=== PATIENT | female | born 1980 | race Caucasian/White ===

== ENCOUNTER 2017-06-16 10:44 | Emergency (ER) | payer OTHER ==
[2017-06-16] MEDS ORDERED: SODIUM CHLORIDE 0.9% 1,000 ML IV ONE ×2 (11:34→12:16)
[2017-06-16 11:37] LABS: BASOPHILS # (AUTO) 0.1 10^3/uL (0.0-0.1); BASOPHILS % (AUTO) 0.7 %; EOSINOPHILS # (AUTO) 0.1 10^3/uL (0.0-0.7); EOSINOPHILS % (AUTO) 0.7 %; HCT - HEMATOCRIT 45.8 % (37.0-47.0); HGB - HEMOGLOBIN 15.4 g/dL (12.0-16.0); LYMPHOCYTES # (AUTO) 0.5 10^3/uL (1.5-3.5); LYMPHOCYTES % (AUTO) 3.4 %; MEAN CORPUSCULAR HEMOGLOBIN 28.7 pg (27.0-31.0); MEAN CORPUSCULAR HGB CONC 33.6 g/dL (32.0-36.0); MEAN CORPUSCULAR VOLUME 85.3 fL (81.0-99.0); MONOCYTES # (AUTO) 0.3 10^3/uL (0.0-1.0); MONOCYTES % (AUTO) 1.9 %; NEUTROPHILS # (AUTO) 13.5 10^3/uL (1.5-6.6); NEUTROPHILS % (AUTO) 93.3 %; RED BLOOD COUNT 5.37 10^6/uL (4.20-5.40); RED CELL DISTRIBUTION WIDTH 13.4 % (12.0-15.0); UNCORRECTED WHITE BLOOD COUNT 14.5 x10^3/uL; WHITE BLOOD COUNT 14.5 x10^3/uL (4.8-10.8)
[2017-06-16 11:37] LABS: BILIRUBIN,URINE NEGATIVE (NEGATIVE)
[2017-06-16 11:38] LABS: UA w/ MICROSCOPIC CHARGE YES
[2017-06-16 11:39] LABS: HCG UR QUAL NEGATIVE
[2017-06-16 11:40] LABS: ALBUMIN/GLOBULIN RATIO 1.4 (1.0-2.2); BILIRUBIN,TOTAL 0.5 mg/dL (0.2-1.0); CALCIUM 9.6 mg/dL (8.5-10.3); CREATININE 0.8 mg/dL (0.4-1.0); POTASSIUM 4.2 mmol/L (3.5-5.0); TOTAL PROTEIN 8.2 g/dL (6.7-8.2)
[2017-06-16 11:54] LABS: WBC,URINE 0-3 /HPF (0-5)
[2017-06-16 11:55] LABS: UR CULTURE IF IND NOT INDICATED
--- NOTE | 2017-06-16 12:03 | ED Physician Documentation ---
PD HPI NVD - Stated complaint Stated Complaint: VOMITING,DIARRHEA - Chief complaint Chief Complaint: Abd Pain - History obtained from History obtained from: Patient - History of Present Illness Timing - onset: Today (about 6 am this morning.) Timing - duration: Hours Timing - details: Abrupt onset, Still present Associated symptoms: Abdominal pain, Loss of appetite. No: Fever Contributing factors: Sick contact (other family members with similar a few days ago) Improved by: No: Vomiting Worsened by: Eating, Position Similar symptoms before: Has not had sx before Recently seen: Not recently seen Review of Systems Constitutional: reports: Chills, Myalgias, Fatigue. denies: Fever Nose: denies: Rhinorrhea / runny nose, Congestion Throat: denies: Sore throat Cardiac: denies: Chest pain / pressure Respiratory: denies: Cough GI: reports: Abdominal Pain, Nausea, Vomiting, Diarrhea. 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: Breast reduction - Present Medications Home Medications: Ambulatory Orders Medication Instructions Recorded Confirmed HYDROcod/ACETAM 5/325 [[place] 5/325] 1 - 2 ea PO Q6H PRN #15 tablet 09/11/1507/21 Propranolol [Inderal] 10 mg PO BID 09/11/15 06/16/17 Ibuprofen [Motrin] 1 tab PO Q8HR PRN 06/03/16 06/16/17 Diphenoxylate HCl/Atropine 1 each PO Q6H PRN #12 tablet 06/16/17 [Diphenoxylate-Atrop 2.5-0.025] Ondansetron Odt [Zofran] 4 mg TL Q6H PRN #15 tablet 06/16/17 - Allergies Allergies/Adverse Reactions: Allergies Allergy/AdvReac Type Severity Reaction Status Date / Time amoxicillin Allergy Unknown Verified 06/16/17 10:50 - Social History Does the pt smoke?: No Smoking Status: Never smoker Does the pt drink ETOH?: No Does the pt have substance abuse?: No - Immunizations Immunizations are current?: Yes - POLST Patient has POLST: No PD ED PE NORMAL - Vitals Vital signs reviewed: Yes - General General: Alert and oriented X 3, Well developed/nourished, Other (appears ill and has emesis bag in hand. ) - HEENT HEENT: PERRL (nonicteric), Pharynx benign - Neck Neck: Supple, no meningeal sign, No adenopathy - Cardiac Cardiac: RRR, No murmur - Respiratory Respiratory: Clear bilaterally - Abdomen Abdomen: Normal bowel sounds, Soft, Non distended, No organomegaly, Other ( diffusely mild tender without guarding. ) - Female Female : Deferred - Rectal Rectal: Deferred - Back Back: No CVA TTP - Derm Derm: Normal color, Warm and dry - Neuro Neuro: Alert and oriented X 3, No motor deficit, Normal speech Results - Vitals Vitals: Vital Signs - 24 hr 06/16/17 06/16/17 12:33 13:16 Heart Rate 109 H 105 H Respiratory 16 16 Rate Blood Pressure 147/97 H 148/82 H O2 Saturation 100 98 Oxygen O2 Source Room air - Labs Labs: Laboratory Tests 06/16/17 06/16/17 06/16/17 11:00 11:00 11:30 WBC 14.5 H RBC 5.37 Hgb 15.4 Hct 45.8 MCV 85.3 MCH 28.7 MCHC 33.6 RDW 13.4 Plt Count 278 MPV 9.0 Neut # 13.5 H Lymph # 0.5 L [place] # 0.3 Eos # 0.1 Baso # 0.1 Absolute Nucleated RBC 0.00 Nucleated RBC % 0.0 Sodium 138 Potassium 4.2 Chloride 106 Carbon Dioxide 19 L Anion Gap 13.0 BUN 17 Creatinine 0.8 Estimated GFR (MDRD) 80 L Glucose 135 H Calcium 9.6 Total Bilirubin 0.5 AST 36 ALT 65 H Alkaline Phosphatase 79 Total Protein 8.2 Albumin 4.8 Globulin 3.4 Albumin/Globulin Ratio 1.4 Lipase 26 Urine Color YELLOW Urine Clarity CLEAR Urine pH 6.0 Ur Specific [place] 1.025 Urine Protein NEGATIVE Urine Glucose (UA) NEGATIVE Urine Ketones NEGATIVE Urine Occult Blood TRACE-INTA Urine Nitrite NEGATIVE Urine Bilirubin NEGATIVE Urine Urobilinogen 0.2 (NORMAL) Ur Leukocyte Esterase TRACE H Urine RBC 0-5 Urine WBC 0-3 Ur Squamous Epith Cells MOD Squamous H Urine Bacteria None Seen Ur Microscopic Review INDICATED Urine Culture Comments NOT INDICATED Urine HCG, Qual NEGATIVE PD MEDICAL DECISION MAKING - ED course Complexity details: reviewed results, re-evaluated patient (feeling much better with fluids and meds. and other family members had similar last week, now she does. Sounds viral. ), considered differential, d/w patient Departure - Departure Disposition: 01 Home, Self Care Clinical Impression: Nausea vomiting and diarrhea, Dehydration Condition: Stable Record reviewed to determine appropriate education?: Yes Instructions: ED Gastroenteritis Viral Prescriptions: Diphenoxylate HCl/Atropine [Diphenoxylate-Atrop 2.5-0.025] 1 each PO Q6H PRN # 12 tablet PRN Reason: Diarrhea Ondansetron Odt [Zofran] 4 mg TL Q6H PRN #15 tablet PRN Reason: Nausea / Vomiting Comments: Frequent fluids through the day today. [place] food initially and progress as able. Ondansetron if needed for nausea. Diphenoxylate if needed for diarrhea. Recheck if not better over the next 1-2 days. Tylenol if needed for fevers or aches. Presume this is a viral illness that will last 1-2 days and then improve. Discharge Date/Time: 06/16/17 13:21
[2017-06-16] MEDS ORDERED: ONDANSETRON 4 MG/2 ML VIAL IVP STA (12:16)
[2017-06-16] MEDS ORDERED: DIPHENOX/ATROPINE 2.5/0.025 MG TABLET PO STA (12:17)
[2017-06-16] MEDS ORDERED: KETOROLAC 60 MG/2 ML VIAL IVP STA (12:18)
[2017-06-16] MEDS ORDERED: DIPHENOX/ATROPINE 2.5/0.025 MG TABLET PO ONE (12:30)
[2017-06-16] MEDS ORDERED: KETOROLAC 30 MG/ML VIAL ONE (12:30)
[2017-06-16] MEDS ORDERED: ONDANSETRON 4 MG/2 ML VIAL ONE (12:30)
[2017-06-16 13:17] VITALS: BP 148/82
== END 2017-06-16 13:21 | disposition home or self-care (01) ==
LOC: ED 10:44
DX: R11.2 Nausea with vomiting, unspecified (principal); R19.7 Diarrhea, unspecified; E86.0 Dehydration; I10 Essential (primary) hypertension
CPT/HCPCS: 36415; 80053; 81001; 81025; 83690; 85025; 96361; 96374; 96375; 99283; 99284; A9270; 81003; 87086

== ENCOUNTER 2017-06-17 21:07 | Emergency (ER) | payer OTHER ==
--- NOTE | 2017-06-17 21:33 | ED Physician Documentation ---
PD HPI ABD PAIN - Stated complaint Stated Complaint: ABD PX - Chief complaint Chief Complaint: Abd Pain - History obtained from History obtained from: Patient - History of Present Illness Timing - onset: How many days ago (2) Timing - details: Gradual onset, Waxing and waning Pain level max: 10 Pain level now: 9 Quality: Pain Location: Other (across lower abdomen, worst in RLQ) Radiation: Other (no radiation) Improved by: Laying still Worsened by: Moving, Palpation Associated symptoms: Fever (104.4), Nausea ("mostly gone", per patient), Diarrhea (worsening). No: Vomiting Similar symptoms before: No diagnosis Recently seen: Emergency Dept - Additional information Additional information: T+R from this ED yesterday for nausea, vomiting, and diarrhea, along with abdominal cramping pain. She was prescribed lomotil and zofran, and says the nausea is "mostly gone", but that the diarrhea worsened during the day. She also notes sweats and chills, took tylenol at 2 PM. came home from work this evening and measured her temperature (she had not measured her temperature during the day), and found result to be 104.4 and thus brought her to ED. Review of Systems Constitutional: reports: Fever, Chills, Sweats Throat: denies: Sore throat Cardiac: reports: Reviewed and negative Respiratory: reports: Reviewed and negative GI: reports: Abdominal Pain, Nausea ("mostly gone" , per patient), Diarrhea. denies: Vomiting : denies: Dysuria, Frequency Skin: reports: Reviewed and negative Musculoskeletal: reports: Reviewed and negative Neurologic: denies: Generalized weakness, Headache PD PAST MEDICAL HISTORY - Past Medical History Cardiovascular: Hypertension, Arrhythmia Neuro: Headache/migraine - Past Surgical History Past Surgical History: Yes /[employer] ADJUST[employer]: Breast reduction - Present Medications Home Medications: Ambulatory Orders Medication Instructions Recorded Confirmed Propranolol [Inderal] 10 mg PO BID 09/11/15 06/17/17 Ibuprofen [Motrin] 1 tab PO Q8HR PRN 06/03/16 06/17/17 Diphenoxylate HCl/Atropine 1 each PO Q6H PRN #12 tablet 06/16/17 06/17/17 [Diphenoxylate-Atrop 2.5-0.025] Ondansetron Odt [Zofran] 4 mg TL Q6H PRN #15 tablet 06/16/17 06/17/17 HYDROcod/ACETAM 5/325 [[place] 5/325] 1 - 2 ea PO Q6H PRN #12 tablet 06/18/17 - Allergies Allergies/Adverse Reactions: Allergies Allergy/AdvReac Type Severity Reaction Status Date / Time amoxicillin Allergy Unknown Verified 06/17/17 21:16 - Social History Does the pt smoke?: No Smoking Status: Never smoker Does the pt drink ETOH?: No Does the pt have substance abuse?: No - Immunizations Immunizations are current?: Yes - POLST Patient has POLST: No PD ED PE NORMAL - Vitals Vital signs reviewed: Yes - General General: Alert and oriented X 3, No acute distress, Well developed/nourished - HEENT HEENT: Moist mucous membranes - Neck Neck: Supple, no meningeal sign - Cardiac Cardiac: RRR, No murmur - Respiratory Respiratory: No respiratory distress, Clear bilaterally - Abdomen Abdomen: Soft, Non distended, Other (RLQ tenderness without guarding or rebound) - Back Back: No CVA TTP - Derm Derm: Normal color, Warm and dry, No rash - Extremities Extremities: No edema Results - Vitals Vitals: Vital Signs - 24 hr 06/17/17 06/18/17 21:11 00:37 Temperature 38.5 C H 36.9 C Heart Rate 101 H 89 Respiratory 19 16 Rate Blood Pressure 143/90 H 100/51 L O2 Saturation 97 97 Oxygen O2 Source Room air - Labs Labs: Laboratory Tests 06/17/17 06/17/17 06/17/17 22:10 22:10 22:35 WBC 7.7 RBC 4.60 Hgb 13.1 Hct 39.5 MCV 85.9 MCH 28.6 MCHC 33.3 RDW 13.3 Plt Count 200 MPV 8.1 Neut # 5.8 Lymph # 1.2 L [place] # 0.5 Eos # 0.1 Baso # 0.0 Absolute Nucleated RBC 0.00 Nucleated RBC % 0.0 Sodium 137 Potassium 2.9 L Chloride 104 Carbon Dioxide 22 Anion Gap 11.0 BUN 5 L Creatinine 0.7 Estimated GFR (MDRD) 93 Glucose 112 H Calcium 8.1 L Total Bilirubin 0.5 AST 52 H ALT 77 H Alkaline Phosphatase 51 Total Protein 6.7 Albumin 3.5 Globulin 3.2 Albumin/Globulin Ratio 1.1 Lipase 15 L Urine Color YELLOW Urine Clarity CLEAR Urine pH 6.0 Ur Specific [place] <=1.005 Urine Protein NEGATIVE Urine Glucose (UA) NEGATIVE Urine Ketones NEGATIVE Urine Occult Blood TRACE-LYSE Urine Nitrite NEGATIVE Urine Bilirubin NEGATIVE Urine Urobilinogen 0.2 (NORMAL) Ur Leukocyte Esterase SMALL H Urine RBC 0-5 Urine WBC 11-25 H Ur Squamous Epith Cells MOD Squamous H Urine Bacteria Few Ur Microscopic Review INDICATED Urine Culture Comments NOT INDICATED - Rads (name of study) CT A/P Radiology: Prelim report reviewed, See rad report PD MEDICAL DECISION MAKING - ED course Complexity details: reviewed old records, reviewed results, re-evaluated patient , considered differential, d/w patient ED course: After tests resulted, including CT A/P (which is unremarkable and does not demonstrate etiology of pain, fever, or N/V/D), reevaluated and patient appears comfortable, reports significant improvement in her pain. She did not have any BM, diarrheal or otherwise, while in ED and thus sample not collected. She denies recent antibiotic use and denies h/o similar symptoms (diarrhea, abdominal pain, fevers); IBD and c. diff colitis considered, but these factors, as well as a lack of inflammatory changes on CT and normal WBC make these unlikely. Appendicitis also considered, although this would be a particularly high fever for this diagnosis, and there is no evidence on CT to support the diagnosis. Patient and spouse report that several family members have had GI symptoms recently (N/V/D), raising suspicion for infectious gastroenteritis. She was able to tolerate PO in ED (potassium and vicodin). Instructed to return if worse, and to f/u with PMD next available appointment Departure - Departure Disposition: 01 Home, Self Care Clinical Impression: Hypokalemia Abdominal pain Qualifiers: Abdominal location: generalized Qualified Code(s): R10.84 - Generalized abdominal pain Fever Qualifiers: Fever type: unspecified Qualified Code(s): R50.9 - Fever, unspecified Condition: Good Instructions: ED Abdominal Pain Unkn Cause Prescriptions: HYDROcod/ACETAM 5/325 [[place] 5/325] 1 - 2 ea PO Q6H PRN #12 tablet PRN Reason: Pain Comments: Follow up with your primary care physician/provider in 3-5 days Forms: Activity restrictions Discharge Date/Time: 06/18/17 00:58
[2017-06-17] MEDS ORDERED: SODIUM CHLORIDE 0.9% 1,000 ML IV STA (22:06)
[2017-06-17] MEDS ORDERED: MORPHINE 2 MG/ML SYRINGE IVP STA (22:06)
[2017-06-17] MEDS ORDERED: ACETAMINOPHEN 1,000 MG/100 ML 100 ML IV STA (22:06)
[2017-06-17] MEDS ORDERED: MORPHINE 2 MG/ML SYRINGE ONE (22:17)
[2017-06-17] MEDS ORDERED: ACETAMINOPHEN 1,000 MG/100 ML 100 ML IV ONE (22:18)
[2017-06-17 22:19] LABS: BASOPHILS % (AUTO) 0.3 %; EOSINOPHILS # (AUTO) 0.1 10^3/uL (0.0-0.7); EOSINOPHILS % (AUTO) 1.7 %; HCT - HEMATOCRIT 39.5 % (37.0-47.0); HGB - HEMOGLOBIN 13.1 g/dL (12.0-16.0); LYMPHOCYTES # (AUTO) 1.2 10^3/uL (1.5-3.5); LYMPHOCYTES % (AUTO) 15.8 %; MEAN CORPUSCULAR HEMOGLOBIN 28.6 pg (27.0-31.0); MEAN CORPUSCULAR HGB CONC 33.3 g/dL (32.0-36.0); MEAN CORPUSCULAR VOLUME 85.9 fL (81.0-99.0); MEAN PLATELET VOLUME 8.1 fL (7.9-10.8); MONOCYTES # (AUTO) 0.5 10^3/uL (0.0-1.0); MONOCYTES % (AUTO) 6.2 %; NEUTROPHILS # (AUTO) 5.8 10^3/uL (1.5-6.6); RED CELL DISTRIBUTION WIDTH 13.3 % (12.0-15.0); UNCORRECTED WHITE BLOOD COUNT 7.7 x10^3/uL; WHITE BLOOD COUNT 7.7 x10^3/uL (4.8-10.8)
[2017-06-17 22:32] LABS: ALBUMIN/GLOBULIN RATIO 1.1 (1.0-2.2); BILIRUBIN,TOTAL 0.5 mg/dL (0.2-1.0); CALCIUM 8.1 mg/dL (8.5-10.3); CREATININE 0.7 mg/dL (0.4-1.0); POTASSIUM 2.9 mmol/L (3.5-5.0); TOTAL PROTEIN 6.7 g/dL (6.7-8.2)
[2017-06-17] MEDS ORDERED: ONDANSETRON 4 MG/2 ML VIAL IVP STA (22:40)
[2017-06-17 22:41] LABS: BILIRUBIN,URINE NEGATIVE (NEGATIVE)
[2017-06-17 22:45] LABS: UA w/ MICROSCOPIC CHARGE YES
[2017-06-17] MEDS ORDERED: ONDANSETRON 4 MG/2 ML VIAL ONE (22:48)
[2017-06-17 22:51] LABS: UR CULTURE IF IND NOT INDICATED
[2017-06-17] MEDS ORDERED: IOPAMIDOL-300 100 ML VIAL ONE (22:52)
[2017-06-17] MEDS ORDERED: IOPAMIDOL-300 100 ML VIAL IVP ONE (23:14)
--- NOTE | 2017-06-17 23:30 | CT Preliminary Report ---
Exam: CT ABDOMEN/PELVIS W/ IMPRESSION: 1. No acute inflammatory or obstructive process seen in the abdomen or pelvis. 2. Fatty liver. [facility] SITE ID: [id number]
--- NOTE | 2017-06-17 23:38 | CT Report ---
EXAM: CT ABDOMEN AND PELVIS EXAM DATE: 06/17/2017 11:16 PM. CLINICAL HISTORY: Right lower quadrant pain, fever. COMPARISONS: None. TECHNIQUE: Routine helical CT imaging was performed through the abdomen and pelvis. IV contrast: 100 mL Isovue 300. Enteric contrast: No . Reconstructions: Coronal and sagittal. In accordance with CT protocol optimization, one or more of the following dose reduction techniques w ere utilized for this exam: automated exposure control, adjustment of mA and/or KV based on patient s ize, or use of iterative reconstructive technique. FINDINGS: Lung Bases: Unremarkable. Liver: Fatty. No suspicious masses. Gallbladder/Bile Ducts: Unremarkable. Spleen: Unremarkable. Pancreas: Unremarkable. Adrenal Glands: Unremarkable. Kidneys: Unremarkable. No suspicious masses or hydronephrosis. Peritoneal Cavity/Bowel: No bowel obstruction or inflammatory process seen. No free air or significan t free fluid. No masses or adenopathy. The appendix is normal. No excessive stool burden. Pelvic Organs: Bladder, uterus, and adnexa appear unremarkable. Vasculature: No aneurysms or other significant abnormality. Bones: No significant abnormality. Other: None. IMPRESSION: 1. No acute inflammatory or obstructive process seen in the abdomen or pelvis. 2. Fatty liver. [facility] Referring Provider Line: [phone] SITE ID: [id number]
[2017-06-18 00:38] VITALS: BP 100/51
[2017-06-18] MEDS ORDERED: POTASSIUM BICARB 25 MEQ TABLET PO STA (00:46)
[2017-06-18] MEDS ORDERED: HYDROcod/ACETAM 5/325 MG TABLET PO STA (00:46)
[2017-06-18] MEDS ORDERED: HYDROcod/ACETAM 5/325 MG TABLET ONE (00:58)
[2017-06-18] MEDS ORDERED: POTASSIUM BICARB 25 MEQ TABLET PO ONE (00:58)
== END 2017-06-18 00:58 | disposition home or self-care (01) ==
LOC: ED 21:07
DX: E87.6 Hypokalemia (principal); R10.84 Generalized abdominal pain; R50.9 Fever, unspecified; I10 Essential (primary) hypertension
CPT/HCPCS: 36415; 74177; 80053; 81001; 83690; 85025; 96361; 96365; 96375; 99283; A9270; J0131; J2270; Q9967; 81003; 87086

== ENCOUNTER 2018-03-20 07:57 | Outpatient (CLI) | payer OTHER ==
[2018-03-20 08:24] VITALS: BP 132/84
== END 2018-03-20 09:35 | disposition home or self-care (01) ==
LOC: WFO 07:57 → FBP 08:00 → WFO 09:35
PROVIDERS: ATTEND Obstetrics & Gynecology
DX: O09.523 Supervision of elderly multigravida, third trimester (principal); Z3A.36 36 weeks gestation of pregnancy
CPT/HCPCS: 99212

== ENCOUNTER 2018-03-31 21:01 | Inpatient (IN) | payer OTHER ==
[2018-03-31] MEDS ORDERED: PROCHLORPERAZINE 10 MG/2 ML VIAL IVP STA (21:26)
[2018-03-31] MEDS ORDERED: diphenhydrAMINE INJ 50 MG/ML VIAL IVP STA (21:26)
[2018-03-31] MEDS ORDERED: KETOROLAC 60 MG/2 ML VIAL IVP STA (21:26)
[2018-03-31] MEDS ORDERED: SODIUM CHLORIDE 0.9% 1,000 ML IV ONE (21:26)
--- NOTE | 2018-03-31 21:28 | ED Physician Documentation ---
PD HPI HEADACHE - Stated complaint Stated Complaint: HARDEN - Chief complaint Chief Complaint: Heent - History obtained from History obtained from: Patient, Family - History of Present Illness Timing - onset: Today Timing - onset during: Rest Timing - duration: Days (1) Timing - details: Gradual onset Pain level max: 9 Pain level now: 9 Location: Right Quality: Throbbing, Aching Associated symptoms: Nausea, Other (photophobia). No: Fever, Stiff neck, Vomiting, Weakness, Numbness, Syncope, Seizure Improved by: Rest, Dark room Worsened by: Light, Noise, Moving Contributing factors: No: Anticoagulated, Possible carbon monoxide, Hypertension , Recent illness Similar symptoms before: Diagnosis (migraines) - Additional information Additional information: 1 week with an epidural and vaginal delivery. not . States this is similar to her prior headaches. She states that normally her blood pressure is between 125 and 135 systolic. Review of Systems Ten Systems: 10 systems reviewed and negative Constitutional: denies: Fever, Chills Eyes: reports: Photophobia. denies: Decreased vision Ears: denies: Ear pain Nose: denies: Rhinorrhea / runny nose, Congestion Throat: denies: Sore throat Cardiac: denies: Chest pain / pressure Respiratory: denies: Dyspnea, Cough GI: denies: Abdominal Pain, Vomiting, Diarrhea : denies: Dysuria, Frequency, Hesitancy Skin: denies: Rash Musculoskeletal: denies: Neck pain, Back pain Neurologic: denies: Focal weakness, Numbness, Confused, Altered mental status, Headache PD PAST MEDICAL HISTORY - Past Medical History Cardiovascular: Hypertension, Arrhythmia - Past Surgical History Past Surgical History: Yes /[place] [employer] [place]: Breast reduction - Present Medications Home Medications: Ambulatory Orders Medication Instructions Recorded Confirmed Propranolol [Inderal] 10 mg PO BID 09/11/15 06/17/17 Ibuprofen [Motrin] 1 tab PO Q8HR PRN 06/03/16 06/17/17 Diphenoxylate HCl/Atropine 1 each PO Q6H PRN #12 tablet 06/16/17 06/17/17 [Diphenoxylate-Atrop 2.5-0.025] Ondansetron Odt [Zofran] 4 mg TL Q6H PRN #15 tablet 06/16/17 06/17/17 HYDROcod/ACETAM 5/325 [[place] 5/325] 1 - 2 ea PO Q6H PRN #12 tablet 06/18/17 - Allergies Allergies/Adverse Reactions: Allergies Allergy/AdvReac Type Severity Reaction Status Date / Time amoxicillin Allergy Unknown Verified 03/31/18 21:10 - Social History Does the pt smoke?: No Smoking Status: Never smoker Does the pt drink ETOH?: No Does the pt have substance abuse?: No - Immunizations Immunizations are current?: Yes - POLST Patient has POLST: No PD ED PE NORMAL - Vitals Vital signs reviewed: Yes - General General: Alert and oriented X 3 - HEENT HEENT: Atraumatic, PERRL, EOMI, Ears normal, Moist mucous membranes, Pharynx benign - Neck Neck: Supple, no meningeal sign, No JVD, No bruit - Cardiac Cardiac: RRR, Strong equal pulses - Respiratory Respiratory: No respiratory distress - Abdomen Abdomen: Soft, Non tender, Non distended - Back Back: No spinal TTP - Derm Derm: Warm and dry - Extremities Extremities: No calf tenderness / cord, Other (trace LE edema.) - Neuro Neuro: Alert and oriented X 3, wage hand 2-12 intact, No motor deficit, No sensory deficit, Normal speech Eye Opening: Spontaneous Motor: Obeys Commands Verbal: Oriented GCS Score: 15 - Psych Psych: Normal mood, Normal affect Results - Vitals Vitals: Vital Signs - 24 hr 03/31/18 03/31/18 21:06 23:09 Temperature 36.9 C 36.8 C Heart Rate 80 57 L Respiratory 17 15 Rate Blood Pressure 183/108 H 154/109 H O2 Saturation 98 94 Oxygen O2 Source Room air - Labs Labs: Laboratory Tests 03/31/18 03/31/18 03/31/18 21:47 21:47 21:55 WBC 10.9 H RBC 4.34 Hgb 12.7 Hct 38.1 MCV 87.7 MCH 29.3 MCHC 33.4 RDW 14.4 Plt Count 277 MPV 8.1 Neut # (Auto) 7.9 H Lymph # (Auto) 2.2 [place] # (Auto) 0.5 Eos # (Auto) 0.2 Baso # (Auto) 0.0 Absolute Nucleated RBC 0.01 Nucleated RBC % 0.0 Sodium 140 Potassium 3.7 Chloride 106 Carbon Dioxide 25 Anion Gap 9.0 BUN 12 Creatinine 0.7 Estimated GFR (MDRD) 93 Glucose 92 Calcium 8.6 Total Bilirubin 0.4 AST 17 ALT 27 Alkaline Phosphatase 89 Total Protein 6.6 L Albumin 3.4 Globulin 3.2 Albumin/Globulin Ratio 1.1 Lipase 39 Urine Color YELLOW Urine Clarity HAZY Urine pH 6.5 Ur Specific [place] <=1.005 Urine Protein NEGATIVE Urine Glucose (UA) NEGATIVE Urine Ketones NEGATIVE Urine Occult Blood LARGE H Urine Nitrite NEGATIVE Urine Bilirubin NEGATIVE Urine Urobilinogen 0.2 (NORMAL) Ur Leukocyte Esterase TRACE H Urine RBC 0-5 Urine WBC 4-5 Ur Squamous Epith Cells FEW Squamous Urine Bacteria None Seen Ur Microscopic Review INDICATED Urine Culture Comments INDICATED - [facility] (name of study) ct angio head Radiology: Prelim report reviewed, EMP read contemporaneously, See rad report ( No acute abnormality) ct angio neck Radiology: Prelim report reviewed, EMP read contemporaneously, See rad report ( CT Head: No acute intracranial abnormality. Specifically, no evidence of acute infarct, hemorrhage, or mass lesion. No abnormal enhancement. Near complete opacification of the left maxillary antrum. Partial opacification of the left sphenoid sinus. CTA Head: Normal CTA of the head. No significant vascular stenosis, dissection, or aneurysm. ) PD MEDICAL DECISION MAKING - ED course Complexity details: reviewed old records, reviewed results, re-evaluated patient , considered differential (No evidence of subarachnoid hemorrhage, aneurysm, Sinus venous thrombosis, tumor or mass), d/w patient, d/w family, d/w practice management consultant ED course: Patient is a 37-year-old female who is in 1 week normal spontaneous vaginal delivery and epidural placement at [facility]. Has developed a headache over the past day and a half. Similar to her prior migraines. She tried butalbital at home without relief. Also tried Motrin. States her normal blood pressure is 125-135 systolic. She did take her usual propanolol today as well. No proteinuria. Normal LFTs. CT angiogram head and neck were ordered. I discussed the case with Dr. Jacinto, OB on-call and will start on mag IV and admit for preeclampsia. This document was made in part using voice recognition software. While efforts are made to proofread this document, sound alike and grammatical errors may occur. - Sepsis Event Vital Signs: Vital Signs - 24 hr 03/31/18 03/31/18 21:06 23:09 Temperature 36.9 C 36.8 C Heart Rate 80 57 L Respiratory 17 15 Rate Blood Pressure 183/108 H 154/109 H O2 Saturation 98 94 Oxygen O2 Source Room air Departure - Departure Disposition: 66 [facility] DC/Xfer Clinical Impression: Headache Qualifiers: Headache type: unspecified Headache chronicity pattern: acute headache Intractability: not intractable Qualified Code(s): R51 - Headache Hypertension Qualifiers: Hypertension type: unspecified Qualified Code(s): I10 - Essential (primary) hypertension Pre-eclampsia Qualifiers: Trimester: unspecified trimester Qualified Code(s): O14.90 - Unspecified pre- eclampsia, unspecified trimester Condition: Stable
[2018-03-31 21:51] LABS: BASOPHILS % (AUTO) 0.3 %; EOSINOPHILS # (AUTO) 0.2 10^3/uL (0.0-0.7); EOSINOPHILS % (AUTO) 1.9 %; HGB - HEMOGLOBIN 12.7 g/dL (12.0-16.0); LYMPHOCYTES # (AUTO) 2.2 10^3/uL (1.5-3.5); LYMPHOCYTES % (AUTO) 20.5 %; MEAN CORPUSCULAR HEMOGLOBIN 29.3 pg (27.0-31.0); MEAN CORPUSCULAR HGB CONC 33.4 g/dL (32.0-36.0); MEAN CORPUSCULAR VOLUME 87.7 fL (81.0-99.0); MEAN PLATELET VOLUME 8.1 fL (7.9-10.8); MONOCYTES # (AUTO) 0.5 10^3/uL (0.0-1.0); NEUTROPHILS # (AUTO) 7.9 10^3/uL (1.5-6.6); NEUTROPHILS % (AUTO) 72.3 %; PLT - PLATELET COUNT 277 10^3/uL (130-450); RED BLOOD COUNT 4.34 10^6/uL (4.20-5.40); RED CELL DISTRIBUTION WIDTH 14.4 % (12.0-15.0); WHITE BLOOD COUNT 10.9 x10^3/uL (4.8-10.8)
[2018-03-31 22:04] LABS: ALBUMIN 3.4 g/dL (3.2-5.5); ALBUMIN/GLOBULIN RATIO 1.1 (1.0-2.2); BILIRUBIN,TOTAL 0.4 mg/dL (0.2-1.0); CALCIUM 8.6 mg/dL (8.5-10.3); CREATININE 0.7 mg/dL (0.4-1.0); TOTAL PROTEIN 6.6 g/dL (6.7-8.2)
[2018-03-31 22:45] LABS: BILIRUBIN,URINE NEGATIVE (NEGATIVE); GLUCOSE, URINE (UA) NEGATIVE (NEGATIVE); KETONES,URINE (UA) NEGATIVE (NEGATIVE); LEUKOCYTE ESTERASE, URINE TRACE (NEGATIVE); NITRITE,URINE NEGATIVE (NEGATIVE); OCCULT BLOOD,URINE LARGE (NEGATIVE); PH,URINE 6.5 PH (5.0-7.5); PROTEIN,URINE NEGATIVE (NEGATIVE); UROBILINOGEN,URINE 0.2 (NORMAL) E.U./dL (NORMAL)
[2018-03-31 22:47] LABS: CLARITY,URINE HAZY (CLEAR)
[2018-03-31 22:54] LABS: BACTERIA,URINE None Seen /HPF (None Seen); RBC,URINE 0-5 /HPF (0-5); SQUAMOUS EPITHELIAL CELL,UR FEW Squamous (<= Few)
[2018-03-31] MEDS ORDERED: IOPAMIDOL-300 100 ML VIAL ONE (23:30)
[2018-04-01] MEDS ORDERED: MAGNESIUM SULFATE 2 GRAM 2 GM/50 ML BAG IV ONE ×2 (00:03)
[2018-04-01] MEDS ORDERED: IOPAMIDOL-300 100 ML VIAL IVP ONE ×2 (00:04→08:09)
[2018-04-01] MEDS ORDERED: SODIUM CHLORIDE FLUSH 0.9% 10 ML SYRINGE IVP PRN (00:47)
[2018-04-01] MEDS ORDERED: ONDANSETRON 4 MG/2 ML VIAL IVP PRN (00:47)
[2018-04-01] MEDS ORDERED: LABETALOL 100 MG TABLET PO SCH ×4 (00:54→14:00)
--- NOTE | 2018-04-01 00:55 | CT Report ---
Reason: 1 week post , headache Procedure Date: 04/01/2018 Accession Number: [id number] / [id number] Procedure: CT - Head Angio CPT Code: FULL RESULT: EXAM: CT ANGIOGRAM HEAD. CT SCAN OF THE HEAD WITHOUT AND WITH CONTRAST. EXAM DATE: 04/01/2018 12:06 AM CLINICAL HISTORY: 1 week . Headache. COMPARISON: None. TECHNIQUE: - CT Scan Head: Using a multidetector scanner, axial images were acquired from the foramen magnum to the skull vertex prior to and following contrast administration. - CT Angiogram: Using a multidetector scanner, high-resolution axial images were acquired from the skull base through vertex following rapid infusion of intravenous contrast. Reformats: Multiplanar MIP reformats were reconstructed. Nascet criteria used for stenosis measurement. IV Contrast: ISOVUE 300 80mL. In accordance with CT protocol optimization, one or more of the following dose reduction techniques were utilized for this exam: automated exposure control, adjustment of mA and/or KV based on patient size, or use of iterative reconstructive technique. FINDINGS: NON-CONTRAST HEAD: Parenchyma: No intraparenchymal hemorrhage. No evidence of mass, midline shift, or CT findings of infarction. Benedict-white differentiation is distinct. No abnormal enhancement. Extraaxial Spaces: Normal for age. No subdural or epidural collections identified. Ventricles: Normal in size and position. Sinuses and orbits: Near complete opacification of the left maxillary antrum. Partial opacification of the left sphenoid. Other paranasal sinuses and mastoids are unremarkable. Bones: No evidence of fracture or calvarial defect. Other: None. POST-CONTRAST HEAD: No abnormal enhancement. CT ANGIOGRAM HEAD: Vertebral arteries are codominant. Basilar artery and both posterior cerebral arteries are patent and unremarkable. Both internal carotid arteries, anterior and middle cerebral arteries are patent and unremarkable. DURAL VENOUS SINUSES AND MAJOR CENTRAL VEINS: Patent. IMPRESSION: CT Head: No acute intracranial abnormality. Specifically, no evidence of acute infarct, hemorrhage, or mass lesion. No abnormal enhancement. Near complete opacification of the left maxillary antrum. Partial opacification of the left sphenoid sinus. CTA Head: Normal CTA of the head. No significant vascular stenosis, dissection, or aneurysm. [facility]
[2018-04-01] MEDS ORDERED: MAGNESIUM SULFATE IN WATER 20 GM/500 ML IV.SOLN IV SCH ×2 (01:00→07:48)
--- NOTE | 2018-04-01 01:02 | CT Report ---
Reason: 1 week post , headache Procedure Date: 04/01/2018 Accession Number: [id number] / [id number] Procedure: CT - Neck Angio CPT Code: FULL RESULT: EXAM: CT ANGIOGRAM NECK EXAM DATE: 04/01/2018 12:09 AM. CLINICAL HISTORY: headache. COMPARISON: None. TECHNIQUE: Routine axial helical imaging was performed from the skull base through the aortic arch. Reconstructions: Routine multiplanar 3D MIP reconstructions. IV Contrast: ISOVUE 300 80mL. Evaluation of arterial stenosis is based on a NASCET method of measurement. In accordance with CT protocol optimization, one or more of the following dose reduction techniques were utilized for this exam: automated exposure control, adjustment of mA and/or KV based on patient size, or use of iterative reconstructive technique. FINDINGS: Aortic arch, origins of the great vessels, brachiocephalic and both subclavian arteries are patent and unremarkable. Right Carotid: The common carotid, internal carotid, and external carotid arteries are widely patent. No dissection, significant atherosclerotic plaque, or calcification identified. Left Carotid: The common carotid, internal carotid, and external carotid arteries are widely patent. No dissection, significant atherosclerotic plaque, or calcification identified. Vertebrals: The vertebrobasilar system shows no stenoses. Intracranial Circulation: Normal. No stenoses or aneurysms of the visualized vessels. Other: Patchy air space disease is seen at both lung apices, right greater than left. Small bilateral pleural effusions. IMPRESSION: No carotid or vertebral artery narrowing in the neck. Patchy airspace disease at both lung apices, right greater than left. Small bilateral pleural effusions. [facility]
[2018-04-01 02:22] LABS: BILIRUBIN,URINE NEGATIVE (NEGATIVE); GLUCOSE, URINE (UA) NEGATIVE (NEGATIVE); KETONES,URINE (UA) NEGATIVE (NEGATIVE); LEUKOCYTE ESTERASE, URINE NEGATIVE (NEGATIVE); NITRITE,URINE NEGATIVE (NEGATIVE); OCCULT BLOOD,URINE TRACE-LYSE (NEGATIVE); PROTEIN,URINE NEGATIVE (NEGATIVE); UROBILINOGEN,URINE 0.2 (NORMAL) E.U./dL (NORMAL)
[2018-04-01] MEDS: ACETAMINOPHEN 325 MG TABLET PO PRN ×3 (02:36→18:56)
[2018-04-01 03:26] LABS: TOTAL PROTEIN,URINE TIMED < 6 mg/dL
[2018-04-01 03:52] LABS: BACTERIA,URINE None Seen /HPF (None Seen); CLARITY,URINE CLEAR (CLEAR); RBC,URINE 0-5 /HPF (0-5); SQUAMOUS EPITHELIAL CELL,UR RARE Squamous (<= Few)
--- NOTE | 2018-04-01 07:41 | HISTORY & PHYSICAL EXAMINATION ---
DATE OF SERVICE: 04/01/2018 Physician: Brenda Jacinto DO FACOG IDENTIFICATION: This is a 37-year-old G4, P2-0-2-2, status post spontaneous vaginal delivery on 03/24/2018. HISTORY OF PRESENT ILLNESS: This is a patient of [facility]. She had been seeing Dr. Elena Smith for her obstetrical care. From what the patient has told me, this has been remarkable for chronic hypertension, preeclampsia, as well as gestational diabetes mellitus type 1. So far her records are consistent with her report. We do not currently have the patient's delivery note. We do have records from a triage visit on 2017. The patient has a history of chronic hypertension, was on propranolol prior to this . However, she does have elevated blood pressures as noted. On 08/22/2017 at 6 weeks, 4 days, blood pressure 131/89. On 10/17/2017, at 14 weeks 4 days, 151/98. On 11/15/2017, at 18 weeks 5 days, 142/94, and on 2017 at 34 weeks 1 day, 140/77. The patient tells me that she has been on propranolol 10 mg 1 tab p.o. b.i.d. throughout this . She also had gestational diabetes, and I do see some test results for this. Her 1-hour GTT was 187. Three-hour testing showed a fasting of 89, 1 hour of 213, 2 hours of 68 and 3 hours of 89. The patient states that she was induced at 37 weeks with her son, Padmini, secondary to preeclampsia. She denies being given magnesium sulfate. She was actually taken off the propranolol during her intrapartum course. The patient delivered her son, Padmini, on 03/24/2018, and he weighed 5+ pounds. She was kept in house until 03/27/2018 secondary to the baby mainly. After her discharge, she was restarted on propranolol. The patient states that she started having a mild headache, which progressed to a more significant headache. [place] that she had a blood pressure of a systolic in the 180s. She was then told to see her primary care next week. The patient went to [facility] Emergency Department instead. Here in the ED, her blood pressures have significantly been elevated at 183/108 and 154/109. Most recent blood pressure is 159/90. The patient, besides a headache, denies any symptoms of preeclampsia. She has been worked up for other etiologies of her headache and so far, the imaging is still pending. PAST MEDICAL HISTORY 1. Migraine headache. 2. Chronic hypertension. 3. GDMA1 with this most recent . 4. Asthma. PAST SURGICAL HISTORY 1. 2002, wisdom teeth extraction. 2. 2003, breast reduction. 3. 12/2003 D and C secondary to missed AB. ALLERGIES: AMOXICILLIN, WITH WHICH HER THROAT FEELS ITCHY, AND SHE CANNOT TALK. MEDICATIONS 1. Propranolol 10 mg 1 tab p.o. b.i.d. 2. Tylenol p.r.n. 3. Ibuprofen p.r.n. 4. Butalbital p.r.n. SOCIAL HISTORY: Denies any tobacco, alcohol, or illicit drug use. She does use [facility] in [place] versus the [facility] pharmacy. She is dependent of her , Devon, who is retired . The patient's primary woodworking craftsman is Dr. Smith, and her primary care provider is Dr. Cervantes. The patient and her have two children, daughter Isabel age 2-1/2, and son Padmini is 1 week. PAST SURGICAL HISTORY 1. Term spontaneous vaginal delivery at 38 weeks' gestation, Isabel weighed 7 pounds 5 ounces. 2. Son Padmini was delivered at 37 weeks, and induced secondary to chronic hypertension with superimposed preeclampsia. Also she had gestational diabetes mellitus type A1. She denied having a magnesium sulfate during her labor or course. 3. Two spontaneous abortions. PAST GYNECOLOGIC HISTORY: She denies any abnormal Pap smears or sexually transmitted diseases, with the exception of Valtrex. She does have Valtrex as needed. FAMILY HISTORY: She denies any female carcinoma. REVIEW OF SYSTEMS: Negative unless otherwise stated. PHYSICAL EXAMINATION VITAL SIGNS: Temperature is 36.8, heart rate 57, respiratory rate 15. Most recent blood pressure is 159/90. GENERAL: Patient is a well-developed, well-nourished, female in no apparent distress. She has very colorful pink and orange dyed hair. HEENT: Within normal limits. HEART: Rate is regular. No murmurs or rubs. LUNGS: Lungs are clear to auscultation bilaterally. ABDOMEN: Soft, nontender. STUDIES Labs reveal that she has a white count of 10.9, H and H of 12.7 and 38.1, platelets of 277. Sodium 140, potassium 3.7, creatinine 0.7, glucose 92, AST 17 , ALT 27, lipase is 39. Urinalysis significant for large occult blood, trace leukocytes, and few squamous epithelial cells. There is no proteinuria. laboratories reveal that she is A positive, VZV greater than 4000. Rubella immune. HIV nonreactive, as well as hepatitis B, A and C. Syphilis is nonreactive., GC/CT are both negative. On 11/15/2017, hemoglobin A1c is 5.1. A 24-hour urine collection on 03/10/2018 shows she is 458 mg per day. The 03/12/2018 labs showed AST of 21, platelets at 263, creatinine 0.6. ASSESSMENT 1. A 37-year-old G4, P2-0-2-2, status post spontaneous vaginal delivery on . 2. Uncontrolled chronic hypertension with superimposed severe preeclampsia. 3. Gestational diabetes mellitus A1. PLAN 1. We will admit to the hospital. 2. Magnesium sulfate for seizure prophylaxis. 3. Labetalol 100 mg 1 tab p.o. b.i.d. 4. We will check preeclampsia labs as well as a glucose and hemoglobin A1c in the morning. 5. Strict inputs and outputs, with a maximum total input of 150 mL per hour, in order to minimize the chance of pulmonary edema. cc for Dr. Smith; Dr. Cervantes - [facility] cc: [facility] TD: 04/01/2018 01:35 MTDD
[2018-04-01 08:09] LABS: BASOPHILS # (AUTO) 0.1 10^3/uL (0.0-0.1); BASOPHILS % (AUTO) 0.4 %; EOSINOPHILS # (AUTO) 0.2 10^3/uL (0.0-0.7); EOSINOPHILS % (AUTO) 1.3 %; HGB - HEMOGLOBIN 12.7 g/dL (12.0-16.0); LYMPHOCYTES # (AUTO) 1.4 10^3/uL (1.5-3.5); LYMPHOCYTES % (AUTO) 11.2 %; MEAN CORPUSCULAR HEMOGLOBIN 29.3 pg (27.0-31.0); MEAN CORPUSCULAR HGB CONC 33.8 g/dL (32.0-36.0); MEAN CORPUSCULAR VOLUME 86.7 fL (81.0-99.0); MEAN PLATELET VOLUME 8.2 fL (7.9-10.8); MONOCYTES # (AUTO) 0.5 10^3/uL (0.0-1.0); MONOCYTES % (AUTO) 4.3 %; NEUTROPHILS # (AUTO) 10.1 10^3/uL (1.5-6.6); NEUTROPHILS % (AUTO) 82.8 %; PLT - PLATELET COUNT 243 10^3/uL (130-450); RED BLOOD COUNT 4.35 10^6/uL (4.20-5.40); RED CELL DISTRIBUTION WIDTH 14.4 % (12.0-15.0); WHITE BLOOD COUNT 12.2 x10^3/uL (4.8-10.8)
[2018-04-01 08:19] LABS: CREATININE 0.6 mg/dL (0.4-1.0)
[2018-04-01] MEDS ORDERED: ALBUTEROL NEB 2.5 MG/3 ML INH PRN (08:24)
[2018-04-01 08:46] LABS: HB2 TOTAL 13.5 g/dL; HEMOGLOBIN A1C 0.48 g/dL; HEMOGLOBIN A1C % 5.4 % (4.6-6.2)
--- NOTE | 2018-04-01 08:49 | PROVIDER PROGRESS NOTE ---
Subjective - Prog Note Date Prog Note Date: 04/01/18 Prog Note Time: 08:45 - Subjective Pt reports feeling: No change (Pt droped Saturation last night while Sleeping. Started on O2 2 leters nasal canula.) Objective - Vital Signs/Intake & Output Reviewed Vital Signs: Yes Vital Signs: Vital Signs x48h Temp Pulse Pulse Resp BP BP Pulse Ox 04/01/18 06:58 83 16 132/82 H 97 04/01/18 06:00 36.9 C 87 16 134/69 H 97 04/01/18 05:00 81 16 120/74 92 04/01/18 04:29 80 16 117/77 93 04/01/18 03:59 88 20 142/75 H 92 04/01/18 03:29 36.9 C 86 20 140/83 H 94 04/01/18 03:00 78 20 139/77 H 93 04/01/18 02:50 78 20 140/75 H 92 04/01/18 02:46 79 24 136/70 H 91 L 04/01/18 02:31 81 16 146/79 H 92 04/01/18 02:16 83 16 157/86 H 93 04/01/18 01:48 36.9 C 85 22 188/101 H 95 04/01/18 01:31 16 04/01/18 01:16 76 14 159/90 H 95 04/01/18 00:48 75 16 163/94 H 94 Intake & Output: Intake & Output 03/29/18 03/30/18 03/31/18 04/01/18 23:59 23:59 23:59 23:59 Intake Total 315 Output Total 1070 Balance -755 - Objective General Appearance: positive: No acute distress, Alert Neck: positive: Nml inspection, No JVD Respiratory: positive: Chest non-tender, No respiratory distress, Rales (at bases) Cardiovascular: positive: Regular rate & rhythm, No murmur, No gallop Abdomen: positive: Non-tender, No organomegaly, Nml bowel sounds, Tenderness Back: negative: CVA tenderness (R), CVA tenderness (L) Extremities: positive: Non-tender. negative: Calf tenderness, Wayne's sign/ cords Reflexes: Knee (R): 3+ (1-2 beats of clonus), Knee (L): 3+ (1-2 beats of clonus) - Lab Results Fish Bones: 04/01/18 08:01 04/01/18 08:01 Other Labs: Lab Results x24hrs 04/01/18 04/01/18 04/01/18 Range/Units 08:01 08:01 08:01 WBC (4.8-10.8) x10^3/uL RBC (4.20-5.40) 10^6/uL Hgb (12.0-16.0) g/dL Hct (37.0-47.0) % MCV (81.0-99.0) fL MCH (27.0-31.0) pg MCHC (32.0-36.0) g/dL RDW (12.0-15.0) % Plt Count (130-450) 10^3/uL MPV (7.9-10.8) fL Neut # (Auto) (1.5-6.6) 10^3/uL Lymph # (Auto) (1.5-3.5) 10^3/uL [place] # (Auto) (0.0-1.0) 10^3/uL Eos # (Auto) (0.0-0.7) 10^3/uL Baso # (Auto) (0.0-0.1) 10^3/uL Absolute Nucleated RBC x10^3/uL Nucleated RBC % /100WBC Creatinine 0.6 (0.4-1.0) mg/dL Estimated GFR (MDRD) 111 (>89) Glucose 108 H (70-100) mg/dL Magnesium 5.0 H* (1.7-2.8) mg/dL AST 17 (10-42) IU/L Lactate Dehydrogenase 180 (91-225) IU/L Urine Color Urine Clarity (CLEAR) Urine pH (5.0-7.5) PH Ur Specific [place] (1.002-1.030) Urine Protein (NEGATIVE) mg/dL Urine Glucose (UA) (NEGATIVE) mg/dL Urine Ketones (NEGATIVE) mg/dL Urine Occult Blood (NEGATIVE) Urine Nitrite (NEGATIVE) Urine Bilirubin (NEGATIVE) Urine Urobilinogen (NORMAL) E.U./dL Ur Leukocyte Esterase (NEGATIVE) Urine RBC (0-5) /HPF Urine WBC (0-5) /HPF Ur Squamous Epith Cells (<= Few) Urine Bacteria (None Seen) /HPF Urine Culture Comments Urine Creatinine mg/dL Ur Total Protein Timed mg/dL Protein/Creatinin Ratio 04/01/18 04/01/18 04/01/18 Range/Units 08:01 02:10 02:10 WBC 12.2 H (4.8-10.8) x10^3/uL RBC 4.35 (4.20-5.40) 10^6/uL Hgb 12.7 (12.0-16.0) g/dL Hct 37.7 (37.0-47.0) % MCV 86.7 (81.0-99.0) fL MCH 29.3 (27.0-31.0) pg MCHC 33.8 (32.0-36.0) g/dL RDW 14.4 (12.0-15.0) % Plt Count 243 (130-450) 10^3/uL MPV 8.2 (7.9-10.8) fL Neut # (Auto) 10.1 H (1.5-6.6) 10^3/uL Lymph # (Auto) 1.4 L (1.5-3.5) 10^3/uL [place] # (Auto) 0.5 (0.0-1.0) 10^3/uL Eos # (Auto) 0.2 (0.0-0.7) 10^3/uL Baso # (Auto) 0.1 (0.0-0.1) 10^3/uL Absolute Nucleated RBC 0.00 x10^3/uL Nucleated RBC % 0.0 /100WBC Creatinine (0.4-1.0) mg/dL Estimated GFR (MDRD) (>89) Glucose (70-100) mg/dL Magnesium (1.7-2.8) mg/dL AST (10-42) IU/L Lactate Dehydrogenase (91-225) IU/L Urine Color LT. YELLOW Urine Clarity CLEAR (CLEAR) Urine pH 7.0 (5.0-7.5) PH Ur Specific [place] 1.010 (1.002-1.030) Urine Protein NEGATIVE (NEGATIVE) mg/dL Urine Glucose (UA) NEGATIVE (NEGATIVE) mg/dL Urine Ketones NEGATIVE (NEGATIVE) mg/dL Urine Occult Blood TRACE-LYSE (NEGATIVE) Urine Nitrite NEGATIVE (NEGATIVE) Urine Bilirubin NEGATIVE (NEGATIVE) Urine Urobilinogen 0.2 (NORMAL) (NORMAL) E.U./dL Ur Leukocyte Esterase NEGATIVE (NEGATIVE) Urine RBC 0-5 (0-5) /HPF Urine WBC 0-3 (0-5) /HPF Ur Squamous Epith Cells RARE Squamous (<= Few) Urine Bacteria None Seen (None Seen) /HPF Urine Culture Comments NOT INDICATED Urine Creatinine 21.0 mg/dL Ur Total Protein Timed < 6 mg/dL Protein/Creatinin Ratio Not Reportable - Diagnostic Imaging Diagnostic Imaging Results: positive: Prelim report reviewed (pulmonary edema) Assessment/Plan - Problem List (1) Pre-eclampsia Impression: pt showes signs of hypertension. DTR are increased as well as clonus. this is secondary to falling magnesium levels from her increased urine out put. will increase magnesium to 2 gms per hour Qualifiers: Trimester: unspecified trimester Qualified Code(s): O14.90 - Unspecified pre-eclampsia, unspecified trimester (2) Hypertension Impression: Pt has chronic HTN will rx with lebatol 200 mg bid Qualifiers: Hypertension type: unspecified Qualified Code(s): I10 - Essential (primary ) hypertension (3) Pulmonary edema Impression: JPt has recieved 5 mg of lasix adn had an immediate production of 800+ urine. this has caused a fall in her Magnesium level.
[2018-04-01] MEDS: CELECOXIB 100 MG CAPSULE PO SCH ×2 (09:52→21:14)
--- NOTE | 2018-04-01 10:25 | XRAY Report ---
Reason: Rule out pulmonary edema Procedure Date: 04/01/2018 Accession Number: [id number] / [id number] Procedure: XR - Chest 2 View X-Ray CPT Code: 56133 FULL RESULT: EXAM: CHEST RADIOGRAPHY EXAM DATE: 04/01/2018 09:10 AM. CLINICAL HISTORY: Shortness of breath. One week . Rule out pulmonary edema. COMPARISON: None. TECHNIQUE: 2 views. FINDINGS: Lungs/Pleura: Bilateral coarse interstitial prominence and irregular peribronchial opacities, right greater than left. Mild interlobular septal thickening. Small pleural effusions. No pneumothorax. Mediastinum: Heart and mediastinal contours are unremarkable. No cardiomegaly. Other: Bones are unremarkable. IMPRESSION: 1. Consistent with interstitial pulmonary edema in the appropriate clinical setting. Follow-up recommended. 2. Normal heart size. RADIA
[2018-04-01] MEDS ORDERED: FUROSEMIDE 20 MG/2 ML VIAL IVP ONE (11:15)
[2018-04-01] MEDS: MAGNESIUM SULFATE IN WATER 20 GM/500 ML IV.SOLN IV SCH ×3 (12:52→17:55)
[2018-04-01] MEDS: HYDROcod/ACETAM 5/325 MG TABLET PO PRN ×2 (13:53→21:13)
[2018-04-01] MEDS: LABETALOL 100 MG TABLET PO SCH ×2 (15:01→22:39)
[2018-04-01 15:34] LABS: URIC ACID 7.5 mg/dL (2.6-7.2)
[2018-04-01 15:39] LABS: CALCIUM 6.8 mg/dL (8.5-10.3); CREATININE 0.7 mg/dL (0.4-1.0)
[2018-04-01 15:40] LABS: MAGNESIUM 5.5 mg/dL (1.7-2.8)
[2018-04-01 15:46] LABS: BASOPHILS % (AUTO) 0.3 %; EOSINOPHILS # (AUTO) 0.1 10^3/uL (0.0-0.7); EOSINOPHILS % (AUTO) 1.3 %; HGB - HEMOGLOBIN 12.6 g/dL (12.0-16.0); LYMPHOCYTES # (AUTO) 1.1 10^3/uL (1.5-3.5); LYMPHOCYTES % (AUTO) 9.7 %; MEAN CORPUSCULAR HEMOGLOBIN 29.3 pg (27.0-31.0); MEAN CORPUSCULAR HGB CONC 33.5 g/dL (32.0-36.0); MEAN CORPUSCULAR VOLUME 87.5 fL (81.0-99.0); MEAN PLATELET VOLUME 8.5 fL (7.9-10.8); MONOCYTES # (AUTO) 0.6 10^3/uL (0.0-1.0); MONOCYTES % (AUTO) 5.1 %; NEUTROPHILS # (AUTO) 9.7 10^3/uL (1.5-6.6); NEUTROPHILS % (AUTO) 83.6 %; PLT - PLATELET COUNT 255 10^3/uL (130-450); RED CELL DISTRIBUTION WIDTH 14.5 % (12.0-15.0); WHITE BLOOD COUNT 11.6 x10^3/uL (4.8-10.8)
[2018-04-01 16:03] LABS: CREATININE,URINE 37.8 mg/dL; TOTAL PROTEIN,URINE TIMED < 6 mg/dL
[2018-04-02] MEDS: ZOLPIDEM 5 MG TABLET PO PRN ×2 (00:43→22:23)
[2018-04-02] MEDS: ACETAMINOPHEN 325 MG TABLET PO PRN ×3 (04:40→16:32)
[2018-04-02 06:25] LABS: BASOPHILS % (AUTO) 0.3 %; EOSINOPHILS # (AUTO) 0.2 10^3/uL (0.0-0.7); EOSINOPHILS % (AUTO) 2.1 %; HGB - HEMOGLOBIN 12.6 g/dL (12.0-16.0); LYMPHOCYTES # (AUTO) 1.2 10^3/uL (1.5-3.5); LYMPHOCYTES % (AUTO) 11.6 %; MEAN CORPUSCULAR HEMOGLOBIN 29.2 pg (27.0-31.0); MEAN CORPUSCULAR HGB CONC 33.2 g/dL (32.0-36.0); MEAN CORPUSCULAR VOLUME 87.9 fL (81.0-99.0); MEAN PLATELET VOLUME 7.8 fL (7.9-10.8); MONOCYTES # (AUTO) 0.4 10^3/uL (0.0-1.0); MONOCYTES % (AUTO) 4.1 %; NEUTROPHILS # (AUTO) 8.5 10^3/uL (1.5-6.6); NEUTROPHILS % (AUTO) 81.9 %; PLT - PLATELET COUNT 241 10^3/uL (130-450); RED BLOOD COUNT 4.33 10^6/uL (4.20-5.40); RED CELL DISTRIBUTION WIDTH 14.7 % (12.0-15.0); WHITE BLOOD COUNT 10.4 x10^3/uL (4.8-10.8)
[2018-04-02 06:41] LABS: MAGNESIUM 5.6 mg/dL (1.7-2.8); URIC ACID 6.5 mg/dL (2.6-7.2)
[2018-04-02] MEDS: LABETALOL 100 MG TABLET PO SCH ×2 (06:42→13:48)
[2018-04-02] MEDS: MAGNESIUM SULFATE IN WATER 20 GM/500 ML IV.SOLN IV SCH (06:59)
[2018-04-02] MEDS: SODIUM CHLORIDE FLUSH 0.9% 10 ML SYRINGE IVP SCH ×2 (08:17→21:53)
[2018-04-02] MEDS: CELECOXIB 100 MG CAPSULE PO SCH ×2 (09:11→21:38)
--- NOTE | 2018-04-02 11:30 | PROVIDER PROGRESS NOTE ---
Subjective - Prog Note Date Prog Note Date: 04/02/18 Prog Note Time: 11:28 - Subjective Pt reports feeling: Improved Subjective: Rossana is sitting in bed, alone in the room. Feeling much better. Previous to presenting to the hospital, felt like she was, "drowning," and couldn't breathe , especially attempting to lay flat. Now Rossana can lay flat. Bleeding is mild and she denies significant cramping. Also Rossana denies symptoms of pre- eclampsia. Objective - Vital Signs/Intake & Output Reviewed Vital Signs: Yes Vital Signs: Vital Signs x48h Temp Pulse Resp BP Pulse Ox 04/02/18 08:01 99.0 F 81 16 135/74 H 95 04/02/18 06:35 98.6 F 85 16 143/74 H 95 04/02/18 05:32 82 18 140/78 H 04/02/18 04:30 91 16 138/90 H 95 04/02/18 03:29 20 Intake & Output: Intake & Output 03/30/18 03/31/18 04/01/18 04/02/18 23:59 23:59 23:59 23:59 Intake Total 2297.083 1011.250 Output Total 4360 1525 Balance -2432.917 -033.108 - Objective General Appearance: positive: No acute distress Eyes Bilateral: positive: Normal inspection Respiratory: positive: No respiratory distress, Breath sounds nml, Other (Very subtle left basilar inspiratory crackles) Cardiovascular: positive: Regular rate & rhythm Abdomen: positive: Non-tender (Firm fundus) Back: positive: Nml inspection Skin: positive: Other (Tatoos) Extremities: positive: Non-tender Neurologic/Psychiatric: positive: Oriented x3 - Lab Results Fish Bones: 04/02/18 06:14 04/01/18 15:10 Other Labs: Lab Results x24hrs 04/02/18 04/02/18 04/02/18 Range/Units 06:14 06:14 06:14 WBC (4.8-10.8) x10^3/uL RBC (4.20-5.40) 10^6/uL Hgb (12.0-16.0) g/dL Hct (37.0-47.0) % MCV (81.0-99.0) fL MCH (27.0-31.0) pg MCHC (32.0-36.0) g/dL RDW (12.0-15.0) % Plt Count (130-450) 10^3/uL MPV (7.9-10.8) fL Neut # (Auto) (1.5-6.6) 10^3/uL Lymph # (Auto) (1.5-3.5) 10^3/uL [place] # (Auto) (0.0-1.0) 10^3/uL Eos # (Auto) (0.0-0.7) 10^3/uL Baso # (Auto) (0.0-0.1) 10^3/uL Absolute Nucleated RBC x10^3/uL Nucleated RBC % /100WBC Fibrinogen 445 (220-496) mg/dL Sodium (135-145) mmol/L Potassium (3.5-5.0) mmol/L Chloride (101-111) mmol/L Carbon Dioxide (21-32) mmol/L Anion Gap (6-13) BUN (6-20) mg/dL Creatinine (0.4-1.0) mg/dL Estimated GFR (MDRD) (>89) Glucose (70-100) mg/dL Uric Acid 6.5 (2.6-7.2) mg/dL Calcium (8.5-10.3) mg/dL Magnesium 5.6 H* (1.7-2.8) mg/dL AST 17 (10-42) IU/L Lactate Dehydrogenase (91-225) IU/L B-Natriuretic Peptide 70 (5-100) pg/mL Urine Creatinine mg/dL Ur Total Protein Timed mg/dL Protein/Creatinin Ratio 04/02/18 04/02/18 04/01/18 Range/Units 06:14 06:14 21:06 WBC 10.4 (4.8-10.8) x10^3/uL RBC 4.33 (4.20-5.40) 10^6/uL Hgb 12.6 (12.0-16.0) g/dL Hct 38.0 (37.0-47.0) % MCV 87.9 (81.0-99.0) fL MCH 29.2 (27.0-31.0) pg MCHC 33.2 (32.0-36.0) g/dL RDW 14.7 (12.0-15.0) % Plt Count 241 (130-450) 10^3/uL MPV 7.8 L (7.9-10.8) fL Neut # (Auto) 8.5 H (1.5-6.6) 10^3/uL Lymph # (Auto) 1.2 L (1.5-3.5) 10^3/uL [place] # (Auto) 0.4 (0.0-1.0) 10^3/uL Eos # (Auto) 0.2 (0.0-0.7) 10^3/uL Baso # (Auto) 0.0 (0.0-0.1) 10^3/uL Absolute Nucleated RBC 0.00 x10^3/uL Nucleated RBC % 0.0 /100WBC Fibrinogen (220-496) mg/dL Sodium (135-145) mmol/L Potassium (3.5-5.0) mmol/L Chloride (101-111) mmol/L Carbon Dioxide (21-32) mmol/L Anion Gap (6-13) BUN (6-20) mg/dL Creatinine (0.4-1.0) mg/dL Estimated GFR (MDRD) (>89) Glucose (70-100) mg/dL Uric Acid (2.6-7.2) mg/dL Calcium (8.5-10.3) mg/dL Magnesium 5.9 H* (1.7-2.8) mg/dL AST (10-42) IU/L Lactate Dehydrogenase 193 (91-225) IU/L B-Natriuretic Peptide (5-100) pg/mL Urine Creatinine mg/dL Ur Total Protein Timed mg/dL Protein/Creatinin Ratio 04/01/18 04/01/18 04/01/18 Range/Units 15:15 15:10 15:10 WBC 11.6 H (4.8-10.8) x10^3/uL RBC 4.30 (4.20-5.40) 10^6/uL Hgb 12.6 (12.0-16.0) g/dL Hct 37.6 (37.0-47.0) % MCV 87.5 (81.0-99.0) fL MCH 29.3 (27.0-31.0) pg MCHC 33.5 (32.0-36.0) g/dL RDW 14.5 (12.0-15.0) % Plt Count 255 (130-450) 10^3/uL MPV 8.5 (7.9-10.8) fL Neut # (Auto) 9.7 H (1.5-6.6) 10^3/uL Lymph # (Auto) 1.1 L (1.5-3.5) 10^3/uL [place] # (Auto) 0.6 (0.0-1.0) 10^3/uL Eos # (Auto) 0.1 (0.0-0.7) 10^3/uL Baso # (Auto) 0.0 (0.0-0.1) 10^3/uL Absolute Nucleated RBC 0.00 x10^3/uL Nucleated RBC % 0.0 /100WBC Fibrinogen (220-496) mg/dL Sodium (135-145) mmol/L Potassium (3.5-5.0) mmol/L Chloride (101-111) mmol/L Carbon Dioxide (21-32) mmol/L Anion Gap (6-13) BUN (6-20) mg/dL Creatinine (0.4-1.0) mg/dL Estimated GFR (MDRD) (>89) Glucose (70-100) mg/dL Uric Acid 7.5 H (2.6-7.2) mg/dL Calcium (8.5-10.3) mg/dL Magnesium (1.7-2.8) mg/dL AST 19 (10-42) IU/L Lactate Dehydrogenase (91-225) IU/L B-Natriuretic Peptide (5-100) pg/mL Urine Creatinine 37.8 mg/dL Ur Total Protein Timed < 6 mg/dL Protein/Creatinin Ratio Not Reportable 04/01/18 04/01/18 04/01/18 Range/Units 15:10 15:10 15:10 WBC (4.8-10.8) x10^3/uL RBC (4.20-5.40) 10^6/uL Hgb (12.0-16.0) g/dL Hct (37.0-47.0) % MCV (81.0-99.0) fL MCH (27.0-31.0) pg MCHC (32.0-36.0) g/dL RDW (12.0-15.0) % Plt Count (130-450) 10^3/uL MPV (7.9-10.8) fL Neut # (Auto) (1.5-6.6) 10^3/uL Lymph # (Auto) (1.5-3.5) 10^3/uL [place] # (Auto) (0.0-1.0) 10^3/uL Eos # (Auto) (0.0-0.7) 10^3/uL Baso # (Auto) (0.0-0.1) 10^3/uL Absolute Nucleated RBC x10^3/uL Nucleated RBC % /100WBC Fibrinogen 419 (220-496) mg/dL Sodium 138 (135-145) mmol/L Potassium 3.7 (3.5-5.0) mmol/L Chloride 107 (101-111) mmol/L Carbon Dioxide 23 (21-32) mmol/L Anion Gap 8.0 (6-13) BUN 11 (6-20) mg/dL Creatinine 0.7 (0.4-1.0) mg/dL Estimated GFR (MDRD) 93 (>89) Glucose 116 H (70-100) mg/dL Uric Acid (2.6-7.2) mg/dL Calcium 6.8 L (8.5-10.3) mg/dL Magnesium 5.5 H* (1.7-2.8) mg/dL AST (10-42) IU/L Lactate Dehydrogenase 183 (91-225) IU/L B-Natriuretic Peptide (5-100) pg/mL Urine Creatinine mg/dL Ur Total Protein Timed mg/dL Protein/Creatinin Ratio Assessment/Plan - Problem List (1) Pre-eclampsia superimposed on chronic hypertension, Impression: 37 yo S/p 03/24/2018, PPD #9 Improving chronic HTN with superimposed preeclampsia Almost 24 hours on MgSO4 Clinically improving pulmonary edema BP's improved control Plan to stop MgSO4 at 12:00 as well as xie catheter Continue to closely monitor BP's Repeat chest X-ray Hopefully will plan to discharge to home on labetalol 100 mg 1 tab po TID tomorrow
--- NOTE | 2018-04-02 14:28 | XRAY Report ---
Reason: Pulmonary edema Procedure Date: 04/02/2018 Accession Number: [id number] / [id number] Procedure: XR - Chest 2 View X-Ray CPT Code: 11264 FULL RESULT: EXAM: CHEST RADIOGRAPHY EXAM DATE: 04/02/2018 02:10 PM. CLINICAL HISTORY: Pulmonary edema. COMPARISON: None. TECHNIQUE: 2 views. FINDINGS: Lungs/Pleura: No focal opacities evident. No pleural effusion. No pneumothorax. Normal volumes. Interval decrease in interstitial markings. Mediastinum: Heart and mediastinal contours are unremarkable. Other: None. IMPRESSION: No pulmonary edema. RADIA
[2018-04-02] MEDS ORDERED: LABETALOL 100 MG TABLET PO SCH (22:00)
[2018-04-03] MEDS: LABETALOL 100 MG TABLET PO SCH ×3 (07:56→12:29)
[2018-04-03] MEDS: CELECOXIB 100 MG CAPSULE PO SCH (08:45)
[2018-04-03 09:21] LABS: BASOPHILS % (AUTO) 0.4 %; EOSINOPHILS # (AUTO) 0.2 10^3/uL (0.0-0.7); EOSINOPHILS % (AUTO) 2.3 %; HGB - HEMOGLOBIN 12.7 g/dL (12.0-16.0); LYMPHOCYTES # (AUTO) 1.5 10^3/uL (1.5-3.5); MEAN CORPUSCULAR HEMOGLOBIN 29.4 pg (27.0-31.0); MEAN CORPUSCULAR HGB CONC 33.6 g/dL (32.0-36.0); MEAN CORPUSCULAR VOLUME 87.5 fL (81.0-99.0); MEAN PLATELET VOLUME 8.2 fL (7.9-10.8); MONOCYTES # (AUTO) 0.4 10^3/uL (0.0-1.0); MONOCYTES % (AUTO) 4.4 %; NEUTROPHILS # (AUTO) 6.7 10^3/uL (1.5-6.6); NEUTROPHILS % (AUTO) 75.9 %; PLT - PLATELET COUNT 256 10^3/uL (130-450); RED BLOOD COUNT 4.32 10^6/uL (4.20-5.40); RED CELL DISTRIBUTION WIDTH 14.6 % (12.0-15.0); WHITE BLOOD COUNT 8.8 x10^3/uL (4.8-10.8)
[2018-04-03 09:38] LABS: CALCIUM 8.5 mg/dL (8.5-10.3); CREATININE 0.7 mg/dL (0.4-1.0); URIC ACID 6.5 mg/dL (2.6-7.2)
--- NOTE | 2018-04-03 11:34 | PROVIDER PROGRESS NOTE ---
Subjective - Prog Note Date Prog Note Date: 04/03/18 Prog Note Time: 11:32 - Subjective Pt reports feeling: Improved (Pt stewart HARDEN. No breast pain. Eating well passing flatus.) Objective - Vital Signs/Intake & Output Reviewed Vital Signs: Yes Vital Signs: Vital Signs x48h Temp Pulse Pulse Resp BP Pulse Ox 04/03/18 08:45 137/78 H 04/03/18 08:27 143/70 H 04/03/18 07:40 36.9 C 75 16 169/88 H 04/03/18 06:17 36.8 C 67 16 144/88 H 98 04/03/18 04:50 36.9 C 85 16 155/84 H 96 Intake & Output: Intake & Output 03/31/18 04/01/18 04/02/18 04/03/18 23:59 23:59 23:59 23:59 Intake Total 2297.083 3611.250 Output Total 4360 3750 200 Balance -2062.917 -138.750 -200 - Objective General Appearance: positive: No acute distress, Alert Eyes Bilateral: positive: Normal inspection, PERRL Neck: positive: Nml inspection Respiratory: positive: Chest non-tender, No respiratory distress. negative: Wheezes, Rales Cardiovascular: positive: Regular rate & rhythm, No murmur Abdomen: positive: Non-tender, No organomegaly, Nml bowel sounds, No distention , Mass (U-4) Skin: positive: Color nml, No rash, Warm Extremities: negative: Calf tenderness, Wayne's sign/cords Reflexes: Ankle (R): 2+ (clonus negative), Ankle (L): 2+ (clonus negative) - Lab Results Fish Bones: 04/03/18 09:10 04/03/18 09:10 Other Labs: Lab Results x24hrs 04/03/18 04/03/18 04/03/18 Range/Units 09:10 09:10 09:10 WBC 8.8 (4.8-10.8) x10^3/uL RBC 4.32 (4.20-5.40) 10^6/uL Hgb 12.7 (12.0-16.0) g/dL Hct 37.8 (37.0-47.0) % MCV 87.5 (81.0-99.0) fL MCH 29.4 (27.0-31.0) pg MCHC 33.6 (32.0-36.0) g/dL RDW 14.6 (12.0-15.0) % Plt Count 256 (130-450) 10^3/uL MPV 8.2 (7.9-10.8) fL Neut # (Auto) 6.7 H (1.5-6.6) 10^3/uL Lymph # (Auto) 1.5 (1.5-3.5) 10^3/uL [place] # (Auto) 0.4 (0.0-1.0) 10^3/uL Eos # (Auto) 0.2 (0.0-0.7) 10^3/uL Baso # (Auto) 0.0 (0.0-0.1) 10^3/uL Absolute Nucleated RBC 0.00 x10^3/uL Nucleated RBC % 0.0 /100WBC Sodium 139 (135-145) mmol/L Potassium 4.0 (3.5-5.0) mmol/L Chloride 108 (101-111) mmol/L Carbon Dioxide 22 (21-32) mmol/L Anion Gap 9.0 (6-13) BUN 16 (6-20) mg/dL Creatinine 0.7 (0.4-1.0) mg/dL Estimated GFR (MDRD) 93 (>89) Glucose 100 (70-100) mg/dL Uric Acid 6.5 (2.6-7.2) mg/dL Calcium 8.5 (8.5-10.3) mg/dL AST 20 (10-42) IU/L Lactate Dehydrogenase 217 (91-225) IU/L Assessment/Plan - Problem List (1) Pre-eclampsia Impression: Normal H labs. Uric acid 6.5 Resolving will Discharge to home. Pt to follow up with Dr Smith on saturday. Return if symptoms return. Qualifiers: Trimester: unspecified trimester Qualified Code(s): O14.90 - Unspecified pre-eclampsia, unspecified trimester (2) Hypertension Impression: Pt has Chronic HTN. controled as long as pt takes her lebatol on time. 100 Mg QID. Qualifiers: Hypertension type: unspecified Qualified Code(s): I10 - Essential (primary ) hypertension (3) Pulmonary edema Impression: Resolved.
--- NOTE | 2018-04-03 12:03 | Discharge Plan ---
Discharge Plan Disposition: 01 Home, Self Care Condition: Good Diet: Regular Activity Restrictions: No Restrictions Shower Restrictions: No Driving Restrictions: No No Smoking: If you smoke, Please STOP! Call for help. Follow-up with: JOAN VIZCARRA [Primary Care Provider] -
[2018-04-03 12:55] VITALS: BP 148/85
--- NOTE | 2018-04-03 15:37 | DISCHARGE SUMMARY ---
Physician: Adam Marsh MD DATE OF ADMISSION: 04/01/2018 DATE OF DISCHARGE: 04/03/2018 PRESENTING HISTORY 1. One week status post vaginal delivery. 2. Severe preeclampsia. 3. Chronic hypertension. 4. Headache. DISCHARGE DIAGNOSES 1. One week status post vaginal delivery. 2. Severe preeclampsia. 3. Chronic hypertension. 4. Headache. 5. Pulmonary edema. PROCEDURES 1. CAT scan of the head. 2. Magnesium sulfate IV. PRESENTING HISTORY: The patient is a 37-year-old G2, P2 female who delivered on about 03/24/2018. She presented with headache. She was also noted to have blood pressures of 183/108 and 154/109 on admission. Because of her headache, CAT scan was performed in the ED was noted to be negative. She does have a history of having chronic hypertension as well as headache. She relates that her previous did not have preeclampsia. She states she was induced early because of her hypertension. LABORATORY CBC on admission showed a white count of 10.9, throughout her course, this fell to 8.8 on discharge. Her hemoglobin maintained at 12.7, hematocrit at 38.1. Her platelets ran from 241 to a maximum of 277. Her fibrinogen on 04/01/2018 was 419, on 04/02/2018 was 444. Chemistries: Her magnesium level ranged from 5.0 to a maximum of 5.9. Both of these were in the therapeutic range. Patient's electrolytes stayed normal. Her creatinine stayed constant at 0.7. Her uric acid initially was 7.2, climbed to a zenith of 7.5, and now has fallen to 6.5 on discharge. Her liver functions have all been within normal limits. She has had two protein creatinine ratios performed, both of which were not reportable, as her total protein was less than 6. HOSPITAL COURSE: The patient was admitted. CAT scan was performed to rule out any kind of intracranial processes. She was started on magnesium sulfate 4 gram load, and was initially run at 2 grams/hour. A Manriquez catheter was placed to monitor her urine output. She was noted on chest x-ray to have pulmonary edema. For this reason, she received 5 mg of Lasix, which responded with a very good diuresis. Her lung casillas cleared up, and she had no longer any wheezes. She was placed on labetalol on admission, 200 mg p.o. b.i.d. This was gradually raised to t.i.d. and finally q.6 hours. Her blood pressures responded well to the labetalol, and on discharge, her blood pressure is 137/ 87. She did reach a max of 169/88 while in the hospital. She was admitted with headaches. This resolved and responded to Tylenol. She is being discharged to home today on labetalol 100 mg p.o. q.6 hours. She is to resume her Motrin. She is not to take her Inderal, and she has been instructed so. She also can resume her Zofran. She has been instructed, should she develop headaches, that she should return for evaluation. She is scheduled to see Dr. Smith the following Saturday. She was encouraged strongly to keep that appointment. TD: 04/03/2018 12:14 MTDD
== END 2018-04-03 13:00 | disposition home or self-care (01) | DRG 776 ==
LOC: ED 21:01 → FBP 04-01 00:47
PROVIDERS: ADMIT Obstetrics & Gynecology; ATTEND Obstetrics & Gynecology
DX: O11.5 Pre-existing hypertension with pre-eclampsia, complicating the puerperium (principal); O10.03 Pre-existing essential hypertension complicating the puerperium; O99.53 Diseases of the respiratory system complicating the puerperium; J45.909 Unspecified asthma, uncomplicated
CPT/HCPCS: 36415; 70496; 70498; 71046; 80048; 80053; 81001; 81003; 82565; 82570; 82947; 83036; 83615; 83690; 83735; 83880; 84156; 84450; 84550; 85025; 85384; 87086; 94640; 96374; 96375; 99284

== ENCOUNTER 2019-02-03 13:57 | Emergency (ER) | payer OTHER ==
[2019-02-03 15:47] LABS: BASOPHILS # (AUTO) 0.1 10^3/uL (0.0-0.1); BASOPHILS % (AUTO) 0.5 %; EOSINOPHILS # (AUTO) 0.4 10^3/uL (0.0-0.7); EOSINOPHILS % (AUTO) 4.5 %; HGB - HEMOGLOBIN 14.5 g/dL (12.0-16.0); LYMPHOCYTES # (AUTO) 2.3 10^3/uL (1.5-3.5); LYMPHOCYTES % (AUTO) 23.6 %; MEAN CORPUSCULAR VOLUME 87.8 fL (81.0-99.0); MEAN PLATELET VOLUME 10.5 fL (7.9-10.8); MONOCYTES # (AUTO) 0.4 10^3/uL (0.0-1.0); MONOCYTES % (AUTO) 4.1 %; NEUTROPHILS # (AUTO) 6.5 10^3/uL (1.5-6.6); NEUTROPHILS % (AUTO) 66.8 %; PLT - PLATELET COUNT 316 10^3/uL (130-450); RED CELL DISTRIBUTION WIDTH 12.5 % (12.0-15.0); WHITE BLOOD COUNT 9.8 x10^3/uL (4.8-10.8)
[2019-02-03 15:53] LABS: BILIRUBIN,URINE NEGATIVE (NEGATIVE); GLUCOSE, URINE (UA) NEGATIVE (NEGATIVE); KETONES,URINE (UA) NEGATIVE (NEGATIVE); LEUKOCYTE ESTERASE, URINE NEGATIVE (NEGATIVE); NITRITE,URINE NEGATIVE (NEGATIVE); OCCULT BLOOD,URINE SMALL (NEGATIVE); PH,URINE 6.5 PH (5.0-7.5); PROTEIN,URINE NEGATIVE (NEGATIVE); UROBILINOGEN,URINE 0.2 (NORMAL) E.U./dL (NORMAL)
[2019-02-03 15:55] LABS: CLARITY,URINE HAZY (CLEAR)
[2019-02-03 15:58] LABS: HCG UR QUAL NEGATIVE
[2019-02-03 16:01] LABS: CREATININE 0.7 mg/dL (0.4-1.0); MAGNESIUM 2.1 mg/dL (1.7-2.8); PHOSPHORUS 3.8 mg/dL (2.5-4.6)
--- NOTE | 2019-02-03 16:03 | ED Physician Documentation ---
History of Present Illness - Stated complaint Stated Complaint: EAR PX/BODY NUMBNESS - Chief complaint Chief Complaint: General - History obtained from History obtained from: Patient - History of Present Illness Timing: Today - Additonal information Additional information: Previously well 38-year-old female was driving home from work today when she developed numbness and tingling to her fingertips and ringing in her ears. 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 She is now symptom-free. 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) : None HEENT: None Psych: None Musculoskeletal: None Derm: None - Past Surgical History Past Surgical History: Yes /VISUAL MERCHANDISING ASSISTANT: Dilation and currettage, Breast reduction - Present Medications Home Medications: Ambulatory Orders Medication Instructions Recorded Confirmed Propranolol [Inderal] 10 mg PO BID 09/11/15 06/17/17 Ibuprofen [Motrin] 1 tab PO Q8HR PRN 06/03/16 06/17/17 Diphenoxylate HCl/Atropine 1 each PO Q6H PRN #12 tablet 06/16/17 06/17/17 [Diphenoxylate-Atrop 2.5-0.025] Ondansetron Odt [Zofran] 4 mg TL Q6H PRN #15 tablet 06/16/17 06/17/17 HYDROcod/ACETAM 5/325 [[place] 5/325] 1 - 2 ea PO Q6H PRN #12 tablet 06/18/17 Lorazepam [Ativan] 1 mg PO Q6HR #12 tablet 02/03/19 - Allergies Allergies/Adverse Reactions: Allergies Allergy/AdvReac Type Severity Reaction Status Date / Time amoxicillin Allergy Unknown Verified 03/31/18 21:10 peanut Allergy Unknown Verified 02/03/19 14:30 - Social History Does the pt smoke?: No Smoking Status: Never smoker Does the pt drink ETOH?: Yes Does the pt have substance abuse?: No - Immunizations Immunizations are current?: Yes - POLST Patient has POLST: No PD ED PE NORMAL - Vitals Vital signs reviewed: Yes (hypertensive ) - General General: Alert and oriented X 3, No acute distress, Well developed/nourished, Other (colorfully dressed, made up and tatooed female who appears anxious ) - HEENT HEENT: Atraumatic, PERRL, EOMI - Neck Neck: Supple, no meningeal sign, No bony TTP - Cardiac Cardiac: RRR, No murmur - Respiratory Respiratory: No respiratory distress, Clear bilaterally - Abdomen Abdomen: Soft, Non tender - Back Back: No CVA TTP, No spinal TTP - Derm Derm: Normal color, Warm and dry, No rash - Extremities Extremities: No deformity, No edema - Neuro Neuro: Alert and oriented X 3, 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, No motor deficit, No sensory deficit, Normal speech Eye Opening: Spontaneous Motor: Obeys Commands Verbal: Oriented GCS Score: 15 - Psych Psych: Normal mood, Normal affect Results - Vitals Vitals: Vital Signs - 24 hr 02/03/19 14:26 Temperature 37.1 C Heart Rate 83 Respiratory 20 Rate Blood Pressure 170/83 H O2 Saturation 99 Oxygen O2 Source Room air - Labs Labs: Laboratory Tests 02/03/19 02/03/19 02/03/19 15:40 15:42 15:42 WBC 9.8 RBC 5.00 Hgb 14.5 Hct 43.9 MCV 87.8 MCH 29.0 MCHC 33.0 RDW 12.5 Plt Count 316 MPV 10.5 Neut # (Auto) 6.5 Lymph # (Auto) 2.3 [place] # (Auto) 0.4 Eos # (Auto) 0.4 Baso # (Auto) 0.1 Absolute Nucleated RBC 0.00 Nucleated RBC % 0.0 Sodium 140 Potassium 3.6 Chloride 103 Carbon Dioxide 24 Anion Gap 13.0 BUN 12 Creatinine 0.7 Estimated GFR (MDRD) 93 Glucose 99 Calcium 10.0 Phosphorus 3.8 Magnesium 2.1 Urine Color YELLOW Urine Clarity HAZY Urine pH 6.5 Ur Specific [place] 1.015 Urine Protein NEGATIVE Urine Glucose (UA) NEGATIVE Urine Ketones NEGATIVE Urine Occult Blood SMALL H Urine Nitrite NEGATIVE Urine Bilirubin NEGATIVE Urine Urobilinogen 0.2 (NORMAL) Ur Leukocyte Esterase NEGATIVE Urine RBC 6-10 H Urine WBC 0-3 Ur Squamous Epith Cells MANY Squamous H Urine Bacteria Rare Ur Microscopic Review INDICATED Urine Culture Comments NOT INDICATED Urine HCG, Qual NEGATIVE Procedures - IVC sono (time) 1600 Bedside IVC sono: IVC measures (cm) (1.75), Euvolemia PD MEDICAL DECISION MAKING - ED course Complexity details: considered differential, d/w patient, d/w family ED course: 38-year-old female with acute hyperventilation syndrome is otherwise well on examination and diagnostics. She is taught the technique of rebreathing and we will provide some anti-anxiety. Departure - Departure Disposition: 01 Home, Self Care Clinical Impression: Hyperventilation syndrome, Anxiety Condition: Stable Instructions: ED Stress React, ED Panic Attack, ED Hyperventilation Syndrome Follow-Up: JOAN VIZCARRA [Primary Care Provider] - Prescriptions: Lorazepam [Ativan] 1 mg PO Q6HR #12 tablet
[2019-02-03 16:05] LABS: BACTERIA,URINE Rare /HPF (None Seen); SQUAMOUS EPITHELIAL CELL,UR MANY Squamous (<= Few)
[2019-02-03 16:39] VITALS: BP 138/94
== END 2019-02-03 16:40 | disposition home or self-care (01) ==
LOC: ED 13:57
DX: F45.8 Other somatoform disorders (principal); F41.9 Anxiety disorder, unspecified; I10 Essential (primary) hypertension
CPT/HCPCS: 80048; 81001; 81003; 81025; 83735; 84100; 85025; 87086; 99281; 99283

== ENCOUNTER 2019-04-01 13:02 | Outpatient (CLI) | payer OTHER ==
[2019-04-01 13:48] LABS: BASOPHILS % (AUTO) 0.3 %; EOSINOPHILS # (AUTO) 0.2 10^3/uL (0.0-0.7); EOSINOPHILS % (AUTO) 1.7 %; HGB - HEMOGLOBIN 14.2 g/dL (12.0-16.0); LYMPHOCYTES # (AUTO) 2.5 10^3/uL (1.5-3.5); MEAN CORPUSCULAR HEMOGLOBIN 29.7 pg (27.0-31.0); MEAN CORPUSCULAR HGB CONC 33.9 g/dL (32.0-36.0); MEAN CORPUSCULAR VOLUME 87.7 fL (81.0-99.0); MEAN PLATELET VOLUME 10.8 fL (7.9-10.8); MONOCYTES # (AUTO) 0.5 10^3/uL (0.0-1.0); MONOCYTES % (AUTO) 5.1 %; NEUTROPHILS # (AUTO) 6.4 10^3/uL (1.5-6.6); NEUTROPHILS % (AUTO) 66.3 %; PLT - PLATELET COUNT 278 10^3/uL (130-450); RED BLOOD COUNT 4.78 10^6/uL (4.20-5.40); RED CELL DISTRIBUTION WIDTH 12.8 % (12.0-15.0); WHITE BLOOD COUNT 9.7 x10^3/uL (4.8-10.8)
== END 2019-04-01 13:03 | disposition home or self-care (01) ==
LOC: LAB 13:02
PROVIDERS: ATTEND Obstetrics & Gynecology
DX: Z01.818 Encounter for other preprocedural examination (principal); O02.1 Missed abortion
CPT/HCPCS: 36415; 85025; 86850; 86900; 86901

== ENCOUNTER 2019-04-03 09:29 | Day surgery (SDC) | payer OTHER ==
[2019-04-03] MEDS ORDERED: MIDAZOLAM 2 MG/2 ML VIAL IVP ONE (09:30)
[2019-04-03] MEDS ORDERED: PROPOFOL 200 MG/20 ML VIAL IVP ONE (09:30)
[2019-04-03] MEDS ORDERED: fentaNYL 100 MCG/2 ML VIAL IVP ONE (09:30)
[2019-04-03] MEDS ORDERED: DOXYCYCLINE INJ 100 MG in SODIUM CHLORIDE 0.9% MINIBAG 100 ML IV ONE (09:30)
[2019-04-03] MEDS ORDERED: KETOROLAC 30 MG/ML VIAL IVP ONE (09:30)
[2019-04-03] MEDS ORDERED: KETAMINE 500 MG/10 ML VIAL IVP ONE (09:30)
[2019-04-03] MEDS ORDERED: ONDANSETRON 4 MG/2 ML VIAL IVP ONE (09:30)
[2019-04-03] MEDS ORDERED: LIDOCAINE-MPF 2% 5 ML VIAL IM ONE (09:30)
[2019-04-03] MEDS ORDERED: ACETAMINOPHEN 1,000 MG/100 ML 100 ML IV ONE (09:30)
[2019-04-03] MEDS ORDERED: DEXAMETHASONE 4 MG/ML VIAL IVP ONE (09:30)
[2019-04-03] MEDS ORDERED: LACTATED RINGERS 1,000 ML IV ONE (10:16)
--- NOTE | 2019-04-03 10:39 | ANESTHESIA ---
Pre-Anesthesia VS, & Labs - Diagnosis missed AB - Procedure suction D and C Vital Signs: Temp Pulse Resp BP Pulse Ox 36.2 C L 72 16 125/89 H 97 04/03/19 10:00 04/03/19 10:00 04/03/19 10:00 04/03/19 10:00 04/03/19 10:00 Height 5 ft 2.99 in Weight (kg) 95.3 kg Body Mass Index 35.4 - NPO >8 hours - Is Patient ?: No Home Medications and Allergies Home Medications: Ambulatory Orders Albuterol Sulfate [Proair Respiclick] 90 mcg INH PRN PRN 04/03/19 Propranolol [Inderal] 10 mg PO BID 09/11/15 Ibuprofen [Motrin] 1 tab PO Q8HR PRN 06/03/16 Albuterol Sulfate [Proair Respiclick] 90 mcg INH PRN PRN 04/03/19 Allergies/Adverse Reactions: Allergies Allergy/AdvReac Type Severity Reaction Status Date / Time amoxicillin Allergy Edema Verified 04/01/19 11:06 peanut Allergy Unknown Verified 02/03/19 14:30 Anes History & Medical History - Anesthetic History Anesthesia Complications: reports: No previous complications - Medical History Cardiovascular: reports: Hypertension Pulmonary: reports: None Gastrointestinal: reports: None Urinary: reports: None Neuro: reports: Headaches, Migraines, Motion sickness Musculoskeletal: reports: None Endocrine/Autoimmune: reports: Other Blood Disorders: reports: None Skin: reports: None Smoking Status: Never smoker - Surgical History Gynecologic: Dilation and currettage, Breast reduction Exam General: Alert Mallampati classification: II Thyromental Distance: greater than 6 cm Respiratory: Lungs clear Cardiovascular: Regular rate Mental/Cognitive Status: Alert/Oriented X3 Plan Anesthesia Type: General Consent for Procedure(s) Verified and Reviewed: Yes Code Status: Attempt Resuscitation ASA classification: 2-Mild systemic disease Is this case an emergency?: No
[2019-04-03] MEDS ORDERED: SILVER NITRATE APPLICATOR TOP ONE (11:07)
[2019-04-03] MEDS ORDERED: LIDOCAINE MPF 1%-EPI 1:200000 30 ML VIAL ONE (11:08)
[2019-04-03] MEDS ORDERED: oxyCODONE 5 MG TABLET PO PRN (11:47)
[2019-04-03] MEDS ORDERED: ONDANSETRON 4 MG/2 ML VIAL IVP PRN (11:47)
[2019-04-03] MEDS ORDERED: HYDROmorphone 0.5 MG/0.5 ML SYRINGE IVP PRN (11:47)
--- NOTE | 2019-04-03 11:55 | IMMEDIATE POSTOPERATIVE NOTE ---
Immediate Postoperative Note - Procedure Note Procedure Date: 04/03/19 Pre-Op Diagnosis: missed measuring 7+4 wga Procedure: dilation and curettage Post-Op Diagnosis: completed Primary Surgeon: Dayanna Villeda Aeronautical Products Sales Engineer: none Anesthesia Type: General LMA Findings: Normal external female genitalia, small anteverted uterus, mobile. Mild uterovaginal prolapse ([place] Stage I). Moderate tissue returned. No complications. Complications: No complications Estimated Blood Loss (in cc): 50 Specimens and Cultures: 1. Products of conception collected in formalin for pathology 2. Small portion of POC collected fresh for chromosome analysis Plan of Care: Discharge home from PACU when stable
[2019-04-03] MEDS ORDERED: LACTATED RINGERS 1,000 ML IV SCH (12:00)
--- NOTE | 2019-04-03 12:01 | DISCHARGE SUMMARY ---
"Discharge Summary Admit Date: 04/03/19 Discharge Date: 04/03/19 Discharging Provider: Dr. Dayanna Villeda Code Status: Attempt Resuscitation Condition at Discharge: Good Discharge Disposition: 01 Home, Self Care - DIAGNOSES Admission Diagnoses: missed Discharge Diagnoses with Status of Each Condition: same as above - HPI History of Present Illness: Patient was admitted for planned dilation and curettage. Underwent uncomplicated procedure. At the time of discharge, her pain was well controlled and she was tolerating oral intake. She was discharged home with close interval followup. - CONSULTS | PROCEDURES Procedures: dilation and curettage - HOSPITAL COURSE Hospital Course: Uncomplicated - ALLERGIES Allergies/Adverse Reactions: Allergies Allergy/AdvReac Type Severity Reaction Status Date / Time amoxicillin Allergy Edema Verified 04/01/19 11:06 peanut Allergy Unknown Verified 02/03/19 14:30 - MEDICATIONS Home Medications: Ambulatory Orders Medication Instructions Recorded Confirmed Propranolol [Inderal] 10 mg PO BID 09/11/15 04/03/19 Ibuprofen [Motrin] 1 tab PO Q8HR PRN 06/03/16 04/03/19 Albuterol Sulfate [Proair 90 mcg INH PRN PRN 04/03/19 04/03/19 Respiclick] - PHYSICAL EXAM AT DISCHARGE General Appearance: positive: No acute distress - FOLLOW UP Follow Up: with Dr. Villeda as scheduled - TIME SPENT Time Spent in Discharge (Minutes): 30"
--- NOTE | 2019-04-03 12:18 | OPERATIVE REPORT ---
Operative Report - General Procedure Date: 04/03/19 Planned Procedure: dilation and curettage Pre-Op Diagnosis: missed at 7+4 wga Procedure Performed: dilation and curettage Post Op Diagnosis: same as above, completed - Procedure Note Primary Surgeon: Dayanna Villeda Anesthesia Provider: OSMAR Johnson Anesthesia Technique: General LMA Pathology: products of conception IV Fluids (mL): 350 Estimated Blood Loss (mL): 50 Urine Output (mL): 100 Indications: missed Findings: Normal external female genitalia. Small anteverted uterus. Mild uterovaginal prolapse. Moderate tissue returned with suction. No complications appreciated. Complications: None - Other Other Information/Narrative: Procedure: After informed consent was assured, the patient was taken to the operating room where anesthesia was induced. Pt was placed in high dorsal lithotomy with yellow fin stirrups. An exam under anesthesia was performed which revealed an 7 week size anteverted uterus. The patient was prepped and draped in the usual sterile fashion. Suction was set-up and tested. A surgical timeout was performed. A speculum was inserted into the vagina, and a tenaculum was placed on the anterior lip of the cervix. Hegar dilators were used to dilate the cervical os to size 18 [place]. A 7 mm rigid suction catheter was inserted through the cervix to the fundus, and suction was applied. Moderate POC tissue was returned. A sharp currette was then inserted to the fundus and gently withdrawn along all surfaces of the uterus, achieving good uterine cri and returning a small amount of tissue. This tissue was collected fresh to send for chromosome analysis. A final pass was then made with the suction to remove any loosened tissue. The tenaculum was removed from the cervix with good hemostasis observed. All instruments were removed from the vagina, and a repeat bimanual exam revealed a small firm uterus and no instruments in the vaginal vault. The pt was taken to PACU in stable condition.
[2019-04-03] MEDS ORDERED: oxyCODONE 5 MG TABLET ONE (12:37)
[2019-04-03 12:42] VITALS: BP 137/95
== END 2019-04-03 09:30 | disposition home or self-care (01) ==
LOC: SDS 09:29
PROVIDERS: ATTEND Obstetrics & Gynecology
PROC: 10D17ZZ Extraction of Products of Conception, Retained, Via Natural or Artificial Opening (ICD-10-PCS; principal; 2019-04-03 11:00)
DX: O02.1 Missed abortion (principal); I10 Essential (primary) hypertension
CPT/HCPCS: 59820; A9270; J0131; J7120

== ENCOUNTER 2019-05-29 03:28 | Emergency (ER) | payer OTHER ==
[2019-05-29 03:59] LABS: BILIRUBIN,URINE NEGATIVE (NEGATIVE); GLUCOSE, URINE (UA) NEGATIVE (NEGATIVE); KETONES,URINE (UA) NEGATIVE (NEGATIVE); LEUKOCYTE ESTERASE, URINE NEGATIVE (NEGATIVE); NITRITE,URINE NEGATIVE (NEGATIVE); OCCULT BLOOD,URINE SMALL (NEGATIVE); PROTEIN,URINE NEGATIVE (NEGATIVE); UROBILINOGEN,URINE 0.2 (NORMAL) E.U./dL (NORMAL)
[2019-05-29 04:02] LABS: CLARITY,URINE CLEAR (CLEAR); HCG UR QUAL NEGATIVE
[2019-05-29 04:05] LABS: BACTERIA,URINE Rare /HPF (None Seen); SQUAMOUS EPITHELIAL CELL,UR FEW Squamous (<= Few)
[2019-05-29] MEDS ORDERED: KETOROLAC 30 MG/ML VIAL IVP STA (04:09)
[2019-05-29] MEDS ORDERED: ONDANSETRON 4 MG/2 ML VIAL IVP STA (04:09)
[2019-05-29] MEDS ORDERED: SODIUM CHLORIDE 0.9% 1,000 ML IV ONE (04:09)
--- NOTE | 2019-05-29 04:10 | ED Physician Documentation ---
PD HPI ABD PAIN - Stated complaint Stated Complaint: ABD PX - Chief complaint Chief Complaint: Abd Pain - History obtained from History obtained from: Patient, Family - History of Present Illness Timing - onset: Enter time (2144), Last night Timing - duration: Hours Timing - details: Gradual onset, Still present Quality: Sharp, Pain Location: RUQ, Epigastric Radiation: Upper back Improved by: Laying still Worsened by: Breathing, Position, Palpation Associated symptoms: Nausea. No: Vomiting, Diarrhea, Constipation Similar symptoms before: No diagnosis Recently seen: Not recently seen - Additional information Additional information: Previously well 38-year-old female has had the [employer] for dinner tonight and at about 945 she began to develop some epigastric abdominal pain that is become severe and is persisted through the night. She is come to the emergency department this morning with persistence of severe pain unable to sleep. She has had similar episodes several times previously never lasting this long. She does have one prior episode related to taking ibuprofen and she does not take ibuprofen. Review of Systems Constitutional: denies: Fever Eyes: denies: Decreased vision Ears: denies: Ear pain Nose: denies: Congestion Throat: denies: Sore throat Cardiac: denies: Chest pain / pressure, Palpitations Respiratory: denies: Dyspnea, Cough GI: reports: Abdominal Pain, Nausea. 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: Dilation and currettage, Breast reduction - Present Medications Home Medications: Ambulatory Orders Medication Instructions Recorded Confirmed Propranolol [Inderal] 10 mg PO BID 09/11/15 04/03/19 Ibuprofen [Motrin] 1 tab PO Q8HR PRN 06/03/16 04/03/19 Albuterol Sulfate [Proair 90 mcg INH PRN PRN 04/03/19 04/03/19 Respiclick] - Allergies Allergies/Adverse Reactions: Allergies Allergy/AdvReac Type Severity Reaction Status Date / Time amoxicillin Allergy Edema Verified 04/01/19 11:06 - Social History Does the pt smoke?: No Smoking Status: Never smoker Does the pt drink ETOH?: Yes Does the pt have substance abuse?: No - Immunizations Immunizations are current?: Yes - POLST Patient has POLST: No PD ED PE NORMAL - Vitals Vital signs reviewed: Yes (hypertensive ) - General General: Alert and oriented X 3, Well developed/nourished, Other (Patient 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 and 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 affect) - HEENT HEENT: Atraumatic, PERRL, EOMI - Neck Neck: Supple, no meningeal sign - Cardiac Cardiac: RRR, No murmur - Respiratory Respiratory: No respiratory distress, Clear bilaterally - Abdomen Abdomen: Soft, Other (RUQ tenderness and epigastric tenderness ) - Back Back: No CVA TTP, No spinal TTP - Derm Derm: Normal color, Warm and dry, No rash - Extremities Extremities: No deformity, No edema - Neuro Neuro: Alert and oriented X 3, 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, No motor deficit, No sensory deficit, Normal speech Eye Opening: Spontaneous Motor: Obeys Commands Verbal: Oriented GCS Score: 15 - Psych Psych: Normal mood Results - Vitals Vitals: Vital Signs - 24 hr 05/29/19 05/29/19 05/29/19 03:36 04:25 04:40 Temperature 36.5 C Heart Rate 77 71 72 Respiratory 17 17 17 Rate Blood Pressure 163/106 H 163/99 H 149/86 H O2 Saturation 98 99 100 Oxygen O2 Source Room air - Labs Labs: Laboratory Tests 05/29/19 05/29/19 05/29/19 03:50 03:50 03:55 WBC 13.4 H RBC 5.00 Hgb 14.3 Hct 43.7 MCV 87.4 MCH 28.6 MCHC 32.7 RDW 12.7 Plt Count 337 MPV 10.8 Neut # (Auto) 9.7 H Lymph # (Auto) 2.6 [place] # (Auto) 0.7 Eos # (Auto) 0.2 Baso # (Auto) 0.1 Absolute Nucleated RBC 0.00 Nucleated RBC % 0.0 Sodium 138 Potassium 4.4 Chloride 104 Carbon Dioxide 23 Anion Gap 11.0 BUN 14 Creatinine 0.8 Estimated GFR (MDRD) 79 L Glucose 142 H Calcium 10.4 H Total Bilirubin 0.8 AST 24 ALT 37 Alkaline Phosphatase 60 Total Protein 8.1 Albumin 4.6 Globulin 3.5 Albumin/Globulin Ratio 1.3 Lipase 41 Urine Color YELLOW Urine Clarity CLEAR Urine pH 6.0 Ur Specific [place] 1.015 Urine Protein NEGATIVE Urine Glucose (UA) NEGATIVE Urine Ketones NEGATIVE Urine Occult Blood SMALL H Urine Nitrite NEGATIVE Urine Bilirubin NEGATIVE Urine Urobilinogen 0.2 (NORMAL) Ur Leukocyte Esterase NEGATIVE Urine RBC 6-10 H Urine WBC 0-3 Ur Squamous Epith Cells FEW Squamous Urine Bacteria Rare Ur Microscopic Review INDICATED Urine Culture Comments NOT INDICATED Urine HCG, Qual NEGATIVE - Rads (name of study) abd u/s Radiology: Prelim report reviewed (Impression: Cholelithiasis. No biliary obstruction. Fatty infiltration of liver.), EMP read indepedently, See rad report Procedures - Bedside sono Bedside sono by EMP: With use of bedside ultrasound the right upper quadrant is imaged gallbladder does have stones present. PD MEDICAL DECISION MAKING - ED course Complexity details: reviewed results, re-evaluated patient, considered differential, d/w patient, d/w family ED course: 38-year-old female with acute right upper quadrant abdominal pain has gallstones in her gallbladder and she has improvement in her pain with use of some Toradol intravenously. She will follow-up with the surgeon and she will be on a low-fat diet until she is able to get her gallbladder out. Departure - Departure Disposition: 01 Home, Self Care Clinical Impression: Cholelithiasis Qualifiers: Cholelithiasis location: gallbladder Cholecystitis presence: without cholecystitis Biliary obstruction: with biliary obstruction Qualified Code(s): K80.21 - Calculus of gallbladder without cholecystitis with obstruction Condition: Stable Instructions: ED Gallstone W Biliary Colic Follow-Up: Eva Hudson MD [Provider Admit Priv/Credential] - Forms: Activity restrictions
[2019-05-29 04:15] LABS: BASOPHILS # (AUTO) 0.1 10^3/uL (0.0-0.1); BASOPHILS % (AUTO) 0.4 %; EOSINOPHILS # (AUTO) 0.2 10^3/uL (0.0-0.7); EOSINOPHILS % (AUTO) 1.6 %; HGB - HEMOGLOBIN 14.3 g/dL (12.0-16.0); LYMPHOCYTES # (AUTO) 2.6 10^3/uL (1.5-3.5); LYMPHOCYTES % (AUTO) 19.6 %; MEAN CORPUSCULAR HEMOGLOBIN 28.6 pg (27.0-31.0); MEAN CORPUSCULAR HGB CONC 32.7 g/dL (32.0-36.0); MEAN CORPUSCULAR VOLUME 87.4 fL (81.0-99.0); MEAN PLATELET VOLUME 10.8 fL (7.9-10.8); MONOCYTES # (AUTO) 0.7 10^3/uL (0.0-1.0); MONOCYTES % (AUTO) 4.9 %; NEUTROPHILS # (AUTO) 9.7 10^3/uL (1.5-6.6); PLT - PLATELET COUNT 337 10^3/uL (130-450); RED CELL DISTRIBUTION WIDTH 12.7 % (12.0-15.0); WHITE BLOOD COUNT 13.4 x10^3/uL (4.8-10.8)
[2019-05-29 04:25] LABS: ALBUMIN 4.6 g/dL (3.2-5.5); ALBUMIN/GLOBULIN RATIO 1.3 (1.0-2.2); BILIRUBIN,TOTAL 0.8 mg/dL (0.2-1.0); CALCIUM 10.4 mg/dL (8.5-10.3); CREATININE 0.8 mg/dL (0.4-1.0); TOTAL PROTEIN 8.1 g/dL (6.7-8.2)
--- NOTE | 2019-05-29 05:30 | Ultrasound Report ---
Reason: RUQ pain Procedure Date: 05/29/2019 Accession Number: [id number] / [id number] Procedure: US - Abdomen Limited CPT Code: FULL RESULT: EXAM: ABDOMEN ULTRASOUND LIMITED, RUQ EXAM DATE: 05/29/2019 05:16 AM. CLINICAL HISTORY: RUQ pain. COMPARISON: None. TECHNIQUE: Real-time scanning was performed with static images obtained. FINDINGS: Liver: The liver is echogenic, compatible with fatty infiltration. A small focus of sparing is noted anterior to the lesly hepatis. The liver measures 12 cm. Main portal vein flow: Hepatopetal. Gallbladder: Cholelithiasis, with a calculus lodged in the gallbladder neck. No wall thickening or pericholecystic fluid. Biliary System: CBD measures 3 mm. No intrahepatic or extrahepatic ductal dilatation. Other: None. IMPRESSION: Cholelithiasis. No biliary obstruction. Fatty infiltration of the liver. RADIA
[2019-05-29] MEDS ORDERED: HYDROmorphone 1 MG/ML CARPUJECT IVP STA (05:48)
[2019-05-29 06:15] VITALS: BP 143/97
== END 2019-05-29 06:47 | disposition home or self-care (01) ==
LOC: ED 03:28
DX: K80.21 Calculus of gallbladder without cholecystitis with obstruction (principal); I10 Essential (primary) hypertension; Z79.899 Other long term (current) drug therapy
CPT/HCPCS: 36415; 76705; 80053; 81001; 81025; 83690; 85025; 96361; 96374; 96375; 99283; 99284; J1170; 81003; 87086

== ENCOUNTER 2019-09-12 19:42 | Emergency (ER) | payer OTHER ==
--- NOTE | 2019-09-12 20:08 | ED Physician Documentation ---
History of Present Illness - Stated complaint Stated Complaint: N/V/D - Chief complaint Chief Complaint: Abd Pain - Additonal information Additional information: This is a 39-year-old female with a history of an elective cholecystectomy with Dr. Moss on 09/01/2019, who presents with diffuse abdominal pain, vomiting and diarrhea. Pt states that her discomfort after surgery has been steadily improving until today. She developed abdominal pain that is somewhat diffuse but worse in the epigastrium and is moderate to severe and associated with several episodes of non-bloody diarrhea and non bloody, non-bilious emesis. No fever or dysuria. No obvious sick contacts. 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) : None HEENT: None, Chronic vision loss Psych: None Musculoskeletal: None Derm: None - Past Surgical History Past Surgical History: Yes /SENIOR SERVICE AIDE: Dilation and currettage, Breast reduction - Present Medications Home Medications: Ambulatory Orders Medication Instructions Recorded Confirmed Propranolol [Inderal] 10 mg PO BID 09/11/15 04/03/19 Ibuprofen [Motrin] 1 tab PO Q8HR PRN 06/03/16 04/03/19 Albuterol Sulfate [Proair 90 mcg INH PRN PRN 04/03/19 04/03/19 Respiclick] Nitrofurantoin [Macrobid] 100 mg PO BID #10 capsule 09/12/19 Ondansetron Odt [Zofran] 4 mg TL Q6H PRN #10 tablet 09/12/19 - Allergies Allergies/Adverse Reactions: Allergies Allergy/AdvReac Type Severity Reaction Status Date / Time amoxicillin Allergy Edema Verified 09/12/19 19:54 - Social History Does the pt smoke?: No Smoking Status: Never smoker Does the pt drink ETOH?: Yes Does the pt have substance abuse?: No - Immunizations Immunizations are current?: Yes - POLST Patient has POLST: No PD ED PE NORMAL - Vitals Vital signs reviewed: Yes - General General: Alert and oriented X 3 - HEENT HEENT: Atraumatic, PERRL - Neck Neck: Supple, no meningeal sign - Cardiac Cardiac: Other (Mild tachycardia, rate 100 on my exam, No mumurs) - Respiratory Respiratory: Clear bilaterally - Abdomen Abdomen: Other (Bowel sounds present., abdomen non-distended. Incision sites with steri-strips in place. No redness, no drainage, no tenderness over incisions. Tenderness in the epigastrium and left upper quadrant. To a lesser extent mild tenderness in the RLQ. ) - Derm Derm: Warm and dry - Extremities Extremities: No deformity - Neuro Neuro: Alert and oriented X 3 - Psych Psych: Normal mood, Normal affect Results - Vitals Vitals: Vital Signs - 24 hr 09/12/19 09/12/19 09/12/19 19:52 22:00 22:58 Temperature 37.4 C 37.1 C Heart Rate 107 H 91 88 Respiratory 18 16 16 Rate Blood Pressure 130/100 H 138/87 H 137/81 H O2 Saturation 98 97 99 Oxygen O2 Source Room air - Labs Labs: Microbiology 09/12/19 21:00 Urine Culture - Preliminary Urine,Clean Catch CULTURE IN PROGRESS. RESULTS TO FOLLOW. Laboratory Tests 09/12/19 09/12/19 09/12/19 20:11 20:11 21:00 WBC 19.6 H RBC 5.06 Hgb 14.8 Hct 44.3 MCV 87.5 MCH 29.2 MCHC 33.4 RDW 12.3 Plt Count 340 MPV 10.9 H Neut # (Auto) 15.4 H Lymph # (Auto) 2.8 Boyle # (Auto) 0.8 Eos # (Auto) 0.5 Baso # (Auto) 0.1 Absolute Nucleated RBC 0.00 Nucleated RBC % 0.0 Sodium 137 Potassium 4.0 Chloride 104 Carbon Dioxide 21 Anion Gap 12.0 BUN 12 Creatinine 0.7 Estimated GFR (MDRD) 92 Glucose 101 H Calcium 9.5 Total Bilirubin 0.5 AST 21 ALT 42 Alkaline Phosphatase 70 Total Protein 8.2 Albumin 4.5 Globulin 3.7 Albumin/Globulin Ratio 1.2 Lipase 35 Urine Color YELLOW Urine Clarity HAZY Urine pH 5.5 Ur Specific Sedley 1.015 Urine Protein NEGATIVE Urine Glucose (UA) NEGATIVE Urine Ketones NEGATIVE Urine Occult Blood SMALL H Urine Nitrite NEGATIVE Urine Bilirubin NEGATIVE Urine Urobilinogen 0.2 (NORMAL) Ur Leukocyte Esterase SMALL H Urine RBC 0-5 Urine WBC 6-10 H Ur Squamous Epith Cells FEW Squamous Urine Bacteria Few Ur Microscopic Review INDICATED Urine Culture Comments INDICATED - Rads (name of study) CT abd/pelvis W Radiology: Other (No acute intraabdominal or pelvic abnormality. Steatosis, and incidental sanju duct cyst..) PD MEDICAL DECISION MAKING - ED course Complexity details: considered differential (Intraabdominal abcess, choledocolithiasis, pancreatitis, bowel obstruction, PUD, gastroenteritis, internal hernia) ED course: Pt is non toxic on exam, tachycardic. IV inserted and pt given morphine, zofran, IV fluid. Labs are notable for a leukocytosis of 19, CMP unremarkable. UA suggests infection with 6-[address] abd/pelvis shows no acute findings to explain pt's pain. Incidental findings reviewed with patient. Given her vomiting and diarrhea, it is possible that this is gastroenteritis. I discussed with her however that given her high WBC count, if she is feeling worse or not having significant improving she needs to be re-examined within 24 hours. She is now feeling well and has a benign abdomen on repeat exam and VS are unremarkable, her tachycardia has resolved. Lower abdomen is non tender, pelvic pathology highly unlikely. She may have a UTI, though she does not have dysuria and I do not think this would explain her epigastric discomfort. No CVA tenderness to suggest pyelonephritis. We will treat with macrobid. Given she is feeling well she feels comfortable discharging home, strict return precautions and follow up instructions reviewed. Departure - Departure Disposition: 01 Home, Self Care Clinical Impression: Vomiting Qualifiers: Vomiting type: unspecified Vomiting Intractability: non-intractable Nausea presence: with nausea Qualified Code(s): R11.2 - Nausea with vomiting, unspecified Condition: Good Follow-Up: SOPHIA GUERRERO MD [Primary Care Provider] - Prescriptions: Nitrofurantoin [Macrobid] 100 mg PO BID #10 capsule Ondansetron Odt [Zofran] 4 mg TL Q6H PRN #10 tablet PRN Reason: Nausea / Vomiting Comments: Your labs show that your white blood cell count is high (19), however your other labs were reassuring and your CT scan of your abdomen and pelvis did not show an obvious cause of your symptoms. You may have a mild urinary tract infection, but I do not think this is the primary cause of your symptoms. Regardless, please take the antibiotic prescribed. If you Are having worsening or not improving symptoms, please return for recheck tomorrow. Even if you are feeling better please follow-up with your primary care provider and your surgeon as discussed. Please review the results of your CT scan with your providers as well, as there were several incidental findings. Discharge Date/Time: 09/12/19 23:00
[2019-09-12 20:21] LABS: BASOPHILS # (AUTO) 0.1 10^3/uL (0.0-0.1); BASOPHILS % (AUTO) 0.3 %; EOSINOPHILS # (AUTO) 0.5 10^3/uL (0.0-0.7); EOSINOPHILS % (AUTO) 2.4 %; HGB - HEMOGLOBIN 14.8 g/dL (12.0-16.0); LYMPHOCYTES # (AUTO) 2.8 10^3/uL (1.5-3.5); MEAN CORPUSCULAR HEMOGLOBIN 29.2 pg (27.0-31.0); MEAN CORPUSCULAR HGB CONC 33.4 g/dL (32.0-36.0); MEAN CORPUSCULAR VOLUME 87.5 fL (81.0-99.0); MEAN PLATELET VOLUME 10.9 fL (7.9-10.8); MONOCYTES # (AUTO) 0.8 10^3/uL (0.0-1.0); MONOCYTES % (AUTO) 3.9 %; NEUTROPHILS # (AUTO) 15.4 10^3/uL (1.5-6.6); NEUTROPHILS % (AUTO) 78.7 %; PLT - PLATELET COUNT 340 10^3/uL (130-450); RED BLOOD COUNT 5.06 10^6/uL (4.20-5.40); RED CELL DISTRIBUTION WIDTH 12.3 % (12.0-15.0); WHITE BLOOD COUNT 19.6 x10^3/uL (4.8-10.8)
[2019-09-12 20:34] LABS: ALBUMIN 4.5 g/dL (3.2-5.5); ALBUMIN/GLOBULIN RATIO 1.2 (1.0-2.2); BILIRUBIN,TOTAL 0.5 mg/dL (0.2-1.0); CALCIUM 9.5 mg/dL (8.5-10.3); CREATININE 0.7 mg/dL (0.4-1.0); TOTAL PROTEIN 8.2 g/dL (6.7-8.2)
[2019-09-12] MEDS ORDERED: IOVERSOL 320 100 ML VIAL IVP ONE ×2 (20:34→21:05)
[2019-09-12] MEDS ORDERED: ONDANSETRON 4 MG/2 ML VIAL IVP STA ×2 (20:46→22:44)
[2019-09-12] MEDS ORDERED: MORPHINE 10 MG/ML VIAL IVP STA (20:47)
[2019-09-12 21:16] LABS: BILIRUBIN,URINE NEGATIVE (NEGATIVE); GLUCOSE, URINE (UA) NEGATIVE (NEGATIVE); KETONES,URINE (UA) NEGATIVE (NEGATIVE); LEUKOCYTE ESTERASE, URINE SMALL (NEGATIVE); NITRITE,URINE NEGATIVE (NEGATIVE); OCCULT BLOOD,URINE SMALL (NEGATIVE); PH,URINE 5.5 PH (5.0-7.5); PROTEIN,URINE NEGATIVE (NEGATIVE); UROBILINOGEN,URINE 0.2 (NORMAL) E.U./dL (NORMAL)
[2019-09-12 21:17] LABS: CLARITY,URINE HAZY (CLEAR)
[2019-09-12 21:24] LABS: BACTERIA,URINE Few /HPF (None Seen); RBC,URINE 0-5 /HPF (0-5); SQUAMOUS EPITHELIAL CELL,UR FEW Squamous (<= Few)
--- NOTE | 2019-09-12 21:25 | CT Report ---
Reason: Abdominal pain, acute, nonlocalized, S/p chole1 Procedure Date: 09/12/2019 Accession Number: [id number] / [id number] Procedure: CT - Abdomen/Pelvis W CPT Code: Final Report FULL RESULT: EXAM: CT ABDOMEN AND PELVIS EXAM DATE: 09/12/2019 09:03 PM. CLINICAL HISTORY: Abdominal pain, acute, nonlocalized, S/p cholecystectomy 09/01. COMPARISONS: ABDOMEN/PELVIS W/ 06/17/2017 11:06 PM ABDOMEN LIMITED 05/29/2019 4:24 AM. TECHNIQUE: Routine helical CT imaging was performed through the abdomen and pelvis. IV contrast: 100 cc Optiray 320. Enteric contrast: No. Reconstructions: Coronal and sagittal. In accordance with CT protocol optimization, one or more of the following dose reduction techniques were utilized for this exam: automated exposure control, adjustment of mA and/or KV based on patient size, or use of iterative reconstructive technique. FINDINGS: Lung Bases: Unremarkable. Liver: There is diffuse low attenuation of the liver, as seen on prior exams. No masses. Gallbladder/Bile Ducts: The gallbladder is surgically absent. No fluid collection in the gallbladder fossa. No biliary dilatation. Spleen: Normal. Pancreas: Normal. Adrenal Glands: Normal. Kidneys: Normal. No masses or hydronephrosis. Peritoneal Cavity/Bowel: Normal. No free fluid, free air or adenopathy. No masses or acute inflammatory process. No dilated loops of bowel or abnormal colonic stool burden. The appendix is well visualized and normal. Pelvic Organs: The bladder and uterus are within normal limits. No adnexal mass identified. There is an ovoid cystic lesion along the expected course of the urethra, inferior to the cervix and anterior to the expected location of the vaginal canal. This measures approximately 2.3 x 1.7 x 1.9 cm (series 3 image 85, and series 6 image 43). Previously on 06/17/2017, this measured 2.0 x 1.4 x 1.7 cm. Vasculature: No aneurysms or other significant abnormality. Bones: No significant abnormality. Other: There is mild fat stranding adjacent to the umbilicus, presumably related to recent surgery. No fluid collection identified. IMPRESSION: 1. Status post cholecystectomy. No fluid collection at the gallbladder fossa. No biliary dilatation. 2. No acute intra-abdominal or pelvic abnormality identified. 3. Diffuse hepatic steatosis, as seen on prior exams. 4. Incidentally noted cystic lesion along the expected course of the urethra, most likely a Dania duct cyst. This appears minimally increased in size compared to the prior CT on 06/17/2017. RADIA
[2019-09-12] MEDS ORDERED: NITROFURANTOIN MACRO 100 MG CAPSULE PO STA (22:44)
[2019-09-12] MEDS ORDERED: ONDANSETRON ODT 4 MG Prepack 2 TL PRN (22:50)
[2019-09-12 22:59] VITALS: BP 137/81
== END 2019-09-12 23:00 | disposition home or self-care (01) ==
LOC: ED 19:42
DX: R11.2 Nausea with vomiting, unspecified (principal); D72.829 Elevated white blood cell count, unspecified; I10 Essential (primary) hypertension
CPT/HCPCS: 36415; 74177; 80053; 81001; 83690; 85025; 87086; 96374; 96375; 99284; A9270; Q9967; 81003

== ENCOUNTER 2020-02-03 06:19 | Day surgery (SDC) | payer OTHER ==
[2020-02-03] MEDS ORDERED: ONDANSETRON 4 MG/2 ML VIAL IVP ONE (06:20)
[2020-02-03] MEDS ORDERED: PROPOFOL 200 MG/20 ML VIAL IVP ONE (06:20)
[2020-02-03] MEDS ORDERED: DEXAMETHASONE 4 MG/ML VIAL IVP ONE (06:20)
[2020-02-03] MEDS ORDERED: MIDAZOLAM 2 MG/2 ML VIAL IVP ONE (06:20)
[2020-02-03] MEDS ORDERED: LIDOCAINE-MPF 2% 5 ML VIAL IM ONE (06:20)
[2020-02-03] MEDS ORDERED: fentaNYL 100 MCG/2 ML VIAL IVP ONE (06:20)
[2020-02-03] MEDS ORDERED: LACTATED RINGERS 1,000 ML IV ONE ×2 (06:54→07:07)
[2020-02-03] MEDS ORDERED: SILVER NITRATE APPLICATOR TOP ONE ×2 (07:06→08:09)
[2020-02-03] MEDS ORDERED: SCOPOLAMINE PATCH TOP ONE (07:09)
--- NOTE | 2020-02-03 07:15 | ANESTHESIA ---
Pre-Anesthesia VS, & Labs - Diagnosis missed AB - Procedure Suction D&C Vital Signs: Temp Pulse Resp BP Pulse Ox 36.8 C 93 18 127/89 H 98 02/03/20 06:25 02/03/20 06:25 02/03/20 06:25 02/03/20 06:25 02/03/20 06:25 Height 5 ft 3 in Weight (kg) 95 kg Body Mass Index 36.3 - NPO >8 hours - Is Patient ?: No - Lab Results Lab results reviewed: Yes Home Medications and Allergies Active Medications Doxycycline Hyclate 200 mg/ (Sodium Chloride) 250 mls @ 100 mls/hr IV ONCE RODRIGUEZ Stop: 02/03/20 10:00 Propranolol [Inderal] 10 mg PO BID 09/11/15 Allergies/Adverse Reactions: Allergies Allergy/AdvReac Type Severity Reaction Status Date / Time amoxicillin Allergy Edema Verified 09/12/19 19:54 Anes History & Medical History - Anesthetic History Anesthesia Complications: reports: Post-Operative Nausea/Vomiting (scope patch this AM, one emesis event in car following a GA) - Medical History Cardiovascular: reports: Hypertension Pulmonary: reports: None Gastrointestinal: reports: None Urinary: reports: None Neuro: reports: Headaches, Migraines, Motion sickness Musculoskeletal: reports: None Endocrine/Autoimmune: reports: Other Blood Disorders: reports: None Skin: reports: None Smoking Status: Never smoker - Surgical History General: Cholecystectomy Gynecologic: Dilation and currettage, Breast reduction Exam General: Alert, Oriented x3, Cooperative Dental: WNL Mouth Openin Fingerbreadth Neck Mobility: Normal Mallampati classification: II Thyromental Distance: greater than 6 cm Respiratory: Lungs clear, Normal breath sounds, No respiratory distress Cardiovascular: Regular rate Neurological: Normal speech Cognitive Status: Within normal limits Plan Anesthesia Type: General Consent for Procedure(s) Verified and Reviewed: Yes Code Status: Attempt Resuscitation ASA classification: 2-Mild systemic disease Is this case an emergency?: No
[2020-02-03 07:23] LABS: BASOPHILS # (AUTO) 0.1 10^3/uL (0.0-0.1); BASOPHILS % (AUTO) 0.6 %; EOSINOPHILS # (AUTO) 0.2 10^3/uL (0.0-0.7); EOSINOPHILS % (AUTO) 2.4 %; HGB - HEMOGLOBIN 14.3 g/dL (12.0-16.0); LYMPHOCYTES # (AUTO) 2.3 10^3/uL (1.5-3.5); LYMPHOCYTES % (AUTO) 28.6 %; MEAN CORPUSCULAR HEMOGLOBIN 29.1 pg (27.0-31.0); MEAN CORPUSCULAR HGB CONC 33.4 g/dL (32.0-36.0); MEAN CORPUSCULAR VOLUME 87.2 fL (81.0-99.0); MEAN PLATELET VOLUME 10.9 fL (7.9-10.8); MONOCYTES # (AUTO) 0.4 10^3/uL (0.0-1.0); MONOCYTES % (AUTO) 5.5 %; NEUTROPHILS % (AUTO) 62.4 %; PLT - PLATELET COUNT 238 10^3/uL (130-450); RED BLOOD COUNT 4.91 10^6/uL (4.20-5.40); RED CELL DISTRIBUTION WIDTH 12.7 % (12.0-15.0)
[2020-02-03] MEDS ORDERED: SCOPOLAMINE PATCH TOP SCH (08:00)
[2020-02-03] MEDS ORDERED: DOXYCYCLINE INJ 200 MG in SODIUM CHLORIDE 0.9% 250 ML IV SCH (08:00)
[2020-02-03] MEDS ORDERED: miSOPROStoL 200 MCG TABLET PR ONE (08:08)
[2020-02-03] MEDS ORDERED: oxyCODONE 5 MG TABLET PO PRN (08:23)
[2020-02-03] MEDS ORDERED: ONDANSETRON 4 MG/2 ML VIAL IVP PRN (08:23)
[2020-02-03] MEDS ORDERED: HYDROmorphone 0.5 MG/0.5 ML SYRINGE IVP PRN (08:23)
--- NOTE | 2020-02-03 08:27 | OPERATIVE REPORT ---
Operative Report - General Procedure Date: 02/03/20 Planned Procedure: suction dilation and curettage Pre-Op Diagnosis: 1. missed 2. recurrent loss Procedure Performed: suction dilation and curettage Post Op Diagnosis: same as above, completed - Procedure Note Primary Surgeon: Obey Villeda Anesthesia Technique: General LMA Pathology: products of conception (portion sent fresh for chromosomal analysis) IV Fluids (mL): 300 Estimated Blood Loss (mL): 75 Urine Output (mL): 25 Indications: missed measuring 6 wga with no FCA (no growth of pole over 4 weeks and loss of previously visualized FCA) Findings: Tissue collected over several passes with suction. Some moderate atony at conclusion, placed 800 mcg of misoprostol CA with improved tone and bleeding Complications: none - Other Other Information/Narrative: Procedure: After informed consent was assured, the patient was taken to the operating room where anesthesia was induced. Pt was placed in high dorsal lithotomy with yellow fin stirrups. The patient was prepped and draped in the usual sterile fashion. Suction was set-up and tested. A surgical timeout was performed. A speculum was inserted into the vagina, and a tenaculum was placed on the anterior lip of the cervix. Hanks dilators were used to dilate the cervical os to size 20 Syri[place]. A 7 mm suction catheter was inserted through the cervix to the fundus, and suction was applied. Moderate POC tissue was returned; a portion of tissue was passed into a sterile specimen container to be sent fresh to allow for possible chromosomal analysis. A sharp currette was then inserted to the fundus and gently withdrawn along all surfaces of the uterus, achieving good uterine cri. A final pass was then made with the suction to remove any loosened tissue. The cervix remained approximately 1 cm dilated and was noted to have slow ooze with some mild atony on bimanual exam, so 800 mcg misoprostol were placed CA. Gloves were changed and the bladder was drained with a red maddie catheter, returning 25 mL clear yellow urine. Uterine tone noted to improve. The tenaculum was removed from the cervix, silver nitrate was applied to tenaculum sites with good hemostasis observed. All instruments were removed from the vagina, and a repeat bimanual exam revealed a small firm uterus and no instruments in the vaginal vault. The pt was taken to PACU in stable condition.
[2020-02-03 09:09] VITALS: BP 120/87
== END 2020-02-03 06:20 | disposition home or self-care (01) ==
LOC: SDS 06:19
PROVIDERS: ATTEND Obstetrics & Gynecology
PROC: 10D17Z9 Manual Extraction of Products of Conception, Retained, Via Natural or Artificial Opening (ICD-10-PCS; principal; 2020-02-03 07:30)
DX: O02.1 Missed abortion (principal); I10 Essential (primary) hypertension
CPT/HCPCS: 85025; 86850; 86900; 86901

== ENCOUNTER 2020-10-10 18:44 | Emergency (ER) | payer OTHER ==
[2020-10-10] MEDS ORDERED: HYDROcod/ACETAM 5/325 MG TABLET PO STA (19:16)
--- NOTE | 2020-10-10 19:18 | ED Physician Documentation ---
PD HPI UPPER EXT INJURY - Stated complaint Stated Complaint: GLF - Chief complaint Chief Complaint: Trauma Ext - History obtained from History obtained from: Patient - History of Present Illness Location: Left Where injury occurred: Home - Additonal information Additional information: She was running late for work this morning and ran into the bathroom and tripped over her dog's leash and fell with her forearm against the wall. Has persistent severe pain in the area of the left proximal ulna. No other injuries. 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[employer] EQUIPMENT: Dilation and currettage, Breast reduction - Present Medications Home Medications: Ambulatory Orders Medication Instructions Recorded Confirmed Propranolol [Inderal] 10 mg PO BID 09/11/15 10/10/20 - Allergies Allergies/Adverse Reactions: Allergies Allergy/AdvReac Type Severity Reaction Status Date / Time amoxicillin Allergy Edema Verified 10/10/20 18:49 - Social History Does the pt smoke?: No Smoking Status: Never smoker Does the pt drink ETOH?: Yes Does the pt have substance abuse?: No - Immunizations Immunizations are current?: Yes - POLST Patient has POLST: No PD ED PE NORMAL - Vitals Vital signs reviewed: Yes - General General: Alert and oriented X 3, No acute distress - HEENT HEENT: PERRL, EOMI - Extremities Extremities: Other (Tender to the upper ulna and limited range of motion at the elbow and wrist due to same. There is some dependent edema in the left hand without neurovascular compromise.) - Neuro Neuro: Alert and oriented X 3, Normal speech Results - Vitals Vitals: Vital Signs - 24 hr 10/10/20 10/10/20 18:50 20:14 Temperature 37 C 36.7 C Heart Rate 103 H 90 Respiratory 20 18 Rate Blood Pressure 153/102 H 147/91 H O2 Saturation 99 100 Oxygen O2 Source Room air - Rads (name of study) L forearm XR Radiology: EMP read contemporaneously (NAD) Departure - Departure Disposition: 01 Home, Self Care Clinical Impression: Contusion of left arm Qualifiers: Encounter type: initial encounter Qualified Code(s): S40.022A - Contusion of left upper arm, initial encounter Condition: Good Record reviewed to determine appropriate education?: Yes Instructions: ED Contusion Upper Ext Comments: If still hurting a lot in a week recheck with your doctor. Return for new or worsening symptoms. Discharge Date/Time: 10/10/20 20:17
--- NOTE | 2020-10-10 19:54 | XRAY Report ---
PROCEDURE: Forearm LT INDICATIONS: arm inj TECHNIQUE: 2 views of the forearm were acquired. COMPARISON: None FINDINGS: Bones: No fractures or dislocations. No suspicious bony lesions. Soft tissues: No suspicious soft tissue calcifications or masses. IMPRESSION: No gross acute forearm fracture or dislocation. No gross soft tissue abnormality. Reviewed by: Fidel Sarmiento MD on 10/10/2020 7:53 PM PST Approved by: Fidel Sarmiento MD on 10/10/2020 7:53 PM PST Station ID: [id number]
[2020-10-10] MEDS ORDERED: HYDROcod/ACET 5/325 Prepack 4 PO STA (19:57)
[2020-10-10 20:15] VITALS: BP 147/91
== END 2020-10-10 20:17 | disposition home or self-care (01) ==
LOC: ED 18:44
DX: S50.12XA Contusion of left forearm, initial encounter (principal); W18.09XA Striking against other object with subsequent fall, initial encounter; Y92.002 Bathroom of unspecified non-institutional (private) residence as the place of occurrence of the external cause; I10 Essential (primary) hypertension
CPT/HCPCS: 73090; 99282; 99283; A9270

== ENCOUNTER 2020-10-20 18:29 | Emergency (ER) | payer OTHER ==
--- NOTE | 2020-10-20 18:58 | ED Physician Documentation ---
History of Present Illness - Stated complaint Stated Complaint: WEAKNESS,NUMBNESS - Chief complaint Chief Complaint: General - Additonal information Additional information: 40-year-old female presents to the emergency department with fatigue, malaise body aches tingling in her lower legs. She reports that she received the motor during a vaccine on Saturday which was 5 days ago. Shortly thereafter she began to have body aches fatigue chills and just generally feeling unwell. She reports that she began to have tingling in her lower extremities today. She became concerned because she has a history of preeclampsia and was told that if she ever developed tingling in her legs that it could be a sign of a stroke therefore she presents to the emergency department. She is currently taking propanolol 10 mg twice daily for elevated blood pressure though I suspect this is for anxiety. Positive tobacco. Review of Systems Constitutional: reports: Chills, Myalgias, Fatigue. denies: Fever Eyes: reports: Reviewed and negative Ears: reports: Reviewed and negative Nose: reports: Reviewed and negative Cardiac: denies: Chest pain / pressure, Palpitations, Pedal edema, Calf pain Respiratory: denies: Dyspnea, Cough GI: denies: Abdominal Pain, Nausea, Vomiting : reports: Reviewed and negative Skin: reports: Reviewed and negative Musculoskeletal: reports: Reviewed and negative Neurologic: reports: Generalized weakness. 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, Breast reduction - Present Medications Home Medications: Ambulatory Orders Medication Instructions Recorded Confirmed Propranolol [Inderal] 10 mg PO BID 09/11/15 10/20/20 - Allergies Allergies/Adverse Reactions: Allergies Allergy/AdvReac Type Severity Reaction Status Date / Time amoxicillin Allergy Edema Verified 10/20/20 18:40 - Social History Does the pt smoke?: No Smoking Status: Never smoker Does the pt drink ETOH?: Yes Does the pt have substance abuse?: No - Immunizations Immunizations are current?: Yes - POLST Patient has POLST: No PD ED PE EXPANDED - General General: Alert, No acute distress - Neck Neck: Supple w/out meningeal sx. No: Adenopathy - Cardiac Cardiac: Tachy, Regular Rhythm, Radial strong equal, Cap refill < 2 sec - Respiratory Respiratory: Clear to ausultation eric. No: Distress, Labored - Abdomen Abdomen: Normal Bowel sounds. No: Tender to palpation - Derm Derm: Normal color, Warm and dry. No: Rash - Extremities Extremities: Normal. No: Deformity, Tenderness, Pedal edema bilateral, Right calf TTP/cord, Left calf TTP/cord - Neuro Neuro: Alert and Oriented X 3, CNII-XII intact, Normal gait, Normal finger nose, Normal speech - GCS Eye Opening: Spontaneous Motor: Obeys Commands Verbal: Oriented Total: 15 Results - Vitals Vitals: Vital Signs - 24 hr 10/20/20 10/20/20 18:37 19:22 Temperature 36.6 C Heart Rate 110 H 87 Respiratory 16 16 Rate Blood Pressure 152/129 H 140/87 H O2 Saturation 96 96 Oxygen O2 Source Room air - Labs Labs: Laboratory Tests 10/20/20 19:10 Group A Strep Rapid Negative PD MEDICAL DECISION MAKING - ED course Complexity details: reviewed results, re-evaluated patient ED course: This is a well-appearing though anxious 40-year-old female who presents emergency department feeling generally unwell after receiving her Mater[employer] Covid vaccination 5 days ago. She has been having fatigue chills body aches and now tingling in her lower extremities. She reports a history of hypertension for which she takes 10 mg of propanolol daily. She also reports history of anxiety. I suspect that the propanolol doses for anxiety and not hypertension. She is concerned that she may be having a stroke. Neurologically she has no focal neuro deficits and a normal cerebellar exam. I discussed with her that it is common for people to have an immune response after the Covid vaccine that can include fatigue body aches and chills. We did discuss the elevated blood pressure that she has here in the emergency department. No associated chest pain or shortness of breath. I have encouraged her to follow-up with her primary care provider to discuss this ED visit to discuss if an alternative medication should be used to control of her blood pressure Rapid strep screening is negative. Patient was allowed to relax for short time here in the emergency department and upon recheck her vital signs including hypertension and tachycardia have resolved. She reports that the tingling in her lower extremities is also better. Departure - Departure Disposition: 01 Home, Self Care Clinical Impression: Anxiety Post-vaccination reaction Qualifiers: Encounter type: initial encounter Qualified Code(s): T88.1XXA - Other complications following immunization, not elsewhere classified, initial encounter Condition: Stable Record reviewed to determine appropriate education?: Yes Comments: Rossana the myalgias chills fatigue and general feeling of being unwell can be a common post Covid vaccine reaction. I encourage you to be gentle with your self get plenty of rest and drink lots of fluids. I would encourage you to discuss with [employer] the propanolol dose that you take. A 10 mg tablet is typically used to treat anxiety and not high blood pressure. Nevertheless after a little bit of rest here in the emergency department the blood pressure had normalized. If at any point you develop slurred speech, have facial droop, focal weakness in your arms, sudden severe chest pain or cannot catch her breath please return immediately to the ER.
[2020-10-20 19:23] VITALS: BP 140/87
[2020-10-20 19:28] LABS: RAPID STREP SCREEN Negative (Negative)
== END 2020-10-20 19:47 | disposition home or self-care (01) ==
LOC: ED 18:29
DX: T88.1XXA Other complications following immunization, not elsewhere classified, initial encounter (principal); F41.9 Anxiety disorder, unspecified; I10 Essential (primary) hypertension; Z20.822 Contact with and (suspected) exposure to COVID-19
CPT/HCPCS: 87070; 87430; 99283; 99284

== ENCOUNTER 2021-05-06 11:07 | Emergency (ER) | payer OTHER ==
--- NOTE | 2021-05-06 11:40 | ED Physician Documentation ---
History of Present Illness - Stated complaint Stated Complaint: RACING HEART, CP - Chief complaint Chief Complaint: Cardiac - Additonal information Additional information: 40-year-old female presents the emergency department for evaluation of worsening palpitations that have been occurring with increased frequency over the last month but predominantly over the last week. This a.m. she felt a twinge or sharp pain in her chest. That has fully resolved. She denies that she is having any shortness of breath. She has been on propanolol since 2011. Reports that this was started for blood pressure. She also occasionally takes a low-dose benzodiazepine for anxiety. Denies cannabis alcohol or tobacco use. Denies social stressors financial or home stressors. [place] and was referred to a [facility] ologist at one time but got lost to follow-up. No family history of early or sudden cardiac disease or . Patient is not having any syncopal episodes. Denies heavy menstrual cycles. Review of Systems Constitutional: denies: Fever, Chills Eyes: reports: Reviewed and negative Nose: reports: Reviewed and negative Throat: reports: Reviewed and negative Cardiac: reports: Palpitations. denies: Chest pain / pressure, Pedal edema, Calf pain Respiratory: denies: Dyspnea, Cough GI: reports: Reviewed and negative : reports: Reviewed and negative Skin: reports: Reviewed and negative Musculoskeletal: reports: Reviewed and negative PD PAST MEDICAL HISTORY - Past Medical History Cardiovascular: Hypertension Respiratory: Asthma Neuro: Headaches, Migraines, Motion sickness Endocrine/Autoimmune: Other GI: None ENDODONTIST: Miscarriage(s) : None HEENT: Chronic vision loss Psych: None Musculoskeletal: None Derm: None - Past Surgical History Past Surgical History: Yes General: Cholecystectomy /ENDODONTIST: Dilation and currettage, Breast reduction - Present Medications Home Medications: Ambulatory Orders Medication Instructions Recorded Confirmed Propranolol [Inderal] 10 mg PO BID 09/11/15 10/20/20 - Allergies Allergies/Adverse Reactions: Allergies Allergy/AdvReac Type Severity Reaction Status Date / Time amoxicillin Allergy Edema Verified 05/06/21 11:23 - Social History Does the pt smoke?: No Smoking Status: Never smoker Does the pt drink ETOH?: Yes Does the pt have substance abuse?: No - Immunizations Immunizations are current?: Yes - POLST Patient has POLST: No PD ED PE NORMAL - General General: Alert and oriented X 3, No acute distress - HEENT HEENT: PERRL, Moist mucous membranes - Neck Neck: Supple, no meningeal sign - Cardiac Cardiac: RRR, No murmur, Strong equal pulses - Respiratory Respiratory: No respiratory distress, Clear bilaterally - Abdomen Abdomen: Normal bowel sounds, Soft, Non tender, Non distended - Derm Derm: Normal color, Warm and dry, No rash - Extremities Extremities: No deformity Results - Vitals Vitals: Vital Signs - 24 hr 05/06/21 05/06/21 11:18 11:39 Temperature 36.3 C L Heart Rate 92 82 Respiratory 20 14 Rate Blood Pressure 165/102 H 157/92 H O2 Saturation 100 98 Oxygen O2 Source Room air - EKG (time done) 1127 Rate: Rate (enter#) (86) Rhythm: NSR [place]: Normal Intervals: Normal IN. No: Prolonged QT QRS: Normal, Poor R wave progression Ischemia: Normal ST segments Compare to prior EKG: Old EKG unavailable Computer interpretation: Agree with computer - Labs Labs: Laboratory Tests 05/06/21 05/06/21 05/06/21 11:38 11:38 11:38 WBC 9.0 RBC 4.86 Hgb 14.1 Hct 42.8 MCV 88.1 MCH 29.0 MCHC 32.9 RDW 12.8 Plt Count 283 MPV 10.6 Neut # (Auto) 5.7 Lymph # (Auto) 2.6 [place] # (Auto) 0.5 Eos # (Auto) 0.2 Baso # (Auto) 0.0 Absolute Nucleated RBC 0.00 Nucleated RBC % 0.0 Sodium 140 Potassium 3.9 Chloride 106 Carbon Dioxide 24 Anion Gap 10.0 BUN 12 Creatinine 0.8 Estimated GFR (MDRD) 79 L Glucose 105 H Calcium 9.6 Total Bilirubin 0.6 AST 26 ALT 35 Alkaline Phosphatase 67 Troponin I High Sens 2.8 Total Protein 8.1 Albumin 4.2 Globulin 3.9 Albumin/Globulin Ratio 1.1 Lipase 36 Serum HCG, Qual 05/06/21 11:38 WBC RBC Hgb Hct MCV MCH MCHC RDW Plt Count MPV Neut # (Auto) Lymph # (Auto) [place] # (Auto) Eos # (Auto) Baso # (Auto) Absolute Nucleated RBC Nucleated RBC % Sodium Potassium Chloride Carbon Dioxide Anion Gap BUN Creatinine Estimated GFR (MDRD) Glucose Calcium Total Bilirubin AST ALT Alkaline Phosphatase Troponin I High Sens Total Protein Albumin Globulin Albumin/Globulin Ratio Lipase Serum HCG, Qual NEGATIVE - Rads (name of study) CXR Radiology: Final report received (no acute cardiopulmonary process) PD MEDICAL DECISION MAKING - ED course Complexity details: reviewed results, d/w patient ED course: 40-year-old female presents emergency department for evaluation of palpitations been ongoing for quite some time but with increased frequency over the last month and now week. She did feel a twinge of pain in her chest this morning. Has had no syncope. Patient is PERC and Wells criteria negative. While here in the emergency department she has been on the monitor without any ectopy or arrhythmia noted. Screening labs without any acute abnormalities and electrolytes without any concerning findings including her troponin. Chest x-ray unremarkable. Encourage close follow-up with her PCP. She may benefit from a Holter monitor or a stress test. also consider further BP management and evaluation vs tx for anxiety emergent return precautions discussed Departure - Departure Disposition: 01 Home, Self Care Clinical Impression: Palpitations, Elevated blood pressure reading Condition: Stable Record reviewed to determine appropriate education?: Yes Instructions: ED Palpitations Comments: you were seen in the ED today for palpitations. This can be a very anxiety provoking condition. While here in the ED your EKG was normal and no abnormal rhythms were seen. Your screening blood count and chemistries were normal. Your EKG was normal. Your BP was mildly elevated in the ED. This is a common finding in the ED please discuss with your primary doctor this ED visit. Further steps to evaluate the palpitations can be taken including wearing a holter monitor, discussing other medications for BP control if necessary or discussion of anxiety management if felt to be contributing to the palpitations Return to the ED if you have fevers, fainting episodes, leg swelling, or become severely short of breath
[2021-05-06 11:44] LABS: BASOPHILS % (AUTO) 0.4 %; EOSINOPHILS # (AUTO) 0.2 10^3/uL (0.0-0.7); HCT - HEMATOCRIT 42.8 % (37.0-47.0); HGB - HEMOGLOBIN 14.1 g/dL (12.0-16.0); LYMPHOCYTES # (AUTO) 2.6 10^3/uL (1.5-3.5); LYMPHOCYTES % (AUTO) 28.2 %; MEAN CORPUSCULAR HGB CONC 32.9 g/dL (32.0-36.0); MEAN CORPUSCULAR VOLUME 88.1 fL (81.0-99.0); MEAN PLATELET VOLUME 10.6 fL (7.9-10.8); MONOCYTES # (AUTO) 0.5 10^3/uL (0.0-1.0); MONOCYTES % (AUTO) 5.4 %; NEUTROPHILS # (AUTO) 5.7 10^3/uL (1.5-6.6); NEUTROPHILS % (AUTO) 63.6 %; PLT - PLATELET COUNT 283 10^3/uL (130-450); RED BLOOD COUNT 4.86 10^6/uL (4.20-5.40); RED CELL DISTRIBUTION WIDTH 12.8 % (12.0-15.0)
[2021-05-06 12:13] LABS: ALBUMIN 4.2 g/dL (3.2-5.5); ALBUMIN/GLOBULIN RATIO 1.1 (1.0-2.2); BILIRUBIN,TOTAL 0.6 mg/dL (0.2-1.0); CALCIUM 9.6 mg/dL (8.5-10.3); CREATININE 0.8 mg/dL (0.4-1.0); POTASSIUM 3.9 mmol/L (3.5-5.0); TOTAL PROTEIN 8.1 g/dL (6.7-8.2)
[2021-05-06 12:21] LABS: HCG,QUALITATIVE BLOOD NEGATIVE
--- NOTE | 2021-05-06 12:30 | XRAY Report ---
PROCEDURE: Chest 1 View X-Ray INDICATIONS: palpitations TECHNIQUE: One view of the chest was acquired. COMPARISON: 04/02/2018 FINDINGS: Surgical changes and devices: None. Lungs and pleura: No pleural effusions or pneumothorax. Lungs are clear. Elevated right hemidiaphr agm noted. Mediastinum: Mediastinal contours appear normal. Heart size is normal. Bones and chest wall: No suspicious bony lesions. Overlying soft tissues appear unremarkable. IMPRESSION: No acute cardiopulmonary findings Reviewed by: Beka Daniels MD on 05/06/2021 11:29 AM LOUISE Approved by: Beka Daniels MD on 05/06/2021 11:29 AM AKCHAITANYA Station ID: [id number]
[2021-05-06 12:51] VITALS: BP 145/81
== END 2021-05-06 12:45 | disposition home or self-care (01) ==
LOC: ED 11:07
DX: R00.2 Palpitations (principal); I10 Essential (primary) hypertension; F41.9 Anxiety disorder, unspecified
CPT/HCPCS: 36415; 80053; 83690; 84484; 84703; 85025; 93005; 99284

== ENCOUNTER 2022-05-07 04:17 | Emergency (ER) | payer OTHER ==
[2022-05-07 04:31] VITALS: BP 142/91
[2022-05-07] MEDS ORDERED: ALBUTEROL NEB 2.5 MG/3 ML INH STA (04:37)
[2022-05-07] MEDS ORDERED: ACETAMINOPHEN 325 MG TABLET PO STA (04:58)
[2022-05-07] MEDS ORDERED: guaiFENesin/DEXTROMETHORPHAN 10 ML UDC PO STA (04:59)
--- NOTE | 2022-05-07 04:59 | ED Physician Documentation ---
PD HPI URI - Stated complaint Stated Complaint: COUGH, BODY ACHES - Chief complaint Chief Complaint: Resp - History obtained from History obtained from: Patient - Additional information Additional information: Patient is a 41-year-old female with no significant past medical history presenting for evaluation of cough for 5 days which is occasionally productive of clear to yellow sputum. Normally when she has a cough she is able to still get some sleep with TheraFlu but has not been able to for the last few nights.It is hard for her to take a deep breath because it triggers her cough but she otherwise denies shortness of breath.She denies history of asthma, COPD or smoking.She has not noticed a fever. Her children have also been ill with similar symptoms. Her daughter was seen last week in the emergency department with a negative COVID test and mother believes that the remainder of the respiratory panel was also negative.Patient denies chest pain, abdominal pain, vomiting or diarrhea. 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(s) : None HEENT: Chronic vision loss Psych: None Musculoskeletal: None Derm: None - Past Surgical History Past Surgical History: Yes General: Cholecystectomy /NURSING TECH: Dilation and currettage, Breast reduction, Other - Present Medications Home Medications: Ambulatory Orders Medication Instructions Recorded Confirmed Propranolol [Inderal] 10 mg PO BID 09/11/15 05/07/22 Albuterol Sulf [Ventolin Hfa 1 - 2 puffs INH Q4HR PRN #1 each 05/07/22 Inhaler] amLODIPine [Norvasc] 5 mg PO QPM 05/07/22 05/07/22 guaiFENesin/DEXTROMETHORPHAN 10 ml PO Q6HR PRN #120 ml 05/07/22 [Robitussin Dm] - Allergies Allergies/Adverse Reactions: Allergies Allergy/AdvReac Type Severity Reaction Status Date / Time amoxicillin Allergy Edema Verified 05/07/22 04:31 - Social History Does the pt smoke?: No Smoking Status: Never smoker Does the pt drink ETOH?: Yes Does the pt have substance abuse?: No - Immunizations Immunizations are current?: Yes - POLST Patient has POLST: No PD ED PE NORMAL - General General: Alert and oriented X 3, No acute distress, Well developed/nourished - HEENT HEENT: Atraumatic, Moist mucous membranes, Pharynx benign (No oral swelling, erythema or exudate) - Neck Neck: Supple, no meningeal sign - Cardiac Cardiac: RRR, Strong equal pulses - Respiratory Respiratory: No respiratory distress, Clear bilaterally, Other (Frequent coughing when trying to take a deep breath) - Abdomen Abdomen: Non tender, Non distended - Derm Derm: Warm and dry - Extremities Extremities: No edema, No calf tenderness / cord - Neuro Neuro: Normal speech Results - Vitals Vitals: Vital Signs - 24 hr 05/07/22 05/07/22 04:20 04:50 Temperature 37.9 C Heart Rate 99 99 Respiratory 18 18 Rate Blood Pressure 142/91 H O2 Saturation 97 Oxygen O2 Source Room air - Labs Labs: Laboratory Tests 05/07/22 04:40 Nasal Adenovirus (PCR) NOT DETECTED Nasal B. parapertussis DNA (PCR) NOT DETECTED Nasal Coronavir 229E PCR NOT DETECTED Nasal Coronavir HKU1 PCR NOT DETECTED Nasal Coronavir NL63 PCR NOT DETECTED Nasal Coronavir OC43 PCR NOT DETECTED Nasal Enterovir/Rhinovir PCR NOT DETECTED Nasal Influenza B PCR NOT DETECTED Nasal Influenza A PCR NOT DETECTED Nasal Parainfluen 1 PCR NOT DETECTED Nasal Parainfluen 2 PCR NOT DETECTED Nasal Parainfluen 3 PCR DETECTED A Nasal Parainfluen 4 PCR NOT DETECTED Nasal RSV (PCR) NOT DETECTED Nasal B.pertussis DNA PCR NOT DETECTED Nasal C.pneumoniae (PCR) NOT DETECTED [place] Human Metapneumo PCR NOT DETECTED Nasal M.pneumoniae (PCR) NOT DETECTED Nasal SARS-CoV-2 (PCR) NOT DETECTED PD MEDICAL DECISION MAKING - ED course Complexity details: reviewed results, re-evaluated patient ED course: Patient presenting for evaluation of ongoing cough with low-grade fever. Her vitals are otherwise reassuring. She has frequent coughing when attempting to take deep breaths and so a nebulizer was given. This did improve her symptoms and she was able to take deep breaths easier. Chest x-ray is negative for infiltrate. Respiratory panel is pending. Patient given a dose of Decadron to also aid in her bronchospasms as well as cough medications. Discussed continuing supportive care with inhaler and cough medication as well as hydration. Patient counseled on concerning symptoms to return for. After discharge, noted that respiratory panel is positive for parainfluenza. Departure - Departure Disposition: 01 Home, Self Care Clinical Impression: URI (upper respiratory infection), Cough Condition: Stable Instructions: ED Viral Syndrome Prescriptions: Albuterol Sulf [Ventolin Hfa Inhaler] 1 - 2 puffs INH Q4HR PRN #1 each PRN Reason: Shortness Of Air/Wheezing guaiFENesin/DEXTROMETHORPHAN [Robitussin Dm] 10 ml PO Q6HR PRN #120 ml PRN Reason: Cough Comments: You were evaluated for a cough. You have a low-grade temperature but overall your vital signs are reassuring. We did give you a breathing treatment to see if this would help with your symptoms and it appears it has. Therefore I will send a prescription for an albuterol inhaler to [place] [facility] [place] cough medication. Your chest X-ray is clear without signs of pneumonia. A respiratory panel is pending. We will notify you if it is positive for COVID. However we will also check for influenza and if you have the other common cold viruses. You have a Covid test pending. You need to self quarantine until the result is done and negative. Do not leave your house. Do not get near anybody. The results should be done in 48 to 72 hours. We will call with a positive result, the fastest way to get a negative result for confirmation though is to go to the hospital website at [email or web address], click on the my [facility] tab and sign up for the patient portal. If any friends or family get sick and would like to have a Covid test done, but do not have signs or symptoms that would necessitate being hospitalized, there are multiple local options for Covid testing. [facility] keeps an updated list of testing and vaccination options at: [email or web address]. Please return to the emergency department with any worsening symptoms such as labored breathing, vomiting. If your cough persists please consider following up with your primary care doctor. Forms: Activity restrictions
[2022-05-07] MEDS ORDERED: DEXAMETHASONE 10 MG/ML VIAL PO STA (05:00)
[2022-05-07] MEDS ORDERED: CHERRY SYRUP 10 ML UDC PO ONE (05:00)
[2022-05-07 05:33] LABS: B. PARAPERTUSSIS- RESP PCR PAN NOT DETECTED; B. PERTUSSIS- RESP PCR PANEL NOT DETECTED; C. PNEUMONIAE- RESP PCR PANEL NOT DETECTED; CORONAVIRUS 229E-RESP PCR NOT DETECTED; CORONAVIRUS HKU1-RESP PCR NOT DETECTED; CORONAVIRUS NL63-RESP PCR NOT DETECTED; CORONAVIRUS OC43-RESP PCR NOT DETECTED; HUMAN METAPNEUMOVIRUS NOT DETECTED; INFLUENZA A- RESP PCR PANEL NOT DETECTED; INFLUENZA B - RESP PCR PANEL NOT DETECTED; M. PNEUMONIAE- RESP PCR PANEL NOT DETECTED; PARAINFLUENZA VIRUS 1 NOT DETECTED; PARAINFLUENZA VIRUS 2 NOT DETECTED; PARAINFLUENZA VIRUS 3 DETECTED; PARAINFLUENZA VIRUS 4 NOT DETECTED; RHINOVIRUS/ENTEROVIRUS NOT DETECTED; RSV- RESP PCR PANEL NOT DETECTED; SARS-CoV-2 -RESP PCR PANEL NOT DETECTED
--- NOTE | 2022-05-07 08:09 | XRAY Report ---
PROCEDURE: Chest 1 View X-Ray INDICATIONS: cough x 1 week TECHNIQUE: One view of the chest was acquired. COMPARISON: 05/06/2021 FINDINGS: Surgical changes and devices: None. Lungs and pleura: No pleural effusions or pneumothorax. Lungs are clear. Mediastinum: Mediastinal contours appear normal. Heart size is normal. Bones and chest wall: No suspicious bony lesions. Overlying soft tissues appear unremarkable. IMPRESSION: No acute cardiopulmonary pathology. No discrepancies from preliminary reading. Reviewed by: Fidel Sarmiento MD on 05/07/2022 8:08 AM PDT Approved by: Fidel Sarmiento MD on 05/07/2022 8:08 AM PDT Station ID: [id number]
== END 2022-05-07 05:15 | disposition home or self-care (01) ==
LOC: ED 04:17
DX: J06.9 Acute upper respiratory infection, unspecified (principal); I10 Essential (primary) hypertension; Z20.822 Contact with and (suspected) exposure to COVID-19; R06.09 Other forms of dyspnea
CPT/HCPCS: 71045; 87633; 94640; 99282; 99284; A9270

== ENCOUNTER 2022-05-16 07:39 | Emergency (ER) | payer OTHER ==
[2022-05-16] MEDS ORDERED: KETOROLAC 30 MG/ML VIAL IVP STA (08:32)
[2022-05-16] MEDS ORDERED: SODIUM CHLORIDE 0.9% 1,000 ML IV STA (08:32)
[2022-05-16] MEDS ORDERED: DEXAMETHASONE 10 MG/ML VIAL IVP STA (08:32)
--- NOTE | 2022-05-16 08:35 | ED Physician Documentation ---
PD HPI BACK PAIN - Stated complaint Stated Complaint: BACK PX/SOA - Chief complaint Chief Complaint: Back Pain - History obtained from History obtained from: Patient, Family - History of Present Illness Timing - onset: Today Timing - duration: Hours Timing - details: Abrupt onset, Still present Location: Lower, Right Quality: Pain, Spasm, Sharp Associated symptoms: Fever Improves with: Rest Worsened by: Movement, Twisting, Palpation Contributing factors: Other (coughing hard) Similar symptoms before: Diagnosis (back strain) Recently seen: Emergency Dept - Additional information Additional information: 41-year-old Rossana Cook has a history of asthma she has developed a viral URI and she is using an inhaler and she has been given a dose of dexamethasone 5 days ago. She had some transient improvement with that this morning she had a coughing paroxysms hard enough that it caused a severe spasm in her right lower back and she is unable to even stand secondary to the pain. She has persistence of her cough she is lost her voice her prior visit indicated parainfluenza 3 as the organism she is fighting. Review of Systems Constitutional: reports: Fever, Chills, Myalgias, Fatigue Eyes: denies: Decreased vision Ears: reports: Ear pain Nose: reports: Rhinorrhea / runny nose, Congestion Throat: denies: Sore throat Cardiac: denies: Chest pain / pressure, Palpitations, Pedal edema, Calf pain Respiratory: reports: Dyspnea, Cough, Wheezing GI: denies: Abdominal Pain, Nausea, Vomiting, Diarrhea : denies: Dysuria, Frequency Skin: denies: Rash Musculoskeletal: reports: Back pain. 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 HEENT: Chronic vision loss Psych: None Musculoskeletal: None Derm: None - Past Surgical History Past Surgical History: Yes General: Cholecystectomy /AGRICULTURAL EQUIPMENT SALES MANAGER: Dilation and currettage, Breast reduction, Other - Present Medications Home Medications: Ambulatory Orders Medication Instructions Recorded Confirmed Propranolol [Inderal] 10 mg PO BID 09/11/15 05/07/22 Albuterol Sulf [Ventolin Hfa 1 - 2 puffs INH Q4HR PRN #1 each 05/07/22 Inhaler] amLODIPine [Norvasc] 5 mg PO QPM 05/07/22 05/07/22 guaiFENesin/DEXTROMETHORPHAN 10 ml PO Q6HR PRN #120 ml 05/07/22 [Robitussin Dm] Azithromycin [Zithromax] 250 mg PO DAILY #6 tablet 05/16/22 Benzonatate [Tessalon] 200 mg PO TID PRN #30 cap 05/16/22 Cyclobenzaprine [Flexeril] 10 mg PO TID PRN #20 tablet 05/16/22 HYDROcod/ACETAM 5/325 [[place] 5/325] 1 - 2 tablet PO Q6H PRN #14 tablet 05/16/22 - Allergies Allergies/Adverse Reactions: Allergies Allergy/AdvReac Type Severity Reaction Status Date / Time amoxicillin Allergy Edema Verified 05/16/22 07:47 - Social History Does the pt smoke?: No Smoking Status: Never smoker Does the pt drink ETOH?: Yes Does the pt have substance abuse?: No - Immunizations Immunizations are current?: Yes - POLST Patient has POLST: No PD ED PE NORMAL - Vitals Vital signs reviewed: Yes (tachy, tachypneic and hypertensive ) - General General: Alert and oriented X 3, Well developed/nourished, Other (patient is frequently moaning in pain and winching. pain with movement, wispering voice, frequent cough) - HEENT HEENT: Atraumatic, PERRL, EOMI, Other (mild inflamation to the TM's ) - Neck Neck: Supple, no meningeal sign, No bony TTP - Cardiac Cardiac: Other (tachy to 110) - Respiratory Respiratory: Other (tachypneic at rest appears to be hyperventilating. ) - Abdomen Abdomen: Soft, Non tender - Back Back: No CVA TTP, No spinal TTP, Other (pain to palpation in the right lower lumbar paraspinous muscles. ) - Derm Derm: Normal color, Warm and dry, No rash - Extremities Extremities: No deformity, No edema - Neuro Neuro: Alert and oriented X 3, beauty sales consultant 2-12 intact, No motor deficit, No sensory deficit, Normal speech Eye Opening: Spontaneous Motor: Obeys Commands Verbal: Oriented GCS Score: 15 - Psych Psych: Normal mood, Normal affect Results - Vitals Vitals: Vital Signs - 24 hr 05/16/22 05/16/22 05/16/22 07:47 07:54 10:16 Temperature 38.3 C H 36.3 C L Heart Rate 107 H 115 H 124 H Respiratory 32 H 25 H 15 Rate Blood Pressure 133/91 H 130/78 136/79 H O2 Saturation 99 99 100 Oxygen O2 Source Room air - Rads (name of study) chest Radiology: Prelim report reviewed (Impression: no acute radiographic abnormality on this limited 1 view chest radiograph with low lung volumes. There might be peribronchial or perihilar mild opacities representing bronchitis/early airway infection.) Procedures - Bedside sono Bedside sono by EMP: With use bedside ultrasound the right kidney is imaged it is sonographically nontender and there is no evidence of hydronephrosis PD MEDICAL DECISION MAKING - ED course Complexity details: reviewed old records, reviewed results, re-evaluated patient, considered differential, d/w patient, d/w family ED course: 41 y/o female with persistent URI symptoms has a swab + for parainfluenza 3 and she presents with persistent cough, dyspena and a new infiltrate on her CXR. She has strained her back with the cough. She is given additional dexamethasone and we will place her on a course of zithromax as well as providing cough suppressant. She was administered toradal in the ED as well with pain relief. Departure - Departure Disposition: 01 Home, Self Care Clinical Impression: Bronchitis with asthma, acute Acute lumbar myofascial strain Qualifiers: Encounter type: initial encounter Qualified Code(s): S39.012A - Strain of muscle, fascia and tendon of lower back, initial encounter Condition: Stable Instructions: ED Reactive Airway Disease, ED Low Back Pain Injury, ED Upper Resp Infec Abx Tx Follow-Up: BRANDI ROWE MD [Primary Care Provider] - Prescriptions: Cyclobenzaprine [Flexeril] 10 mg PO TID PRN #20 tablet PRN Reason: Spasms HYDROcod/ACETAM 5/325 [[place] 5/325] 1 - 2 tablet PO Q6H PRN #14 tablet PRN Reason: Pain Benzonatate [Tessalon] 200 mg PO TID PRN #30 cap PRN Reason: Cough Azithromycin [Zithromax] 250 mg PO DAILY #6 tablet Comments: Rossana today it looks like you pulled a muscle in your back with heavy coughing and we are providing some pain medication muscle relaxant as well as a cough suppressant that has been E scribed to the [facility]. In addition you are having persistence of cough and there is evidence on your chest x-ray of some crowding or infiltrate and we are going to start you on some antibiotic. The nasal swab done on your last visit showed parainfluenza virus 3 which is the virus that causes croup in children and usually as an adult you will lose her voice. Usually this will take a week to 10 days to resolve. When you have an increase in your illness this sometimes indicates a bacterial overgrowth and that is why we are placing you on this antibiotic. Our expectation is improvement in your cough and that it may take more than a week for the pain in your back to completely resolved. Discharge Date/Time: 05/16/22 10:31
--- NOTE | 2022-05-16 08:52 | XRAY Report ---
PROCEDURE: Chest 1 View X-Ray INDICATIONS: dyspnea cough fever TECHNIQUE: One view of the chest was acquired. COMPARISON: 05/07/2022 FINDINGS: Surgical changes and devices: None. Lungs and pleura: Lung volumes are low. No dense consolidation or pleural effusion. There might be s ome peribronchial perihilar mild opacities. Mediastinum: Mediastinal contours appear normal. Heart size is normal. Bones and chest wall: No suspicious bony lesions. Overlying soft tissues appear unremarkable. IMPRESSION: No acute radiographic abnormality on this limited one view chest radiograph with low lung volumes. Th ere might be peribronchial perihilar mild opacities representing bronchitis/early airway infection. Reviewed by: Escobar Galindo MD on 05/16/2022 8:50 AM PDT Approved by: Escobar Galindo MD on 05/16/2022 8:50 AM PDT Station ID: [id number]
[2022-05-16 10:18] VITALS: BP 136/79
== END 2022-05-16 10:31 | disposition home or self-care (01) ==
LOC: ED 07:39
DX: J45.909 Unspecified asthma, uncomplicated (principal); S39.012A Strain of muscle, fascia and tendon of lower back, initial encounter; X58.XXXA Exposure to other specified factors, initial encounter; I10 Essential (primary) hypertension
CPT/HCPCS: 36415; 96374; 99284

== ENCOUNTER 2022-06-10 12:06 | Emergency (ER) | payer OTHER ==
[2022-06-10 13:04] LABS: BASOPHILS % (AUTO) 0.3 %; EOSINOPHILS % (AUTO) 0.5 %; HCT - HEMATOCRIT 41.1 % (37.0-47.0); LYMPHOCYTES % (AUTO) 11.9 %; MEAN CORPUSCULAR HEMOGLOBIN 27.7 pg (27.0-31.0); MEAN CORPUSCULAR HGB CONC 31.6 g/dL (32.0-36.0); MEAN CORPUSCULAR VOLUME 87.4 fL (81.0-99.0); MEAN PLATELET VOLUME 10.2 fL (7.9-10.8); MONOCYTES % (AUTO) 7.1 %; NEUTROPHILS % (AUTO) 79.7 %; PLT - PLATELET COUNT 316 10^3/uL (130-450); RED CELL DISTRIBUTION WIDTH 14.1 % (12.0-15.0); WHITE BLOOD COUNT 24.5 x10^3/uL (4.8-10.8)
[2022-06-10 13:11] LABS: ABNORMAL LYMPHS % (MANUAL) 0 %
[2022-06-10 13:18] LABS: ALBUMIN/GLOBULIN RATIO 0.9 (1.0-2.2); BILIRUBIN,TOTAL 0.7 mg/dL (0.2-1.0); CALCIUM 9.5 mg/dL (8.5-10.3); CREATININE 0.8 mg/dL (0.4-1.0); TOTAL PROTEIN 8.4 g/dL (6.7-8.2)
[2022-06-10 13:20] LABS: BILIRUBIN,URINE NEGATIVE (NEGATIVE); GLUCOSE, URINE (UA) NEGATIVE (NEGATIVE); KETONES,URINE (UA) NEGATIVE (NEGATIVE); LEUKOCYTE ESTERASE, URINE NEGATIVE (NEGATIVE); NITRITE,URINE NEGATIVE (NEGATIVE); OCCULT BLOOD,URINE SMALL (NEGATIVE); PROTEIN,URINE NEGATIVE (NEGATIVE); UROBILINOGEN,URINE 0.2 (NORMAL) E.U./dL (NORMAL)
[2022-06-10 13:22] LABS: CLARITY,URINE CLEAR (CLEAR); HCG UR QUAL NEGATIVE
[2022-06-10 13:31] LABS: BACTERIA,URINE Moderate /HPF (None Seen); MUCUS,URINE Few Strands; RBC,URINE 0-5 /HPF (0-5); SQUAMOUS EPITHELIAL CELL,UR MANY Squamous (<= Few)
[2022-06-10 13:48] LABS: BAND NEUTROPHILS % (MANUAL) 11 %; DIFFERENTIAL COMMENT MANUAL DIFFERENTIAL; LYMPHOCYTES # (MANUAL) 3.2 10^3/uL (1.5-3.5); LYMPHOCYTES % (MANUAL) 13 %; METAMYELOCYTES % (MANUAL) 1 %; MONOCYTES # (MANUAL) 1.7 10^3/uL (0.0-1.0); NEUTROPHILS # (MANUAL) 19.4 10^3/uL (1.5-6.6)
[2022-06-10 13:49] LABS: PLATELET ESTIMATE, MANUAL NORMAL (130-450,000) (NORMAL); PLATELET MORPHOLOGY NORMAL APPEARANCE (NORMAL); RBC MORPHOLOGY (MULTIPLE) NORMAL APPEARANCE (NORMAL); WBC MORPHOLOGY (MULTIPLE) NORMAL APPEARANCE (NORMAL)
[2022-06-10] MEDS ORDERED: cefTRIAXone 1 GM in SODIUM CHLORIDE 0.9% MINIBAG 100 ML IV STA (14:02)
[2022-06-10] MEDS ORDERED: SODIUM CHLORIDE 0.9% 1,000 ML IV STA (14:02)
[2022-06-10] MEDS ORDERED: HYDROmorphone 1 MG/ML CARPUJECT IVP STA (14:03)
--- NOTE | 2022-06-10 14:04 | ED Physician Documentation ---
PD HPI URI - Stated complaint Stated Complaint: FEVER - Chief complaint Chief Complaint: Fever - History obtained from History obtained from: Patient - Additional information Additional information: 42-year-old woman with recent diagnosis of HER2 breast cancer, just had a central line/port placed and is planned for starting chemo in a few days. It is stage II. Starting Saturday but much worse yesterday she developed cough runny nose which starting yesterday developed fever and some left upper back pain related to coughing. Her children also sick with respiratory infections, 1 with pneumonia. She had a single episode of vomiting yesterday and still feels like she will vomit the she coughs too hard. No significant abdominal pain. No rashes. 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) : None HEENT: Chronic vision loss Psych: None Musculoskeletal: None Derm: None - Past Surgical History Past Surgical History: Yes General: Cholecystectomy /RECONCILIATION ANALYST: Dilation and currettage, Breast reduction, Other - Present Medications Home Medications: Ambulatory Orders Medication Instructions Recorded Confirmed Propranolol [Inderal] 10 mg PO BID 09/11/15 05/07/22 Albuterol Sulf [Ventolin Hfa 1 - 2 puffs INH Q4HR PRN #1 each 05/07/22 Inhaler] amLODIPine [Norvasc] 5 mg PO QPM 05/07/22 05/07/22 guaiFENesin/DEXTROMETHORPHAN 10 ml PO Q6HR PRN #120 ml 05/07/22 [Robitussin Dm] Azithromycin [Zithromax] 250 mg PO DAILY #6 tablet 05/16/22 Benzonatate [Tessalon] 200 mg PO TID PRN #30 cap 05/16/22 Cyclobenzaprine [Flexeril] 10 mg PO TID PRN #20 tablet 05/16/22 HYDROcod/ACETAM 5/325 [[place] 5/325] 1 - 2 tablet PO Q6H PRN #14 tablet 05/16/22 Azithromycin [Zithromax] 1 tab PO DAILY #4 tab 06/10/22 Cefdinir 300 mg PO BID #10 cap 06/10/22 HYDROcod/ACETAM 5/325 [[place] 5/325] 1 - 2 tab PO Q6H PRN #10 tablet 06/10/22 - Allergies Allergies/Adverse Reactions: Allergies Allergy/AdvReac Type Severity Reaction Status Date / Time amoxicillin Allergy Edema Verified 06/10/22 12:33 - Social History Does the pt smoke?: No Smoking Status: Never smoker Does the pt drink ETOH?: Yes Does the pt have substance abuse?: No - Immunizations Immunizations are current?: Yes - POLST Patient has POLST: No PD ED PE NORMAL - Vitals Vital signs reviewed: Yes (Tachycardic) - General General: Alert and oriented X 3, No acute distress - HEENT HEENT: PERRL, EOMI, Ears normal, Moist mucous membranes, Pharynx benign - Neck Neck: Supple, no meningeal sign, No bony TTP - Cardiac Cardiac: RRR, No murmur - Respiratory Respiratory: No respiratory distress, Clear bilaterally - Abdomen Abdomen: Non tender - Derm Derm: Other (Port in the right upper chest wall without signs of infection) - Extremities Extremities: No edema, No calf tenderness / cord - Neuro Neuro: Alert and oriented X 3, Normal speech Results - Vitals Vitals: Vital Signs - 24 hr 06/10/22 12:31 Temperature 37.0 C Heart Rate 120 H Respiratory 16 Rate Blood Pressure 129/85 H O2 Saturation 97 Oxygen O2 Source Room air - Labs Labs: Laboratory Tests 06/10/22 06/10/22 06/10/22 12:57 12:57 13:06 WBC 24.5 H RBC 4.70 Hgb 13.0 Hct 41.1 MCV 87.4 MCH 27.7 MCHC 31.6 L RDW 14.1 Plt Count 316 MPV 10.2 Neut # (Auto) Not Reportable Lymph # (Auto) Not Reportable [place] # (Auto) Not Reportable Eos # (Auto) Not Reportable Baso # (Auto) Not Reportable Absolute Nucleated RBC Not Reportable Total Counted 100 Band Neuts % (Manual) 11 H Abnorm Lymph % (Manual) 0 Metamyelocytes % 1 H Nucleated RBC % Not Reportable Neutrophils # (Manual) 19.4 H Lymphocytes # (Manual) 3.2 Monocytes # (Manual) 1.7 H Eosinophils # (Manual) 0.0 Basophils # (Manual) 0.0 Differential Comment MANUAL DIFFERENTIAL WBC Morphology NORMAL APPEARANCE Platelet Estimate NORMAL (130-450,000) Platelet Morphology NORMAL APPEARANCE RBC Morph Micro Appear NORMAL APPEARANCE Sodium 137 Potassium 4.0 Chloride 100 L Carbon Dioxide 25 Anion Gap 12.0 BUN 8 Creatinine 0.8 Estimated GFR (MDRD) 78 L Glucose 116 H Lactic Acid Calcium 9.5 Total Bilirubin 0.7 AST 19 ALT 34 Alkaline Phosphatase 110 Total Protein 8.4 H Albumin 4.0 Globulin 4.4 H Albumin/Globulin Ratio 0.9 L Lipase 28 Urine Color YELLOW Urine Clarity CLEAR Urine pH 7.0 Ur Specific [place] 1.010 Urine Protein NEGATIVE Urine Glucose (UA) NEGATIVE Urine Ketones NEGATIVE Urine Occult Blood SMALL H Urine Nitrite NEGATIVE Urine Bilirubin NEGATIVE Urine Urobilinogen 0.2 (NORMAL) Ur Leukocyte Esterase NEGATIVE Urine RBC 0-5 Urine WBC 4-5 Ur Squamous Epith Cells MANY Squamous H Urine Bacteria Moderate H Urine Mucus Few Strands Ur Microscopic Review INDICATED Urine Culture Comments NOT INDICATED Urine HCG, Qual NEGATIVE 06/10/22 15:00 WBC RBC Hgb Hct MCV MCH MCHC RDW Plt Count MPV Neut # (Auto) Lymph # (Auto) [place] # (Auto) Eos # (Auto) Baso # (Auto) Absolute Nucleated RBC Total Counted Band Neuts % (Manual) Abnorm Lymph % (Manual) Metamyelocytes % Nucleated RBC % Neutrophils # (Manual) Lymphocytes # (Manual) Monocytes # (Manual) Eosinophils # (Manual) Basophils # (Manual) Differential Comment WBC Morphology Platelet Estimate Platelet Morphology RBC Morph Micro Appear Sodium Potassium Chloride Carbon Dioxide Anion Gap BUN Creatinine Estimated GFR (MDRD) Glucose Lactic Acid 0.8 Calcium Total Bilirubin AST ALT Alkaline Phosphatase Total Protein Albumin Globulin Albumin/Globulin Ratio Lipase Urine Color Urine Clarity Urine pH Ur Specific [place] Urine Protein Urine Glucose (UA) Urine Ketones Urine Occult Blood Urine Nitrite Urine Bilirubin Urine Urobilinogen Ur Leukocyte Esterase Urine RBC Urine WBC Ur Squamous Epith Cells Urine Bacteria Urine Mucus Ur Microscopic Review Urine Culture Comments Urine HCG, Qual - Rads (name of study) Single view chest x-ray shows left-sided bacterial pneumonia Radiology: EMP read contemporaneously PD MEDICAL DECISION MAKING - ED course ED course: 42-year-old woman with recent diagnosis of breast cancer about to start chemo but has not started yet presents with fever, cough and left upper back pain. Her lungs are clear but her chest x-ray does demonstrated a left-sided lobar infiltrate which is treated here with Rocephin and azithromycin. Her white blood cell count is elevated but her lactate is unremarkable and her vital signs improved with treatment with IV fluids and initial dose of antibiotics here, as such I think she can go home. Given close return precautions. Departure - Departure Disposition: 01 Home, Self Care Clinical Impression: Pneumonia Qualifiers: Pneumonia type: due to unspecified organism Laterality: left Lung location: lower lobe of lung Qualified Code(s): J18.9 - Pneumonia, unspecified organism Condition: Good Record reviewed to determine appropriate education?: Yes Instructions: Pneumonia Dc Prescriptions: Cefdinir 300 mg PO BID #10 cap HYDROcod/ACETAM 5/325 [[place] 5/325] 1 - 2 tab PO Q6H PRN #10 tablet PRN Reason: Pain Azithromycin [Zithromax] 1 tab PO DAILY #4 tab Comments: I sent your prescription electronically to the [facility]. Return for new or worsening symptoms, follow-up and call your oncologist tomorrow to let them know that you have an active bacterial pneumonia, my suspicion is that they will want to delay your chemotherapy. I am prescribing a short course of narcotic pain medication for you. These are potentially dangerous and addictive medications that should be used carefully. These medications may constipate you. Take an ruri-iot-ciujyrd stool softener (docusate) twice daily with plenty of water while taking these medications. If you go 24 hours without a bowel movement, take [id number] miralax, per package instructions. Do not drink or drive while taking these medications. If you received narcotic or sedating medications while in the emergency department, do not drive for 24 hours. Store this medication in a safe, secure place and out of reach of children. It is a violation of federal law to give or sell this medication to another person or to use in a manner other than prescribed. The ED will not refill narcotic prescriptions, including prescriptions lost or stolen. To dispose of unwanted medications: 1. [facility] at [address] in [place] has a medication drop box. They accept prescription medications (in pill form) Saturday through Saturday 9:00 a.m. to 5:00 p.m. 2. The [facility] accepts prescription medications (in pill form only) for disposal year round. Call for more information. 3. Contact the [facility] for the next [facility] sponsored prescription drug collection event. , [phone], or [phone]; Note that many narcotic pain relievers also contain Tylenol/acetaminophen. Please ensure that your total dose of acetaminophen from all sources does not exceed 3 g (3000 mg) per day.
--- NOTE | 2022-06-10 15:18 | XRAY Report ---
PROCEDURE: Chest 1 View X-Ray INDICATIONS: cough TECHNIQUE: One view of the chest was acquired. COMPARISON: 05/16/2022 FINDINGS: Surgical changes and devices: Interval placement of a right Port-A-Cath tip in the distal SVC. No pn eumothorax. Lungs and pleura: Left lung peripheral infiltrate. No pneumothorax. Right lung and pleural space eveline ar Mediastinum: Mediastinal contours appear normal. Heart size is normal. Bones and chest wall: No suspicious bony lesions. Overlying soft tissues appear unremarkable. IMPRESSION: Left lung pulmonary infiltrate, consistent with pneumonia Reviewed by: Beka Daniels MD on 06/10/2022 2:17 PM AKST Approved by: Beka Daniels MD on 06/10/2022 2:17 PM AKST Station ID: [id number]
[2022-06-10] MEDS ORDERED: AZITHROMYCIN 250 MG TABLET PO STA (15:45)
[2022-06-10 15:47] LABS: B. PARAPERTUSSIS- RESP PCR PAN NOT DETECTED; B. PERTUSSIS- RESP PCR PANEL NOT DETECTED; C. PNEUMONIAE- RESP PCR PANEL NOT DETECTED; CORONAVIRUS 229E-RESP PCR NOT DETECTED; CORONAVIRUS HKU1-RESP PCR NOT DETECTED; CORONAVIRUS NL63-RESP PCR NOT DETECTED; CORONAVIRUS OC43-RESP PCR NOT DETECTED; HUMAN METAPNEUMOVIRUS NOT DETECTED; INFLUENZA A- RESP PCR PANEL NOT DETECTED; INFLUENZA B - RESP PCR PANEL NOT DETECTED; M. PNEUMONIAE- RESP PCR PANEL NOT DETECTED; PARAINFLUENZA VIRUS 1 NOT DETECTED; PARAINFLUENZA VIRUS 2 NOT DETECTED; PARAINFLUENZA VIRUS 3 NOT DETECTED; PARAINFLUENZA VIRUS 4 NOT DETECTED; RHINOVIRUS/ENTEROVIRUS NOT DETECTED; RSV- RESP PCR PANEL NOT DETECTED; SARS-CoV-2 -RESP PCR PANEL NOT DETECTED
[2022-06-10] MEDS ORDERED: HYDROcod/ACET 5/325 Prepack 4 PO STA (15:51)
[2022-06-10 16:12] VITALS: BP 148/88
== END 2022-06-10 16:10 | disposition home or self-care (01) ==
LOC: ED 12:06
DX: J18.9 Pneumonia, unspecified organism (principal); C50.919 Malignant neoplasm of unspecified site of unspecified female breast; I10 Essential (primary) hypertension; Z20.822 Contact with and (suspected) exposure to COVID-19
CPT/HCPCS: 36415; 71045; 80053; 81001; 81025; 83605; 83690; 85025; 87040; 87633; 96365; 96375; 99284; A9270; J1170; 81003; 87086

== ENCOUNTER 2022-08-22 13:37 | Emergency (ER) | payer OTHER ==
[2022-08-22 14:26] LABS: BASOPHILS % (AUTO) 0.4 %; EOSINOPHILS % (AUTO) 0.4 %; HCT - HEMATOCRIT 37.4 % (37.0-47.0); HGB - HEMOGLOBIN 12.3 g/dL (12.0-16.0); LYMPHOCYTES # (AUTO) 2.1 10^3/uL (1.5-3.5); LYMPHOCYTES % (AUTO) 76.1 %; MEAN CORPUSCULAR HEMOGLOBIN 28.6 pg (27.0-31.0); MEAN CORPUSCULAR HGB CONC 32.9 g/dL (32.0-36.0); MEAN PLATELET VOLUME 9.8 fL (7.9-10.8); MONOCYTES # (AUTO) 0.2 10^3/uL (0.0-1.0); NEUTROPHILS % (AUTO) 15.7 %; PLT - PLATELET COUNT 313 10^3/uL (130-450); RED CELL DISTRIBUTION WIDTH 14.6 % (12.0-15.0); WHITE BLOOD COUNT 2.7 x10^3/uL (4.8-10.8)
[2022-08-22 14:34] LABS: NEUTROPHILS # (AUTO) 0.4 10^3/uL (1.5-6.6)
[2022-08-22 14:48] LABS: BILIRUBIN,URINE NEGATIVE (NEGATIVE); GLUCOSE, URINE (UA) NEGATIVE (NEGATIVE); KETONES,URINE (UA) NEGATIVE (NEGATIVE); LEUKOCYTE ESTERASE, URINE NEGATIVE (NEGATIVE); NITRITE,URINE NEGATIVE (NEGATIVE); OCCULT BLOOD,URINE NEGATIVE (NEGATIVE); PROTEIN,URINE 30 mg/dL (NEGATIVE); UROBILINOGEN,URINE 0.2 (NORMAL) E.U./dL (NORMAL)
[2022-08-22 14:49] LABS: CLARITY,URINE CLEAR (CLEAR)
[2022-08-22 15:04] LABS: BACTERIA,URINE Rare /HPF (None Seen); RBC,URINE 0-5 /HPF (0-5); SQUAMOUS EPITHELIAL CELL,UR MOD Squamous (<= Few); WBC,URINE 0-3 /HPF (0-5)
[2022-08-22 15:12] LABS: PLATELET ESTIMATE, MANUAL NORMAL (130-450,000) (NORMAL); PLATELET MORPHOLOGY NORMAL APPEARANCE (NORMAL); RBC MORPHOLOGY (MULTIPLE) NORMAL APPEARANCE (NORMAL)
[2022-08-22 15:13] LABS: DIFFERENTIAL COMMENT MANUA
[2022-08-22 15:42] LABS: ALBUMIN 4.2 g/dL (3.2-5.5); ALBUMIN/GLOBULIN RATIO 1.2 (1.0-2.2); BILIRUBIN,TOTAL 0.5 mg/dL (0.2-1.0); CALCIUM 9.4 mg/dL (8.5-10.3); CREATININE 0.8 mg/dL (0.4-1.0); POTASSIUM 4.4 mmol/L (3.5-5.0); TOTAL PROTEIN 7.7 g/dL (6.7-8.2)
--- NOTE | 2022-08-22 16:23 | ED Physician Documentation ---
History of Present Illness - Stated complaint Stated Complaint: DIZZY/FATIGUE - Chief complaint Chief Complaint: General - Additonal information Additional information: 42-year-old female comes into the emergency department for evaluation of generalized weakness fatigue and diarrhea. She completed her third round of chemotherapy for HER2 positive stage II breast cancer last week. She is on every 3-week cycles and is being managed by oncologist Dr. Richardson through [facility]. She has had no nausea or vomiting but has had about 4 watery stools a day. She is taking Imodium. She has a dry cough. No fevers. No pertinent past surgical history. Review of Systems Constitutional: reports: Fatigue. 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 HEENT: Chronic vision loss Psych: None Musculoskeletal: None Derm: None - Past Surgical History Past Surgical History: Yes General: 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: Dilation and currettage, Breast reduction, Other - Present Medications Home Medications: Ambulatory Orders Medication Instructions Recorded Confirmed Propranolol [Inderal] 10 mg PO BID 09/11/15 05/07/22 Albuterol Sulf [Ventolin Hfa 1 - 2 puffs INH Q4HR PRN #1 each 05/07/22 Inhaler] amLODIPine [Norvasc] 5 mg PO QPM 05/07/22 05/07/22 guaiFENesin/DEXTROMETHORPHAN 10 ml PO Q6HR PRN #120 ml 05/07/22 [Robitussin Dm] Azithromycin [Zithromax] 250 mg PO DAILY #6 tablet 05/16/22 Benzonatate [Tessalon] 200 mg PO TID PRN #30 cap 05/16/22 Cyclobenzaprine [Flexeril] 10 mg PO TID PRN #20 tablet 05/16/22 HYDROcod/ACETAM 5/325 [[place] 5/325] 1 - 2 tablet PO Q6H PRN #14 tablet 05/16/22 Azithromycin [Zithromax] 1 tab PO DAILY #4 tab 06/10/22 Cefdinir 300 mg PO BID #10 cap 06/10/22 HYDROcod/ACETAM 5/325 [[place] 5/325] 1 - 2 tab PO Q6H PRN #10 tablet 06/10/22 levoFLOXacin [Levaquin] 500 mg PO QD 7 Days #14 tablet 08/22/22 - Allergies Allergies/Adverse Reactions: Allergies Allergy/AdvReac Type Severity Reaction Status Date / Time amoxicillin Allergy Edema Verified 08/22/22 13:58 walnut Allergy Itching Verified 08/22/22 13:58 - Social History Does the pt smoke?: No Smoking Status: Never smoker Does the pt drink ETOH?: Yes Does the pt have substance abuse?: No - Immunizations Immunizations are current?: Yes - POLST Patient has POLST: No PD ED PE NORMAL - General General: Alert and oriented X 3, No acute distress, Well developed/nourished - Neck Neck: Supple, no meningeal sign, No adenopathy - Cardiac Cardiac: RRR, No murmur - Respiratory Respiratory: No respiratory distress, Clear bilaterally - Abdomen Abdomen: Normal bowel sounds, Soft, Non tender - Back Back: No CVA TTP, No spinal TTP - Derm Derm: Normal color, Warm and dry, No rash - Extremities Extremities: No deformity, No tenderness to palpate, Normal ROM s pain - Neuro Neuro: Alert and oriented X 3, veterans services specialist 2-12 intact Eye Opening: Spontaneous Motor: Obeys Commands Verbal: Oriented GCS Score: 15 Results - Vitals Vitals: Vital Signs - 24 hr 08/22/22 08/22/22 13:53 16:18 Temperature 36.5 C Heart Rate 114 H 108 H Respiratory 18 20 Rate Blood Pressure 137/96 H 138/99 H O2 Saturation 97 97 Oxygen O2 Source Room air - Labs Labs: Laboratory Tests 08/22/22 08/22/22 08/22/22 14:22 14:22 14:30 WBC 2.7 L RBC 4.30 Hgb 12.3 Hct 37.4 MCV 87.0 MCH 28.6 MCHC 32.9 RDW 14.6 Plt Count 313 MPV 9.8 Neut # (Auto) 0.4 L* Lymph # (Auto) 2.1 [place] # (Auto) 0.2 Eos # (Auto) 0.0 Baso # (Auto) 0.0 Absolute Nucleated RBC 0.00 Band Neuts % (Manual) Not Reportable Abnorm Lymph % (Manual) Not Reportable Nucleated RBC % 0.0 Neutrophils # (Manual) Not Reportable Lymphocytes # (Manual) Not Reportable Monocytes # (Manual) Not Reportable Eosinophils # (Manual) Not Reportable Basophils # (Manual) Not Reportable Differential Comment MANUA Platelet Estimate NORMAL (130-450,000) Platelet Morphology NORMAL APPEARANCE RBC Morph Micro Appear NORMAL APPEARANCE Sodium 136 Potassium 4.4 Chloride 101 Carbon Dioxide 25 Anion Gap 10.0 BUN 18 Creatinine 0.8 Estimated GFR (MDRD) 78 L Glucose 118 H Calcium 9.4 Total Bilirubin 0.5 AST 42 ALT 47 Alkaline Phosphatase 69 Total Protein 7.7 Albumin 4.2 Globulin 3.5 Albumin/Globulin Ratio 1.2 Lipase 30 Urine Color YELLOW Urine Clarity CLEAR Urine pH 7.0 Ur Specific [place] 1.020 Urine Protein 30 H Urine Glucose (UA) NEGATIVE Urine Ketones NEGATIVE Urine Occult Blood NEGATIVE Urine Nitrite NEGATIVE Urine Bilirubin NEGATIVE Urine Urobilinogen 0.2 (NORMAL) Ur Leukocyte Esterase NEGATIVE Urine RBC 0-5 Urine WBC 0-3 Ur Squamous Epith Cells MOD Squamous H Urine Bacteria Rare Ur Microscopic Review INDICATED Urine Culture Comments NOT INDICATED Nasal Adenovirus (PCR) Nasal B. parapertussis DNA (PCR) Nasal Coronavir 229E PCR Nasal Coronavir HKU1 PCR Nasal Coronavir NL63 PCR Nasal Coronavir OC43 PCR Nasal Enterovir/Rhinovir PCR Nasal Influenza B PCR Nasal Influenza A PCR Nasal Parainfluen 1 PCR Nasal Parainfluen 2 PCR Nasal Parainfluen 3 PCR Nasal Parainfluen 4 PCR Nasal RSV (PCR) Nasal B.pertussis DNA PCR Nasal C.pneumoniae (PCR) [place] Human Metapneumo PCR Nasal M.pneumoniae (PCR) Nasal SARS-CoV-2 (PCR) 08/22/22 16:16 WBC RBC Hgb Hct MCV MCH MCHC RDW Plt Count MPV Neut # (Auto) Lymph # (Auto) [place] # (Auto) Eos # (Auto) Baso # (Auto) Absolute Nucleated RBC Band Neuts % (Manual) Abnorm Lymph % (Manual) Nucleated RBC % Neutrophils # (Manual) Lymphocytes # (Manual) Monocytes # (Manual) Eosinophils # (Manual) Basophils # (Manual) Differential Comment Platelet Estimate Platelet Morphology RBC Morph Micro Appear Sodium Potassium Chloride Carbon Dioxide Anion Gap BUN Creatinine Estimated GFR (MDRD) Glucose Calcium Total Bilirubin AST ALT Alkaline Phosphatase Total Protein Albumin Globulin Albumin/Globulin Ratio Lipase Urine Color Urine Clarity Urine pH Ur Specific [place] Urine Protein Urine Glucose (UA) Urine Ketones Urine Occult Blood Urine Nitrite Urine Bilirubin Urine Urobilinogen Ur Leukocyte Esterase Urine RBC Urine WBC Ur Squamous Epith Cells Urine Bacteria Ur Microscopic Review Urine Culture Comments Nasal Adenovirus (PCR) NOT DETECTED Nasal B. parapertussis DNA (PCR) NOT DETECTED Nasal Coronavir 229E PCR NOT DETECTED Nasal Coronavir HKU1 PCR NOT DETECTED Nasal Coronavir NL63 PCR NOT DETECTED Nasal Coronavir OC43 PCR DETECTED A Nasal Enterovir/Rhinovir PCR NOT DETECTED Nasal Influenza B PCR NOT DETECTED Nasal Influenza A PCR NOT DETECTED Nasal Parainfluen 1 PCR NOT DETECTED Nasal Parainfluen 2 PCR NOT DETECTED Nasal Parainfluen 3 PCR NOT DETECTED Nasal Parainfluen 4 PCR NOT DETECTED Nasal RSV (PCR) NOT DETECTED Nasal B.pertussis DNA PCR NOT DETECTED Nasal C.pneumoniae (PCR) NOT DETECTED [place] Human Metapneumo PCR NOT DETECTED Nasal M.pneumoniae (PCR) NOT DETECTED Nasal SARS-CoV-2 (PCR) NOT DETECTED - Rads (name of study) cxr Radiology: EMP read indepedently (No acute cardiopulmonary process) PD Medical Decision Making - ED course Complexity details: considered differential, d/w patient, d/w risk control consultant (Dr. richardson oncology) ED course: 42-year-old female who is currently undergoing chemotherapy for HER2 positive breast cancer presents to the emergency department with 1 week of generalized fatigue. She is endorsing diarrhea about 4 watery stools a day for which she is taking Imodium. On the advice of the nurse line she presents to the ER. She has had no fevers. Here in the emergency department she appears well. She does have some very mild tachycardia with a heart rate of 108. She is normotensive. Her cardiopulmonary exam and abdominal exam were benign. We did obtain a CBC that showed marked Leukopenia with a white count of 2.7 and an ANC of 0.4. Her blood chemistry was essentially unremarkable. Urine and chest x-ray showed no markers of infection, pneumonia. Here in the emergency department we did obtain blood cultures which are pending. I did administer a liter of fluid given the reported diarrhea for the last week. Respiratory PCR panel has resulted positive for coronavirus though not COVID-19. This was discussed with the patient and her . We discussed that with this she could experience some mild cold-like symptoms. Chest x-ray completed today in the emergency department showed no findings of pneumonia, pleural effusion cardiomegaly or volume overload I briefly discussed this case with Dr. Richardson the patient's oncologist has [facility]. Given that she has no fevers or other findings of infection at this time she would not need to be admitted for febrile neutropenia. He however would make the recommendation to begin her on a 1 week long course of Levaquin 500 mg daily. Obviously if her blood cultures returned positive she would return to the ER for further evaluation and admission. I have discussed this plan and findings with the patient and her at the bedside and they are in agreement. Departure - Departure Disposition: 01 Home, Self Care Clinical Impression: Chemotherapy induced diarrhea, Coronavirus infection Fatigue Qualifiers: Fatigue type: unspecified Qualified Code(s): R53.83 - Other fatigue Neutropenia Qualifiers: Neutropenia type: unspecified Qualified Code(s): D70.9 - Neutropenia, unspecified Condition: Serious Record reviewed to determine appropriate education?: Yes Prescriptions: levoFLOXacin [Levaquin] 500 mg PO QD 7 Days #14 tablet Comments: Rossana you came to the emergency department today because for about a week you have been feeling weak fatigued and dizzy. You are undergoing chemotherapy for the treatment of breast cancer. You have not had any fevers. You have been having some diarrhea. This is a common complication of chemotherapy. If your diarrhea becomes bloody, is accompanied by fevers or uncontrolled abdominal pain or vomiting you should return to the ER. Here in the ER we did obtain routine CBC, electrolytes and a urinalysis. We do see that you have a decreased white blood cell count and neutrophil count. This is common in chemotherapy. A reduced white blood cell count does leave you prone to develop infections. However you do not have any fevers and there is no indication at this time to admit you to the hospital. If you develop fevers you must return immediately. If your blood cultures are positive we will call you to return to the hospital. I did discuss your case with Dr. Richardson the oncologist. He would like you to continue your usual care at home but he does make the recommendation that we start you on a week of Levaquin which is an antibiotic. This is being done prophylactically. It is important you continue to follow closely with your oncology team at [facility]. Again if you develop any worsening symptoms, develop any fevers, you do need to return immediately to the ER.
[2022-08-22] MEDS ORDERED: levoFLOXacin 250 MG TABLET PO STA (16:29)
[2022-08-22] MEDS ORDERED: SODIUM CHLORIDE 0.9% 1,000 ML IV ONE (17:20)
--- NOTE | 2022-08-22 17:23 | XRAY Report ---
PROCEDURE: Chest 1 View X-Ray INDICATIONS: chest pain TECHNIQUE: One view of the chest was acquired. COMPARISON: 08/10/2021. FINDINGS: Surgical changes and devices: Right chest Port-A-Cath Lungs and pleura: No pleural effusions or pneumothorax. Lungs are clear. Mediastinum: Mediastinal contours appear normal. Heart size is normal. Bones and chest wall: No suspicious bony lesions. Overlying soft tissues appear unremarkable. IMPRESSION: No evidence acute pulmonary process. Reviewed by: Jorge Cruz MD on 08/22/2022 5:22 PM PST Approved by: Jorge Cruz MD on 08/22/2022 5:22 PM PST Station ID: [id number]
[2022-08-22 17:26] LABS: B. PARAPERTUSSIS- RESP PCR PAN NOT DETECTED; B. PERTUSSIS- RESP PCR PANEL NOT DETECTED; C. PNEUMONIAE- RESP PCR PANEL NOT DETECTED; CORONAVIRUS 229E-RESP PCR NOT DETECTED; CORONAVIRUS HKU1-RESP PCR NOT DETECTED; CORONAVIRUS NL63-RESP PCR NOT DETECTED; CORONAVIRUS OC43-RESP PCR DETECTED; HUMAN METAPNEUMOVIRUS NOT DETECTED; INFLUENZA A- RESP PCR PANEL NOT DETECTED; INFLUENZA B - RESP PCR PANEL NOT DETECTED; M. PNEUMONIAE- RESP PCR PANEL NOT DETECTED; PARAINFLUENZA VIRUS 1 NOT DETECTED; PARAINFLUENZA VIRUS 2 NOT DETECTED; PARAINFLUENZA VIRUS 3 NOT DETECTED; PARAINFLUENZA VIRUS 4 NOT DETECTED; RHINOVIRUS/ENTEROVIRUS NOT DETECTED; RSV- RESP PCR PANEL NOT DETECTED; SARS-CoV-2 -RESP PCR PANEL NOT DETECTED
[2022-08-22 18:32] VITALS: BP 129/87
== END 2022-08-22 18:32 | disposition home or self-care (01) ==
LOC: ED 13:37
DX: R19.7 Diarrhea, unspecified (principal); T45.1X5A Adverse effect of antineoplastic and immunosuppressive drugs, initial encounter; C50.919 Malignant neoplasm of unspecified site of unspecified female breast; Z17.0 Estrogen receptor positive status [ER+]; U07.1 COVID-19; D70.9 Neutropenia, unspecified; I10 Essential (primary) hypertension
CPT/HCPCS: 36415; 71045; 80053; 81001; 83690; 85025; 87040; 87633; 96361; 96374; 99284; 99285; A9270; 81003; 87086

== ENCOUNTER 2023-02-05 14:14 | Emergency (ER) | payer OTHER ==
--- NOTE | 2023-02-05 15:17 | ED Physician Documentation ---
PD HPI HEENT - Stated complaint Stated Complaint: LT EYE INJ - Chief complaint Chief Complaint: Heent - History obtained from History obtained from: Patient (She was camping recently and dabbed her left eye with a paper towel and now has a large inflamed red area there. Vision is unaffected. 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: Miscarriage(s) : None HEENT: Chronic vision loss Psych: None Musculoskeletal: None Derm: None - Past Surgical History Past Surgical History: Yes General: Cholecystectomy /BANK MESSENGER: Dilation and currettage, Breast reduction, Other - Present Medications Home Medications: Ambulatory Orders Medication Instructions Recorded Confirmed Propranolol [Inderal] 10 mg PO BID 09/11/15 05/07/22 Albuterol Sulf [Ventolin Hfa 1 - 2 puffs INH Q4HR PRN #1 each 05/07/22 Inhaler] amLODIPine [Norvasc] 5 mg PO QPM 05/07/22 05/07/22 guaiFENesin/DEXTROMETHORPHAN 10 ml PO Q6HR PRN #120 ml 05/07/22 [Robitussin Dm] Azithromycin [Zithromax] 250 mg PO DAILY #6 tablet 05/16/22 Benzonatate [Tessalon] 200 mg PO TID PRN #30 cap 05/16/22 Cyclobenzaprine [Flexeril] 10 mg PO TID PRN #20 tablet 05/16/22 HYDROcod/ACETAM 5/325 [Toney 5/325] 1 - 2 tablet PO Q6H PRN #14 tablet 05/16/22 Azithromycin [Zithromax] 1 tab PO DAILY #4 tab 06/10/22 Cefdinir 300 mg PO BID #10 cap 06/10/22 HYDROcod/ACETAM 5/325 [Toney 5/325] 1 - 2 tab PO Q6H PRN #10 tablet 06/10/22 levoFLOXacin [Levaquin] 500 mg PO QD 7 Days #14 tablet 08/22/22 - Allergies Allergies/Adverse Reactions: Allergies Allergy/AdvReac Type Severity Reaction Status Date / Time amoxicillin Allergy Edema Verified 02/05/23 14:46 walnut Allergy Itching Verified 02/05/23 14:46 - Social History Does the pt smoke?: No Smoking Status: Never smoker Does the pt drink ETOH?: Yes Does the pt have substance abuse?: No - Immunizations Immunizations are current?: Yes - POLST Patient has POLST: No PD ED PE NORMAL - Vitals Vital signs reviewed: Yes - General General: Alert and oriented X 3, No acute distress - HEENT HEENT: PERRL, EOMI, Other (There is a large left lateral lower subconjunctival hemorrhage, fluorescein exam is negative.) - Neuro Neuro: Alert and oriented X 3, Normal speech Results - Vitals Vitals: Vital Signs - 24 hr 02/05/23 14:46 Temperature 36.5 C Heart Rate 82 Respiratory 16 Rate Blood Pressure 138/97 H O2 Saturation 100 Oxygen O2 Source Room air Departure - Departure Disposition: 01 Home, Self Care Clinical Impression: Subconjunctival hemorrhage Qualifiers: Laterality: left Qualified Code(s): H11.32 - Conjunctival hemorrhage, left eye Condition: Good Record reviewed to determine appropriate education?: Yes Instructions: ED Eye Injury Subconj Hemorrhage Follow-Up: Calvin Johnson MD [Provider Admit Priv/Credential] - Comments: No specific follow-up is required, that said if you worsen or want to have a second opinion there is the name of a local funnel setter that you can call on this form.
[2023-02-05 15:28] VITALS: BP 114/86
== END 2023-02-05 15:44 | disposition home or self-care (01) ==
LOC: ED 14:14
DX: H11.32 Conjunctival hemorrhage, left eye (principal); I10 Essential (primary) hypertension; Z79.899 Other long term (current) drug therapy
CPT/HCPCS: 99281; 99283

== ENCOUNTER 2023-03-01 17:13 | Emergency (ER) | payer OTHER ==
--- NOTE | 2023-03-01 17:52 | ED Physician Documentation ---
History of Present Illness - Stated complaint Stated Complaint: PORT IN CHEST PX - Chief complaint Chief Complaint: General - History obtained from History obtained from: Patient (42-year-old woman undergoing treatment for stage IV breast cancer. Her port which is in the right upper chest wall was accessed 8 days ago. For the last 6 days or so she has had pain of the port. There is no fever. 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: Dilation and currettage, Breast reduction, Other - Present Medications Home Medications: Ambulatory Orders Medication Instructions Recorded Confirmed Propranolol [Inderal] 10 mg PO BID 09/11/15 05/07/22 Albuterol Sulf [Ventolin Hfa 1 - 2 puffs INH Q4HR PRN #1 each 05/07/22 Inhaler] amLODIPine [Norvasc] 5 mg PO QPM 05/07/22 05/07/22 guaiFENesin/DEXTROMETHORPHAN 10 ml PO Q6HR PRN #120 ml 05/07/22 [Robitussin Dm] Azithromycin [Zithromax] 250 mg PO DAILY #6 tablet 05/16/22 Benzonatate [Tessalon] 200 mg PO TID PRN #30 cap 05/16/22 Cyclobenzaprine [Flexeril] 10 mg PO TID PRN #20 tablet 05/16/22 HYDROcod/ACETAM 5/325 [Elma 5/325] 1 - 2 tablet PO Q6H PRN #14 tablet 05/16/22 Azithromycin [Zithromax] 1 tab PO DAILY #4 tab 06/10/22 Cefdinir 300 mg PO BID #10 cap 06/10/22 HYDROcod/ACETAM 5/325 [Elma 5/325] 1 - 2 tab PO Q6H PRN #10 tablet 06/10/22 levoFLOXacin [Levaquin] 500 mg PO QD 7 Days #14 tablet 08/22/22 HYDROcod/ACETAM 5/325 [Elma 5/325] 1 - 2 tab PO Q6H PRN #10 tablet 03/01/23 - Allergies Allergies/Adverse Reactions: Allergies Allergy/AdvReac Type Severity Reaction Status Date / Time amoxicillin Allergy Edema Verified 02/05/23 14:46 walnut Allergy Itching Verified 02/05/23 14:46 - Social History Does the pt smoke?: No Smoking Status: Never smoker Does the pt drink ETOH?: Yes Does the pt have substance abuse?: No - Immunizations Immunizations are current?: Yes - POLST Patient has POLST: No PD ED PE NORMAL - Vitals Vital signs reviewed: Yes - General General: Alert and oriented X 3, No acute distress - Cardiac Cardiac: Other (Palpable PowerPort right upper chest wall that is tender but no warmth or redness.) - Neuro Neuro: Alert and oriented X 3, Normal speech Results - Vitals Vitals: Vital Signs - 24 hr 03/01/23 17:21 Temperature 36.5 C Heart Rate 80 Respiratory 16 Rate Blood Pressure 130/80 O2 Saturation 99 Oxygen O2 Source Room air - Labs Labs: Laboratory Tests 03/01/23 03/01/23 18:02 18:02 WBC 7.6 RBC 4.58 Hgb 12.2 Hct 39.3 MCV 85.8 MCH 26.6 L MCHC 31.0 L RDW 14.3 Plt Count 237 MPV 10.2 Neut # (Auto) 4.5 Lymph # (Auto) 2.4 Leslie # (Auto) 0.5 Eos # (Auto) 0.2 Baso # (Auto) 0.0 Absolute Nucleated RBC 0.00 Nucleated RBC % 0.0 Sodium 139 Potassium 3.6 Chloride 103 Carbon Dioxide 29 Anion Gap 7.0 BUN 10 Creatinine 0.8 Estimated GFR (MDRD) 78 L Glucose 116 H Calcium 9.9 PD Medical Decision Making - ED course ED course: She has pain of her port and she is worried that it might be infected. It does not appear clinically infected. She has no fever here, and her CBC is notable for a white count of 7 and her BMP is normal. She was reassured. Departure - Departure Disposition: 01 Home, Self Care Clinical Impression: Encounter for central line care Condition: Good Record reviewed to determine appropriate education?: Yes Prescriptions: HYDROcod/ACETAM 5/325 [Elma 5/325] 1 - 2 tab PO Q6H PRN #10 tablet PRN Reason: Pain Comments: I sent the prescription electronically [facility] [place]. Your white count was 7 which is reassuring that there is no port infection. That said, if you develop a fever defined as a temperature 100.4 F or greater please return for reevaluation. We do have blood cultures pending, and if they are positive we will call you. I am prescribing a short course of narcotic pain medication for you. These are potentially dangerous and addictive medications that should be used carefully. These medications may constipate you. Take an hukt-wxm-ubklbvf stool softener (docusate) twice daily with plenty of water while taking these medications. If you go 24 hours without a bowel movement, take [id number]-[id number] miralax, per package instructions. Do not drink or drive while taking these medications. If you received narcotic or sedating medications while in the emergency department, do not drive for 24 hours. Store this medication in a safe, secure place and out of reach of children. It is a violation of federal law to give or sell this medication to another person or to use in a manner other than prescribed. The ED will not refill narcotic prescriptions, including prescriptions lost or stolen. To dispose of unwanted medications: 1. [facility] provides a drop box for medication in pill form only (no liquids) 8:00 am to 4:30 p.m. Saturday-Saturday in the lobby of the [facility], [address] [place] [address]. Empty pills into ziplock bag before disposal. Call [phone] for information. 2.[employer] is a free service available to all [facility] residents. Go to [email or web address] Note that many narcotic pain relievers also contain Tylenol/acetaminophen. Please ensure that your total dose of acetaminophen from all sources does not exceed 3 g (3000 mg) per day. Forms: PCP List
[2023-03-01 18:14] LABS: BASOPHILS % (AUTO) 0.4 %; EOSINOPHILS # (AUTO) 0.2 10^3/uL (0.0-0.7); EOSINOPHILS % (AUTO) 3.2 %; HCT - HEMATOCRIT 39.3 % (37.0-47.0); HGB - HEMOGLOBIN 12.2 g/dL (12.0-16.0); LYMPHOCYTES # (AUTO) 2.4 10^3/uL (1.5-3.5); LYMPHOCYTES % (AUTO) 31.5 %; MEAN CORPUSCULAR HEMOGLOBIN 26.6 pg (27.0-31.0); MEAN CORPUSCULAR VOLUME 85.8 fL (81.0-99.0); MEAN PLATELET VOLUME 10.2 fL (7.9-10.8); MONOCYTES # (AUTO) 0.5 10^3/uL (0.0-1.0); MONOCYTES % (AUTO) 5.9 %; NEUTROPHILS # (AUTO) 4.5 10^3/uL (1.5-6.6); NEUTROPHILS % (AUTO) 58.7 %; PLT - PLATELET COUNT 237 10^3/uL (130-450); RED BLOOD COUNT 4.58 10^6/uL (4.20-5.40); RED CELL DISTRIBUTION WIDTH 14.3 % (12.0-15.0); WHITE BLOOD COUNT 7.6 x10^3/uL (4.8-10.8)
[2023-03-01 18:29] LABS: CALCIUM 9.9 mg/dL (8.5-10.3); CREATININE 0.8 mg/dL (0.6-1.3); POTASSIUM 3.6 mmol/L (3.5-4.5)
[2023-03-01 19:11] VITALS: BP 137/74
== END 2023-03-01 19:00 | disposition home or self-care (01) ==
LOC: ED 17:13
DX: Z45.2 Encounter for adjustment and management of vascular access device (principal)
CPT/HCPCS: 36415; 80048; 85025; 87040; 99283

== ENCOUNTER 2023-05-20 19:05 | Emergency (ER) | payer OTHER ==
[2023-05-20 19:25] VITALS: BP 142/85; O2SAT 96
--- NOTE | 2023-05-20 19:59 | XRAY Report ---
PROCEDURE: Hand 3 View RT INDICATIONS: Trauma TECHNIQUE: 3 views of the hand(s) acquired. COMPARISON: None. FINDINGS: Bones: No fractures or dislocations. No suspicious bony lesions. Soft tissues: No suspicious soft tissue calcifications or masses. IMPRESSION: No acute bony abnormality. Reviewed by: Finesse Dahl MD on 05/20/2023 7:58 PM PDT Approved by: Finesse Dahl MD on 05/20/2023 7:58 PM PDT Station ID: [id number]
[2023-05-20] MEDS ORDERED: HYDROcod/ACETAM 5/325 MG TABLET PO STA (21:21)
--- NOTE | 2023-05-20 21:23 | ED Physician Documentation ---
History of Present Illness - Stated complaint Stated Complaint: R HAND INJ - Chief complaint Chief Complaint: Trauma Ext - Additonal information Additional information: 42-year-old female here for acute right hand pain. Accidentally slammed her hand in a car door mostly the thumb and thenar eminence region. [id number]. No history of previous injury. Currently undergoing chemotherapy. 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) : None HEENT: Chronic vision loss Psych: None Musculoskeletal: None Derm: None - Past Surgical History Past Surgical History: Yes General: Cholecystectomy /SHEET ROCK SANDER: Dilation and currettage, Breast reduction, Other - Present Medications Home Medications: Ambulatory Orders Medication Instructions Recorded Confirmed Propranolol [Inderal] 10 mg PO BID 09/11/15 05/07/22 Albuterol Sulf [Ventolin Hfa 1 - 2 puffs INH Q4HR PRN #1 each 05/07/22 Inhaler] amLODIPine [Norvasc] 5 mg PO QPM 05/07/22 05/07/22 guaiFENesin/DEXTROMETHORPHAN 10 ml PO Q6HR PRN #120 ml 05/07/22 [Robitussin Dm] Azithromycin [Zithromax] 250 mg PO DAILY #6 tablet 05/16/22 Benzonatate [Tessalon] 200 mg PO TID PRN #30 cap 05/16/22 Cyclobenzaprine [Flexeril] 10 mg PO TID PRN #20 tablet 05/16/22 HYDROcod/ACETAM 5/325 [Paragonah 5/325] 1 - 2 tablet PO Q6H PRN #14 tablet 05/16/22 Azithromycin [Zithromax] 1 tab PO DAILY #4 tab 06/10/22 Cefdinir 300 mg PO BID #10 cap 06/10/22 HYDROcod/ACETAM 5/325 [Paragon[place] 5/325] 1 - 2 tab PO Q6H PRN #10 tablet 06/10/22 levoFLOXacin [Levaquin] 500 mg PO QD 7 Days #14 tablet 08/22/22 HYDROcod/ACETAM 5/325 [Paragon[place] 5/325] 1 - 2 tab PO Q6H PRN #10 tablet 03/01/23 HYDROcod/ACETAM 5/325 [Paragon[place] 5/325] 1 tablet PO BID PRN #10 tablet 05/20/23 - Allergies Allergies/Adverse Reactions: Allergies Allergy/AdvReac Type Severity Reaction Status Date / Time amoxicillin Allergy Edema Verified 02/05/23 14:46 walnut Allergy Itching Verified 02/05/23 14:46 - Social History Does the pt smoke?: No Smoking Status: Never smoker Does the pt drink ETOH?: Yes Does the pt have substance abuse?: No - Immunizations Immunizations are current?: Yes - POLST Patient has POLST: No PD ED PE EXPANDED - Extremities Extremities: Right hand (No swelling or deformity. Tenderness on the dorsum of the left thumb proximal to the MCP joint. Positive anatomic snuffbox tenderness. Neurovascular intact. Can make a full grasp.) Results - Vitals Vitals: Vital Signs - 24 hr 05/20/23 19:18 Temperature 36.7 C Heart Rate 73 Respiratory 20 Rate Blood Pressure 142/85 H O2 Saturation 96 Oxygen O2 Source Room air - Rads (name of study) right hand Relevant Findings:: Final report received (No acute fracture or osseous lesion or dislocation) PD Medical Decision Making - ED course Complexity details: reviewed results, d/w patient ED course: She slammed her right hand in a car door and now has pain over the region of the thumb and thenar eminence. Positive snuffbox tenderness. X-ray was negative. She will be placed in a Velcro thumb spica splint. Recommended Tylenol. Limited prescription for Paragonah will be sent to her preferred pharmacy. Advised that if pain not markedly better in 7 to 10 days time to have repeat imaging obtained to rule out occult scaphoid fracture. Departure - Departure Disposition: 01 Home, Self Care Clinical Impression: Right wrist pain Condition: Stable Prescriptions: HYDROcod/ACETAM 5/325 [Paragonah 5/325] 1 tablet PO BID PRN #10 tablet PRN Reason: Pain Comments: Rossana the x-ray of your hand does not show any acute fractures. However you have pain over an area of the wrist called the snuffbox and subtle acute fractures can be missed on initial imaging. Please wear the thumb spica splint at all times for the next week with the exception of showering. Would recommend that you take Tylenol for discomfort. For more severe pain a limited amount of hydrocodone has been sent to preferred pharmacy. Please follow-up with your primary care doctor for repeat imaging in 7 to 10 days if your pain is not markedly improved. I am prescribing a short course of narcotic pain medication for you. These are potentially dangerous and addictive medications that should be used carefully. These medications may constipate you. Take an ynea-rts-bvrdkbw stool softener (docusate) twice daily with plenty of water while taking these medications. If you go 24 hours without a bowel movement, take xltz-bzs-mhbbqnf miralax, per package instructions. Do not drink or drive while taking these medications. If you received narcotic or sedating medications while in the emergency department, do not drive for 24 hours. Store this medication in a safe, secure place and out of reach of children. It is a violation of federal law to give or sell this medication to another person or to use in a manner other than prescribed. The ED will not refill narcotic prescriptions, including prescriptions lost or stolen. To dispose of unwanted medications: 1. [facility] at [address] [facility] in [place] has a medication drop box. They accept prescription medications (in pill form) Saturday through Saturday 9:00 a.m. to 5:00 p.m. 2. The [facility] [employer] accepts prescription medications (in pill form only) for disposal year round. Call for more information. 3. Contact the [facility] for the next [facility] sponsored prescription drug collection event. , [phone], or [phone]; Note that many narcotic pain relievers also contain Tylenol/acetaminophen. Please ensure that your total dose of acetaminophen from all sources does not exceed 3 g (3000 mg) per day.
== END 2023-05-20 22:32 | disposition home or self-care (01) ==
LOC: ED 19:05
DX: M25.531 Pain in right wrist (principal)
CPT/HCPCS: 73130; 99283; A9270

== ENCOUNTER 2024-04-11 14:39 | Emergency (ER) | payer OTHER ==
--- NOTE | 2024-04-11 15:01 | ED Physician Documentation ---
History of Present Illness - Stated complaint Stated Complaint: ABD PX,NAUSEOUS,DIZZY - Chief complaint Chief Complaint: Abd Pain - History obtained from History obtained from: Patient - Additonal information Additional information: Patient is a 43-year-old female presenting to the emergency department with abdominal pain in the epigastric region midline and nausea. She notes a few episodes of vomiting about 3 a day associate with her symptoms. Her past medical history is remarkable for stage IV breast cancer. Patient follows with oncology in [facility]. She has had a history of breast cancer since 2021. She has gone through 17 rounds of chemotherapy but recurrent breast cancer noted in left lymph node and patient was restarted on chemotherapy back in February. She notes since then she continues to have persistent nausea with this medication.Patient notes epigastric pain after eating and drinking at home. She denies any symptoms at rest. She describes as a burning sensation. She has past medical history remarkable for cholecystectomy but no other abdominal surgeries. Patient was told to come in by her oncologist given lightheadedness symptoms and nausea symptoms despite taking Compazine and Zofran at home. PD PAST MEDICAL HISTORY - Past Medical History Past Medical History: Yes Cardiovascular: Hypertension Respiratory: Asthma Neuro: Headaches, Migraines, Motion sickness Endocrine/Autoimmune: Other GI: None INSEAMER: Miscarriage(s) : None HEENT: Chronic vision loss Psych: None Musculoskeletal: None Derm: None - Past Surgical History Past Surgical History: Yes General: Cholecystectomy /INSEAMER: Dilation and currettage, Breast reduction, Other - Present Medications Home Medications: Ambulatory Orders Medication Instructions Recorded Confirmed Propranolol [Inderal] 10 mg PO BID 09/11/15 05/07/22 Albuterol Sulf [Ventolin Hfa 1 - 2 puffs INH Q4HR PRN #1 each 05/07/22 Inhaler] amLODIPine [Norvasc] 5 mg PO QPM 05/07/22 05/07/22 guaiFENesin/DEXTROMETHORPHAN 10 ml PO Q6HR PRN #120 ml 05/07/22 [Robitussin Dm] Azithromycin [Zithromax] 250 mg PO DAILY #6 tablet 05/16/22 Benzonatate [Tessalon] 200 mg PO TID PRN #30 cap 05/16/22 Cyclobenzaprine [Flexeril] 10 mg PO TID PRN #20 tablet 05/16/22 HYDROcod/ACETAM 5/325 [Shubuta 5/325] 1 - 2 tablet PO Q6H PRN #14 tablet 05/16/22 Azithromycin [Zithromax] 1 tab PO DAILY #4 tab 06/10/22 Cefdinir 300 mg PO BID #10 cap 06/10/22 HYDROcod/ACETAM 5/325 [Shubuta 5/325] 1 - 2 tab PO Q6H PRN #10 tablet 06/10/22 levoFLOXacin [Levaquin] 500 mg PO QD 7 Days #14 tablet 08/22/22 HYDROcod/ACETAM 5/325 [Shubuta 5/325] 1 - 2 tab PO Q6H PRN #10 tablet 03/01/23 HYDROcod/ACETAM 5/325 [Shubuta 5/325] 1 tablet PO BID PRN #10 tablet 05/20/23 Meclizine [Antivert] 12.5 mg PO BID #20 tablet 04/11/24 - Allergies Allergies/Adverse Reactions: Allergies Allergy/AdvReac Type Severity Reaction Status Date / Time amoxicillin Allergy Edema Verified 04/11/24 14:42 walnut Allergy Itching Verified 04/11/24 14:42 - Social History Does the pt smoke?: No Smoking Status: Never smoker Does the pt drink ETOH?: Yes Does the pt have substance abuse?: No - Immunizations Immunizations are current?: Yes - POLST Patient has POLST: No PD ED PE NORMAL - Vitals Vital signs reviewed: Yes - General General: Alert and oriented X 3 - HEENT HEENT: Atraumatic - Neck Neck: Supple, no meningeal sign - Cardiac Cardiac: RRR, No murmur, No gallop, No rub, Strong equal pulses - Respiratory Respiratory: No respiratory distress, Other (Diminished breath sounds on auscultation no appreciable expiratory wheeze on examination. No acute respiratory distress.) - Abdomen Abdomen: Normal bowel sounds, Soft, Non tender, Non distended - Back Back: No CVA TTP, No spinal TTP - Neuro Neuro: Alert and oriented X 3 Eye Opening: Spontaneous Motor: Obeys Commands Verbal: Oriented GCS Score: 15 Results - Vitals Vitals: Vital Signs - 24 hr 04/11/24 04/11/24 04/11/24 14:42 16:46 18:00 Temperature 36.8 C Heart Rate 92 83 78 Respiratory 16 14 18 Rate Blood Pressure 130/90 H 124/83 H 124/85 H O2 Saturation 98 98 100 04/11/24 19:02 Temperature Heart Rate 78 Respiratory 18 Rate Blood Pressure 136/84 H O2 Saturation 100 Oxygen O2 Source Room air - EKG (time done) 1508 EKG releavant findings:: EKG personally interpreted by author of this note. Relevant findings are: Rate: Rate (enter#), Cole, Tachy, Other Rhythm: NSR [place]: Normal Intervals: Normal MI QRS: Normal Ischemia: Normal ST segments Compare to prior EKG: Unchanged from prior EKG Computer interpretation: Agree with computer - Labs Labs: Laboratory Tests 04/11/24 04/11/24 04/11/24 15:15 15:15 15:15 WBC 10.7 RBC 4.28 Hgb 12.4 Hct 38.0 MCV 88.8 MCH 29.0 MCHC 32.6 RDW 16.3 H Plt Count 247 MPV 9.9 Neut # (Auto) 5.9 Lymph # (Auto) 3.9 H [facility] # (Auto) 0.5 Eos # (Auto) 0.2 Baso # (Auto) 0.1 Absolute Nucleated RBC 0.03 Nucleated RBC % 0.3 Sodium 139 Potassium 4.0 Chloride 103 Carbon Dioxide 29 Anion Gap 7.0 BUN 14 Creatinine 1.0 Estimated GFR (MDRD) 60 L Glucose 85 Calcium 9.7 Magnesium 1.4 L Total Bilirubin 0.5 AST 47 H ALT 64 H Alkaline Phosphatase 84 Total Protein 6.8 Albumin 4.1 Globulin 2.7 Albumin/Globulin Ratio 1.5 Lipase 13 Urine Color Urine Clarity Urine pH Ur Specific [place] Urine Protein Urine Glucose (UA) Urine Ketones Urine Occult Blood Urine Nitrite Urine Bilirubin Urine Urobilinogen Ur Leukocyte Esterase Ur Microscopic Review Urine Culture Comments 04/11/24 18:05 WBC RBC Hgb Hct MCV MCH MCHC RDW Plt Count MPV Neut # (Auto) Lymph # (Auto) [facility] # (Auto) Eos # (Auto) Baso # (Auto) Absolute Nucleated RBC Nucleated RBC % Sodium Potassium Chloride Carbon Dioxide Anion Gap BUN Creatinine Estimated GFR (MDRD) Glucose Calcium Magnesium Total Bilirubin AST ALT Alkaline Phosphatase Total Protein Albumin Globulin Albumin/Globulin Ratio Lipase Urine Color YELLOW Urine Clarity CLEAR Urine pH 7.5 Ur Specific [place] 1.010 Urine Protein NEGATIVE Urine Glucose (UA) NEGATIVE Urine Ketones NEGATIVE Urine Occult Blood NEGATIVE Urine Nitrite NEGATIVE Urine Bilirubin NEGATIVE Urine Urobilinogen 0.2 (NORMAL) Ur Leukocyte Esterase NEGATIVE Ur Microscopic Review NOT INDICATED Urine Culture Comments NOT INDICATED PD Medical Decision Making - ED course Complexity details: reviewed old records, reviewed results, re-evaluated patient ED course: Patient is a 43-year-old female presenting to the emergency department with abdominal pain in the epigastric region midline and nausea. She notes a few episodes of vomiting about 3 a day associate with her symptoms. Her past medical history is remarkable for stage IV breast cancer. Patient follows with oncology in [facility]. She has had a history of breast cancer since 2021. She has gone through 17 rounds of chemotherapy but recurrent breast cancer noted in left lymph node and patient was restarted on chemotherapy back in February. Labs here in the emergency department showed no signs of leukopenia neutropenia or leukocytosis. The patient's electrolytes are stable and no significant GEORGES. Creatinine slightly elevated at 1 baseline closer to 0.8. Patient receiving 1 L of fluids here in emergency department.CT abdomen pelvis shows No CT evidence for etiology of the patient's symptoms. Specifically, no evidence of pancreatitis, however CT is insensitive for acute pancreatitis. Reevaluated patient here in emergency department after receiving oral meclizine and fluids here in emergency department. She notes her dizziness symptoms resolved she denies any persistent nausea symptoms. She has been able to tolerate p.o. here in emergency department. Patient feels safe to go home. Discussed with patient concerning findings for dehydration on examination she will follow-up with her PCP in the outpatient setting. Urine analysis shows no signs of UTI. Pending respiratory panel at this time we will call patient on these results and update her however no other acute inventions needed at this time. Patient will start on meclizine at home as this is not a QTc prolonged or however QTc is within normal range on EKG here in emergency department. Departure - Departure Disposition: 01 Home, Self Care Clinical Impression: Nausea and vomiting, Chemotherapy induced nausea and vomiting, Dehydration Condition: Good Prescriptions: Meclizine [Antivert] 12.5 mg PO BID #20 tablet Comments: You were seen here in the emergency department for your nausea vomiting symptoms. Your workup here showed mild signs of dehydration but otherwise reassuring findings including no signs of UTI no signs of acute findings on your CT scan. I have given you follow-up with your oncologist within the next week or 2 for reevaluation and possible second liter of fluids. If he have persistent nausea vomiting symptoms if you develop any fevers or chills. You should return to the emergency department. Please follow-up with your PCP in the outpatient setting to ensure resolution of symptoms. Please take meclizine for any lightheadedness nausea symptoms. Forms: PCP List Discharge Date/Time: 04/11/24 19:02
[2024-04-11] MEDS: SODIUM CHLORIDE 0.9% 1,000 ML IV STA (15:22)
[2024-04-11 15:23] LABS: BASOPHILS # (AUTO) 0.1 10^3/uL (0.0-0.1); BASOPHILS % (AUTO) 0.7 %; EOSINOPHILS # (AUTO) 0.2 10^3/uL (0.0-0.7); EOSINOPHILS % (AUTO) 2.1 %; HGB - HEMOGLOBIN 12.4 g/dL (12.0-16.0); LYMPHOCYTES # (AUTO) 3.9 10^3/uL (1.5-3.5); LYMPHOCYTES % (AUTO) 36.3 %; MEAN CORPUSCULAR HGB CONC 32.6 g/dL (32.0-36.0); MEAN CORPUSCULAR VOLUME 88.8 fL (81.0-99.0); MEAN PLATELET VOLUME 9.9 fL (7.9-10.8); MONOCYTES # (AUTO) 0.5 10^3/uL (0.0-1.0); MONOCYTES % (AUTO) 4.9 %; NEUTROPHILS # (AUTO) 5.9 10^3/uL (1.5-6.6); NEUTROPHILS % (AUTO) 55.4 %; NRBC ABSOLUTE COUNT (AUTO) 0.03 x10^3/uL; NUCLEATED RED BLOOD CELLS AUTO 0.3 /100WBC; PLT - PLATELET COUNT 247 10^3/uL (130-450); RED BLOOD COUNT 4.28 10^6/uL (4.20-5.40); RED CELL DISTRIBUTION WIDTH 16.3 % (12.0-15.0); WHITE BLOOD COUNT 10.7 x10^3/uL (4.8-10.8)
[2024-04-11 15:36] LABS: ALBUMIN 4.1 g/dL (3.2-5.5); ALBUMIN/GLOBULIN RATIO 1.5 (1.0-2.2); BILIRUBIN,TOTAL 0.5 mg/dL (0.2-1.0); CALCIUM 9.7 mg/dL (8.5-10.3); MAGNESIUM 1.4 mg/dL (1.7-2.3); TOTAL PROTEIN 6.8 g/dL (6.4-8.9)
[2024-04-11] MEDS ORDERED: iohexoL-300 100 ML VIAL ONE (16:35)
[2024-04-11] MEDS: iohexoL-300 100 ML VIAL IVP ONE (17:03)
--- NOTE | 2024-04-11 17:22 | CT Report ---
PROCEDURE: Abdomen/Pelvis W INDICATIONS: epigastric pain, concern for pancreatitis TECHNIQUE: After the administration of intravenous contrast, a CT scan of the abdomen and pelvis was performed. Images were recorded and evaluated at appropriate window settings. Reformats: coronal and sagittal. F or radiation dose reduction, the following was used: automated exposure control, adjustment of mA and /or kV according to patient size. COMPARISON: None. FINDINGS: Image quality: Diagnostic. Lower chest: Unremarkable. Liver: Normal morphology without focal lesion. Gallbladder: Surgically absent. Biliary tree: No intrahepatic or extrahepatic dilation, accounting for age. Spleen: No splenomegaly. Pancreas: No pancreatic ductal dilation. Adrenals: No adrenal nodule. Kidneys and ureters: No hydronephrosis. No renal cystic lesion which requires follow up. No solid mas s. Stomach, bowel and peritoneum: No gastric or small bowel dilation. No abnormal wall thickening. No pa thologic free fluid. Lymph nodes: No central or retroperitoneal adenopathy. Vessels: No infrarenal aortic aneurysm. Patent portal vein. PELVIS Reproductive organs: Unremarkable. Bladder: No abnormal wall thickening, accounting for underdistention. Pelvic lymph nodes: No pelvic adenopathy by size criteria. Bones: No aggressive osseous abnormality. Other: No significant ventral or inguinal hernia. IMPRESSION: No CT evidence for etiology of the patient's symptoms. Specifically, no evidence of pancreatitis, how ever CT is insensitive for acute pancreatitis. Reviewed by: Danna Palma MD on 04/11/2024 4:21 PM LOUISE Approved by: Danna Palma MD on 04/11/2024 4:21 PM [email or web address] Station ID: [id number]
[2024-04-11] MEDS: MECLIZINE 12.5 MG TABLET PO STA (18:02)
[2024-04-11 18:11] VITALS: O2SAT 100
[2024-04-11 18:22] LABS: BILIRUBIN,URINE NEGATIVE (NEGATIVE); GLUCOSE, URINE (UA) NEGATIVE (NEGATIVE); KETONES,URINE (UA) NEGATIVE (NEGATIVE); LEUKOCYTE ESTERASE, URINE NEGATIVE (NEGATIVE); NITRITE,URINE NEGATIVE (NEGATIVE); OCCULT BLOOD,URINE NEGATIVE (NEGATIVE); PH,URINE 7.5 PH (5.0-7.5); PROTEIN,URINE NEGATIVE (NEGATIVE); UROBILINOGEN,URINE 0.2 (NORMAL) E.U./dL (NORMAL)
[2024-04-11 18:24] LABS: CLARITY,URINE CLEAR (CLEAR)
[2024-04-11 19:05] VITALS: BP 136/84
[2024-04-11 19:09] LABS: B. PARAPERTUSSIS- RESP PCR PAN NOT DETECTED; B. PERTUSSIS- RESP PCR PANEL NOT DETECTED; C. PNEUMONIAE- RESP PCR PANEL NOT DETECTED; CORONAVIRUS 229E-RESP PCR NOT DETECTED; CORONAVIRUS HKU1-RESP PCR NOT DETECTED; CORONAVIRUS NL63-RESP PCR NOT DETECTED; CORONAVIRUS OC43-RESP PCR NOT DETECTED; HUMAN METAPNEUMOVIRUS NOT DETECTED; INFLUENZA A- RESP PCR PANEL NOT DETECTED; INFLUENZA B - RESP PCR PANEL NOT DETECTED; M. PNEUMONIAE- RESP PCR PANEL NOT DETECTED; PARAINFLUENZA VIRUS 1 NOT DETECTED; PARAINFLUENZA VIRUS 2 NOT DETECTED; PARAINFLUENZA VIRUS 3 NOT DETECTED; PARAINFLUENZA VIRUS 4 NOT DETECTED; RHINOVIRUS/ENTEROVIRUS NOT DETECTED; RSV- RESP PCR PANEL NOT DETECTED; SARS-CoV-2 -RESP PCR PANEL NOT DETECTED
== END 2024-04-11 19:02 | disposition home or self-care (01) ==
LOC: ED 14:39
DX: E86.0 Dehydration (principal); R11.2 Nausea with vomiting, unspecified; Z79.60 Long term (current) use of unspecified immunomodulators and immunosuppressants; I10 Essential (primary) hypertension; J45.909 Unspecified asthma, uncomplicated; Z85.3 Personal history of malignant neoplasm of breast; Z79.899 Other long term (current) drug therapy
CPT/HCPCS: 36415; 74177; 80053; 81003; 83690; 83735; 85025; 87633; 93005; 96360; 99283; 99284; A9270; Q9967; 81001; 87086